=== PATIENT | male | born 1940 | race Caucasian/White ===

== ENCOUNTER → 2017-03-22 | Outpatient (CLI) | payer BC ==
[~2017-03-22] MED LIST: ACET-1138 PO; ACET-1256 PO; ALLO100T PO; AMLO2.5T PO; AMOX875T PO; APIX1TAB3 PO; ASPEC81 PO; ASPI81TA28 PO; AZIT250T PO; CBCI IV; CEPH500C2 PO; CLC6 PO; DILT120C68 PO; ELQ25 PO; ERGO500037 PO; ERTA1INJ IV; FLM4 PO; FRS/40 PO; INSDGI SC; INSDGIPEN SC; ISOS30TA35 PO; ISOS60TA25 PO; LCTX PO; LEVO-366 PO; LEVO125T5 PO; LEVO125T8 PO; LEVO1TAB33 PO; LPR25 PO; LVQ750 PO; METO-551 PO; METO50TA16 PO; MRLP17X PO; NRV5 PO; NVLG SC; NVLGI SC; ONDA4TAB10 SL; OXYSR10 PO; PRAV20TA PO; ROSU40TA PO; RXC5 PO; SENN-61 PO; SNK PO; SYN137 PO; TRAM-10 PO
[2017-03-22 12:34] LABS: HEMATOCRIT 43.7 % (42-52); MEAN CELL VOLUME 93.4 fL (80-100); MEAN CORPUSCULAR HEMOGLOBIN 31.2 pg (25-34); MEAN CORPUSCULAR HGB CONC 33.4 g/dl (32-36); PLATELET COUNT 285 K/uL (130-400); RED BLOOD COUNT 4.68 M/uL (4.7-6.1); WHITE BLOOD COUNT 8.32 K/uL (4.8-10.8)
[2017-03-22 12:39] LABS: MANUAL MICROSCOPIC REQUIRED? NO; REVIEW REQ? NO; URINE APPEARANCE CLEAR (CLEAR); URINE BILIRUBIN NEG (NEG); URINE COLOR YELLOW; URINE NITRITE NEG (NEG); URINE PH 6.5 (4.5-7.5); URINE SPECIFIC GRAVITY 1.013 (1.000-1.030); UROBILINOGEN NEG (NEG)
[2017-03-22 13:17] LABS: BLOOD UREA NITROGEN 84 mg/dl (7-18); CALCIUM 9.1 mg/dl (8.5-10.1); CARBON DIOXIDE 26 mmol/L (21-32); CHLORIDE 102 mmol/L (98-107); GLUCOSE 315 mg/dl (70-99); POTASSIUM 5.2 mmol/L (3.5-5.1); SODIUM 136 mmol/L (136-145)
[2017-03-22 13:18] LABS: PHOSPHORUS 3.8 mg/dl (2.5-4.9)
[2017-03-22 13:30] LABS: BETA-HYDROXYBUTYRATE 0.85 mg/dL (0.2-2.81)
[2017-03-22 13:41] LABS: URINE PROTIEN/CREAT RATIO 0.3 (0-0.2)
== END | disposition home or self-care (01) ==
LOC: C.LAB 11:39
PROVIDERS: ATTEND Internal Medicine Nephrology
DX: E11.9 Type 2 diabetes mellitus without complications (principal); N18.3 Chronic kidney disease, stage 3 (moderate); I10 Essential (primary) hypertension; N25.81 Secondary hyperparathyroidism of renal origin

== ENCOUNTER → 2017-04-13 | Outpatient (CLI) | payer BC ==
[2017-04-13 09:31] LABS: MEAN CELL VOLUME 93.8 fL (80-100); MEAN CORPUSCULAR HEMOGLOBIN 30.4 pg (25-34); MEAN CORPUSCULAR HGB CONC 32.4 g/dl (32-36); MEAN PLATELET VOLUME 9.6 fL (7.4-10.4); PLATELET COUNT 257 K/uL (130-400); RED BLOOD COUNT 4.48 M/uL (4.7-6.1); WHITE BLOOD COUNT 7.15 K/uL (4.8-10.8)
[2017-04-13 09:42] LABS: URINE APPEARANCE CLEAR (CLEAR); URINE BILIRUBIN NEG (NEG); URINE COLOR YELLOW; URINE NITRITE NEG (NEG); URINE SPECIFIC GRAVITY 1.016 (1.000-1.030); UROBILINOGEN NEG (NEG)
[2017-04-13 09:55] LABS: CALCIUM 9.1 mg/dl (8.5-10.1)
[2017-04-13 09:56] LABS: MANUAL MICROSCOPIC REQUIRED? NO; REVIEW REQ? NO
[2017-04-13 09:58] LABS: BLOOD UREA NITROGEN 94 mg/dl (7-18); BUN/CREATININE RATIO 33.7 (10-20); CARBON DIOXIDE 24 mmol/L (21-32); CHLORIDE 104 mmol/L (98-107); GLUCOSE 263 mg/dl (70-99); PHOSPHORUS 3.7 mg/dl (2.5-4.9); POTASSIUM 4.9 mmol/L (3.5-5.1); SODIUM 137 mmol/L (136-145); URINE PROTIEN/CREAT RATIO 0.3 (0-0.2); URINE TOTAL PROTEIN 22.9 mg/dl (0-11.9)
== END | disposition home or self-care (01) ==
LOC: C.LAB 07:06
PROVIDERS: ATTEND Internal Medicine Nephrology
DX: I15.0 Renovascular hypertension (principal); I12.9 Hypertensive chronic kidney disease with stage 1 through stage 4 chronic kidney disease, or unspecified chronic kidney disease; N18.3 Chronic kidney disease, stage 3 (moderate); E55.9 Vitamin D deficiency, unspecified; N17.9 Acute kidney failure, unspecified

== ENCOUNTER → 2017-05-01 | Outpatient (CLI) | payer BC ==
--- NOTE | 2017-05-01 08:42 | DIAGNOSTIC IMAGING REPORT ---
ULTRASOUND KIDNEYS AND BLADDER CLINICAL HISTORY: Prostatomegaly. Diabetes. COMPARISON STUDY: Renal ultrasound dated 08/16/2013. TECHNIQUE: Real-time, grayscale, and color flow sonography of the kidneys and bladder is performed. Images are reviewed in the transverse and longitudinal planes. FINDINGS: Kidneys: The kidneys are atrophic. The right kidney measures 10.1 x 5.2 x 6.0 cm and the left kidney measures 10.8 x 6.4 x 6.9 cm. There is no hydronephrosis. No shadowing renal calculi are identified. A right renal cyst measures 1.7 cm. There is no sonographic evidence of solid mass lesion. No perinephric fluid is identified. Bladder: The prostate gland is enlarged and heterogeneous measuring 5.3 cm in transverse diameter. Median lobe hypertrophy is observed. The bladder wall appears thickened and trabeculated suggesting the sequelae of chronic outlet obstruction. Bilateral ureteral jets were seen. IMPRESSION: 1. The kidneys demonstrate cortical atrophy and are without hydronephrosis. 2. Prostatomegaly with evidence of chronic bladder outlet obstruction. Electronically signed by: Clyde Esparza M.D. 05/01/2017 8:41 AM Dictated Date/Time: 05/01/2017 8:39 AM
--- NOTE | 2017-05-01 08:50 | DIAGNOSTIC IMAGING REPORT ---
Duplex renal arterial Doppler DUPLEX RENAL ARTERY CLINICAL HISTORY: I10 [id number] Acute kidney injury hypertension TECHNIQUE: Doppler evaluation COMPARISON STUDY: 08/19/2013 FINDINGS: Moderate stenosis proximal right renal artery. No significant stenotic change of the left renal arterial vasculature. Resistive indices are unremarkable. IMPRESSION: 50-60% narrowing right renal artery at its origin. No additional significant stenotic process. Electronically signed by: Eliot Short M.D. 05/01/2017 8:49 AM Dictated Date/Time: 05/01/2017 8:30 AM
== END | disposition home or self-care (01) ==
LOC: C.ULTR 07:21
PROVIDERS: ATTEND Internal Medicine Nephrology
DX: I10 Essential (primary) hypertension (principal); N17.9 Acute kidney failure, unspecified; E11.9 Type 2 diabetes mellitus without complications; N18.3 Chronic kidney disease, stage 3 (moderate); N25.81 Secondary hyperparathyroidism of renal origin; N40.0 Benign prostatic hyperplasia without lower urinary tract symptoms

== ENCOUNTER → 2017-05-24 | Outpatient (CLI) | payer BC ==
[~2017-05-24] MED LIST changes: -AMOX875T PO; -AZIT250T PO; -ELQ25 PO; -FLM4 PO; -INSDGIPEN SC; -LCTX PO; -LEVO-366 PO; +LEVO125T4 PO; -LEVO125T5 PO; -LVQ750 PO; -MRLP17X PO; -ONDA4TAB10 SL
[2017-05-24 16:30] LABS: BASO % 0.4 %; BASO ABS # 0.04 K/uL (0-0.2); COMPLETE YES; EOS % 3.9 %; HEMATOCRIT 44.2 % (42-52); IG% 0.6 %; LYMPH % 23.9 %; LYMPH ABS # 2.41 K/uL (1.2-3.4); MEAN CELL VOLUME 92.9 fL (80-100); MEAN CORPUSCULAR HEMOGLOBIN 31.7 pg (25-34); MEAN CORPUSCULAR HGB CONC 34.2 g/dl (32-36); MEAN PLATELET VOLUME 9.4 fL (7.4-10.4); MONO % 12.4 %; NEUT % 58.8 %; PLATELET COUNT 308 K/uL (130-400); RED BLOOD COUNT 4.76 M/uL (4.7-6.1); WHITE BLOOD COUNT 10.09 K/uL (4.8-10.8)
[2017-05-24 17:01] LABS: BLOOD UREA NITROGEN 33 mg/dl (7-18); BUN/CREATININE RATIO 19.2 (10-20); CALCIUM 9.3 mg/dl (8.5-10.1); CARBON DIOXIDE 27 mmol/L (21-32); CHLORIDE 102 mmol/L (98-107); GLUCOSE 140 mg/dl (70-99); POTASSIUM 4.4 mmol/L (3.5-5.1); SODIUM 138 mmol/L (136-145); URIC ACID 6.8 mg/dl (2.6-7.2)
[2017-05-24 17:02] LABS: PHOSPHORUS 3.2 mg/dl (2.5-4.9)
[2017-05-24 18:26] LABS: LYME DISEASE AB IGG NEG (NEG); LYME DISEASE AB IGM NEG (NEG)
== END | disposition home or self-care (01) ==
LOC: C.LAB1850 15:20
PROVIDERS: ATTEND Physician Assistant
DX: E11.9 Type 2 diabetes mellitus without complications (principal); N40.0 Benign prostatic hyperplasia without lower urinary tract symptoms; N25.81 Secondary hyperparathyroidism of renal origin; I10 Essential (primary) hypertension; N17.9 Acute kidney failure, unspecified; N18.3 Chronic kidney disease, stage 3 (moderate); L03.113 Cellulitis of right upper limb; M10.9 Gout, unspecified

== ENCOUNTER 2017-05-25 16:11 | Emergency (ER) | payer BC ==
[~2017-05-25] VITALS: Ht 193 cm; Wt 102.5 kg
[~2017-05-25 16:11] MED LIST changes: -ACET-1256 PO; -ALLO100T PO; -AMLO2.5T PO; -APIX1TAB3 PO; -ASPI81TA28 PO; -CBCI IV; -CEPH500C2 PO; -CLC6 PO; -ERGO500037 PO; -ERTA1INJ IV; -LEVO125T4 PO; -LEVO1TAB33 PO; -LPR25 PO; -METO50TA16 PO; -NRV5 PO; -NVLG SC; -ROSU40TA PO; -SENN-61 PO; -SYN137 PO; -TRAM-10 PO
[2017-05-25 16:21] VITALS: TEMP 36.5; Ht 193 cm; Wt 102.5 kg
[2017-05-25] MEDS ORDERED: CEFTRIAXONE SOD INJ 1 GM ADDVIAL IV STA (16:41)
[2017-05-25] MEDS ORDERED: SODIUM CHLORIDE 0.9% 1000ML 1,000 ML IV STA (16:41)
[2017-05-25] MEDS ORDERED: TRAM-10 PO (16:41)
[2017-05-25] MEDS ORDERED: SODIUM CHLORIDE 0.9% 1000ML 1,000 ML IV ONE (16:41)
--- NOTE | 2017-05-25 16:41 | EMERGENCY ROOM VISIT NOTE ---
History Report prepared by Stevenson: Yony Morris Under the Supervision of: Dr. Dannie Obrien M.D. First contact with patient: 16:28 Chief Complaint: SWELLING TO EXTREMITY Stated Complaint: RED/SWELLING TO LT FOOT AND RT FORE FINGER History of Present Illness The patient is a 76 year old male with a history of diabetes who presents to the Emergency Room with complaints of worsening extremity swelling that started over a week ago. Per the patient's , the patient started having left foot swelling, redness, and pain over a week ago. The patient thought it was gout as he had a history of that, but the symptoms have persisted. He went to see a PA ( family medicine) and was put on Prednisone. The patient had 5 doses of the Prednisone and finished it. However, the patient's says that the Prednisone made the patient's sugars go over 400. Around 5 days ago, the patient started having right hand and finger swelling, redness, and pain. The patient saw the PA again, and had blood tests done (including Lyme), which resulted as normal this morning. He was put on Keflex, and has had 4 doses so far, with no relief of symptoms. The patient adds that he had chills a couple nights ago. He denies any fevers, chest pain, shortness of breath, or abdominal pain. The patient says that he has a history of kidney disease and hypertension. Source of History: patient, spouse/significant other Onset: Over a week ago Position: hand (right), foot (left) Quality: other (swelling, redness, pain) Timing: worsening Associated Symptoms: + chills (a couple nights ago), No fevers, No chest pain, No SOB, No abdominal pain Review of Systems See HPI for pertinent positives & negatives. A total of 10 systems reviewed and were otherwise negative. Past Medical & Surgical Medical Problems: (1) Diabetes mellitus Surgical Problems: (1) Post-operative state Old medical records were reviewed. Nurse's notes were reviewed and I agree with. Family History Family history omitted secondary to patient's advanced age. Social History Smoking Status: Former Smoker Alcohol Use: none Drug Use: none Marital Status: Housing Status: lives with family Occupation Status: retired Current/Historical Medications Scheduled Aspirin (Aspirin Ec), 81 MG PO DAILY Cephalexin Monohydrate (Keflex), 500 MG PO QID Diltiazem Hcl Ext Rel (Tiazac), 120 MG PO QAM Furosemide (Lasix), 40 MG PO QAM Insulin Aspart (Novolog), 1 DOSE SC AC Insulin Glargine (Lantus), 100 SC HS Isosorbide Mononitrate Ext Rel (Imdur Ext Rel), 60 MG PO QAM Isosorbide Mononitrate Ext Rel (Imdur Ext Rel), 1 TAB PO QAM Levothyroxine Sodium (Levothyroxine Sodium), 1 TAB PO QAM Metoprolol Tartrate (Lopressor), 50 MG PO BID Pravastatin (Pravachol ), 40 MG PO QAM Senna (Senna Lax), 17.2 MG PO HS Scheduled PRN Acetaminophen (Tylenol), 1,000 MG PO Q8H PRN for Pain Tramadol (Ultram), 50 MG PO Q4H PRN for Pain Allergies Coded Allergies: No Known Allergies (Verified , 05/25/17) Physical Exam Vital Signs Date Time Temp Pulse Resp B/P (MAP) Pulse Ox O2 Delivery O2 Flow Rate FiO2 05/25/17 18:39 61 18 181/78 99 05/25/17 17:49 60 16 169/60 100 Room Air 05/25/17 16:21 36.5 63 18 91/65 98 Room Air Physical Exam General: Well developed well nourished non ill appearing older male in no acute distress, breathing comfortably on room air. Normal speech HEENT: Normal cephalic atraumatic. Pupils are equal round and reactive to light. Extraocular movements are intact. Oropharynx is pink with moist mucous membranes. No swelling of the mouth lips or tongue. Neck: Supple with a midline trachea. No meningeal signs or stiffness, no JVD or bruits. No Stridor. Chest: Clear to auscultation bilaterally. No wheezes or rhonchi. No increased work of breathing. Heart: regular rate and rhythm. Abdomen: Soft nontender, nondistended without rebound guarding or rigidity. Extremities: Minimal redness of distal left foot, no warmth, 2+ pulses. Redness of right index finger and swelling into hand, full range of motion, normal pulse. Spine/Back. Non tender to palpation. No CVA tenderness Skin: Good turgor without rashes. Neurologic exam: Cranial nerves two through 12 are intact. Motor and sensation are intact and symmetrical throughout. Medical Decision & Procedures ER Provider Diagnostic Interpretation: X-ray results as stated below per interpretation by me and the radiologist: RIGHT HAND 3 VIEWS CLINICAL HISTORY: Right second finger pain and swelling. FINDINGS: 3 views of the right hand are obtained. No prior studies are available for comparison at the time of dictation. The skeletal structures are osteopenic. A ring is noted on the fourth finger. No fracture is identified. Mild osteoarthritic changes present the first carpometacarpal and metacarpophalangeal joints. Mild arthritic change is also seen involving the interphalangeal joints. No erosive change is identified. Soft tissue edema is present in the second and third digits. IMPRESSION: 1. Osteopenia and mild arthritic change as above. No acute bony abnormality is seen in the right hand. 2. Soft tissue swelling is noted in the second and third fingers. Electronically signed by: Clyde Esparza M.D. 05/25/2017 5:30 PM Dictated Date/Time: 05/25/2017 5:25 PM Laboratory Results 05/25/17 16:50 Red Blood Count 4.41, Mean Corpuscular Volume 93.7, Mean Corpuscular Hemoglobin 30.2, Mean Corpuscular Hemoglobin Concent 32.2, Mean Platelet Volume 9.3, Neutrophils (%) (Auto) 55.1, Lymphocytes (%) (Auto) 27.3, Monocytes (%) (Auto) 13.3, Eosinophils (%) (Auto) 3.5, Basophils (%) (Auto) 0.5, Neutrophils # (Auto ) 4.13, Lymphocytes # (Auto) 2.05, Monocytes # (Auto) 1.00, Eosinophils # (Auto ) 0.26, Basophils # (Auto) 0.04 05/25/17 16:50 Test 05/25/17 16:50 White Blood Count 7.50 K/uL (4.8-10.8) Red Blood Count 4.41 M/uL (4.7-6.1) Hemoglobin 13.3 g/dL (14.0-18.0) Hematocrit 41.3 % (42-52) Mean Corpuscular Volume 93.7 fL (80-100) Mean Corpuscular Hemoglobin 30.2 pg (25-34) Mean Corpuscular Hemoglobin Concent 32.2 g/dl (32-36) Platelet Count 273 K/uL (130-400) Mean Platelet Volume 9.3 fL (7.4-10.4) Neutrophils (%) (Auto) 55.1 % Lymphocytes (%) (Auto) 27.3 % Monocytes (%) (Auto) 13.3 % Eosinophils (%) (Auto) 3.5 % Basophils (%) (Auto) 0.5 % Neutrophils # (Auto) 4.13 K/uL (1.4-6.5) Lymphocytes # (Auto) 2.05 K/uL (1.2-3.4) Monocytes # (Auto) 1.00 K/uL (0.11-0.59) Eosinophils # (Auto) 0.26 K/uL (0-0.5) Basophils # (Auto) 0.04 K/uL (0-0.2) RDW Standard Deviation 44.5 fL (36.4-46.3) RDW Coefficient of Variation 13.0 % (11.5-14.5) Immature Granulocyte % (Auto) 0.3 % Immature Granulocyte # (Auto) 0.02 K/uL (0.00-0.02) Erythrocyte Sedimentation Rate 27 mm/hr (0-14) Anion Gap 8.0 mmol/L (3-11) Est Creatinine Clear Calc Drug Dose 42.2 ml/min Estimated GFR () 41.2 Estimated GFR (Non- 35.5 BUN/Creatinine Ratio 18.2 (10-20) Uric Acid 7.1 mg/dl (2.6-7.2) Calcium Level 8.8 mg/dl (8.5-10.1) Total Bilirubin 0.7 mg/dl (0.2-1) Direct Bilirubin 0.2 mg/dl (0-0.2) Aspartate Amino Transf (AST/SGOT) 16 U/L (15-37) Alanine Aminotransferase (ALT/SGPT) 26 U/L (12-78) Alkaline Phosphatase 71 U/L (45-117) C-Reactive Protein 2.63 mg/dl (0-0.29) Total Protein 6.3 gm/dl (6.4-8.2) Albumin 3.2 gm/dl (3.4-5.0) Lipase 142 U/L (73-393) Laboratory studies as stated above per my review. Medications Administered Medications (Trade) Dose Ordered Sig/Erik Route Start Time Stop Time Status Last Admin Dose Admin Sodium Chloride 1,000 ml @ 999 mls/hr Q1H1M STAT IV 05/25/17 16:41 05/25/17 17:41 DC 05/25/17 16:52 999 MLS/HR Ceftriaxone Sodium (Rocephin Inj) 1 gm NOW STAT IV 05/25/17 16:41 05/25/17 16:45 DC 05/25/17 16:55 1 GM ED Course 1631: Past medical records reviewed. The patient was evaluated in room A10, and a complete history and physical examination were performed. 164: Ordered Rocephin Inj 1 gm IV, NSS 1000 ml @ 150 mls/hr IV, NSS 1000 ml @ 999 mls/hr IV. 1824: Upon reevaluation, the patient is feeling better. His redness in the foot is almost completely gone, and the redness in his hand is less. I discussed the results and treatment plan with him. He verbalized agreement of the treatment plan. The patient was discharged home. Medical Decision Differentials include, but are not limited to; cellulitis, endocarditis, Lyme disease, gout, electrolyte or metabolic abnormality. Medication Reconciliation: I attest that I have personally reviewed the patient' s current medication list. Blood pressure Screening: Patient was found to have normal blood pressure on screening and does not require follow-up. This patient comes in as described above. He was placed in room A 10. He is here for treatment and evaluation of redness left foot and also right index finger. He looks well on exam and is been afebrile and his no systemic complaints she's been on Keflex and has had a couple dosages. There are lines drawn around these areas compared to yesterday he does not appear to have extended. The left foot is minimally red at this point compared to the right hand. He has no murmurs on exam and nothing to suggest endocarditis. Multiple blood testing was obtained he has no elevation of his white count the sedimentation rate and PRP are mildly elevated however. Blood cultures have been obtained and are pending. He was given Rocephin 1 g IV and reassessed in the ER. He remained stable and looks well. The redness has gone down significantly while he was here and the left foot minimally red and the right hand is much less red. X-rays are unremarkable the hand. Uric acid is unremarkable. It could be related to gout or another inflammatory process. Lyme testing was negative yesterday. The patient strongly desires to go home. I think this is reasonable with close follow-up. I encouraged him to return here tomorrow or to her regular doctor's office for recheck. Sooner if: increasing redness, fever of chills, worsening of symptoms, any new problems or concerns. The patient and his are happy with plan and he was discharged to home. Impression Primary Impression: Cellulitis of right hand Additional Impression: Cellulitis of left foot Scribe Attestation The scribe's documentation has been prepared under my direction and personally reviewed by me in its entirety. I confirm that the note above accurately reflects all work, treatment, procedures, and medical decision making performed by me. Medication Reconciliation: I attest that I have personally reviewed the patient' s current medication list. Departure Information Dispostion Home / Self-Care Referrals Navi Padilla M.D. (PCP) Forms HOME CARE DOCUMENTATION FORM, IMPORTANT VISIT INFORMATION, WORK / SCHOOL INSTRUCTIONS Patient Instructions My [facility] Additional Instructions Rest. Drink plenty of fluids. Continue her Keflex/cephalexin Return tomorrow here or your doctor's office for recheck Return sooner if: Fever or chills, increasing redness or red streaks, chest pain , worsening symptoms, any new problems or concerns Problem Qualifiers
[2017-05-25] MEDS ORDERED: ACET-1256 PO (16:43)
[2017-05-25] MEDS ORDERED: ASPI81TA28 PO (16:44)
[2017-05-25] MEDS ORDERED: NVLG SC (16:47)
[2017-05-25] MEDS ORDERED: INSDGI SC (16:49)
[2017-05-25] MEDS ORDERED: LEVO125T4 PO (16:52)
[2017-05-25] MEDS ORDERED: CEPH500C2 PO (16:55)
[2017-05-25 17:23] LABS: BASO % 0.5 %; BASO ABS # 0.04 K/uL (0-0.2); COMPLETE YES; EOS % 3.5 %; HEMATOCRIT 41.3 % (42-52); IG% 0.3 %; LYMPH % 27.3 %; LYMPH ABS # 2.05 K/uL (1.2-3.4); MEAN CELL VOLUME 93.7 fL (80-100); MEAN CORPUSCULAR HEMOGLOBIN 30.2 pg (25-34); MEAN CORPUSCULAR HGB CONC 32.2 g/dl (32-36); MEAN PLATELET VOLUME 9.3 fL (7.4-10.4); MONO % 13.3 %; NEUT % 55.1 %; PLATELET COUNT 273 K/uL (130-400); RED BLOOD COUNT 4.41 M/uL (4.7-6.1)
--- NOTE | 2017-05-25 17:31 | DIAGNOSTIC IMAGING REPORT ---
RIGHT HAND 3 VIEWS CLINICAL HISTORY: Right second finger pain and swelling. FINDINGS: 3 views of the right hand are obtained. No prior studies are available for comparison at the time of dictation. The skeletal structures are osteopenic. A ring is noted on the fourth finger. No fracture is identified. Mild osteoarthritic changes present the first carpometacarpal and metacarpophalangeal joints. Mild arthritic change is also seen involving the interphalangeal joints. No erosive change is identified. Soft tissue edema is present in the second and third digits. IMPRESSION: 1. Osteopenia and mild arthritic change as above. No acute bony abnormality is seen in the right hand. 2. Soft tissue swelling is noted in the second and third fingers. Electronically signed by: Clyde Esparza M.D. 05/25/2017 5:30 PM Dictated Date/Time: 05/25/2017 5:25 PM
[2017-05-25 18:04] LABS: C-REACTIVE PROTEIN 2.63 mg/dl (0-0.29); URIC ACID 7.1 mg/dl (2.6-7.2)
[2017-05-25 18:06] LABS: BUN/CREATININE RATIO 18.2 (10-20); CALCIUM 8.8 mg/dl (8.5-10.1); CREATININE 1.8 mg/dl (0.60-1.40); POTASSIUM 5.1 mmol/L (3.5-5.1)
[2017-05-25 18:39] VITALS: BP 181/78; PULSE 61; O2SAT 99
== END 2017-05-25 18:40 | disposition home or self-care (01) ==
LOC: C.EDB 16:13 → C.EDA 18:40
DX: L03.113 Cellulitis of right upper limb (principal); L03.116 Cellulitis of left lower limb; I12.9 Hypertensive chronic kidney disease with stage 1 through stage 4 chronic kidney disease, or unspecified chronic kidney disease; N18.9 Chronic kidney disease, unspecified; E11.9 Type 2 diabetes mellitus without complications; Z87.891 Personal history of nicotine dependence; Z79.82 Long term (current) use of aspirin; Z79.4 Long term (current) use of insulin; Z79.899 Other long term (current) drug therapy

== ENCOUNTER → 2017-06-03 | Outpatient (CLI) | payer BC ==
[~2017-06-03] MED LIST changes: -ACET-1138 PO; +ACET-1256 PO; +ALLO100T PO; +AMLO2.5T PO; +APIX1TAB3 PO; -ASPEC81 PO; +ASPI81TA28 PO; +CBCI IV; +CEPH500C2 PO; +CLC6 PO; +ERGO500037 PO; +ERTA1INJ IV; +LEVO125T4 PO; -LEVO125T8 PO; +LEVO1TAB33 PO; +LPR25 PO; +METO50TA16 PO; +NRV5 PO; +NVLG SC; -NVLGI SC; -OXYSR10 PO; +ROSU40TA PO; -RXC5 PO; +SENN-61 PO; +SYN137 PO; +TRAM-10 PO
[2017-06-03 11:16] LABS: HEMATOCRIT 40.9 % (42-52); MEAN CELL VOLUME 92.1 fL (80-100); MEAN CORPUSCULAR HEMOGLOBIN 30.4 pg (25-34); MEAN PLATELET VOLUME 9.2 fL (7.4-10.4); PLATELET COUNT 349 K/uL (130-400); RED BLOOD COUNT 4.44 M/uL (4.7-6.1)
[2017-06-03 11:27] LABS: BLOOD UREA NITROGEN 37 mg/dl (7-18); GLUCOSE 136 mg/dl (70-99)
[2017-06-03 11:28] LABS: ALT/SGPT 25 U/L (12-78); BUN/CREATININE RATIO 20.6 (10-20); CALCIUM 9.5 mg/dl (8.5-10.1); CARBON DIOXIDE 26 mmol/L (21-32); CHLORIDE 107 mmol/L (98-107); POTASSIUM 4.2 mmol/L (3.5-5.1); SODIUM 138 mmol/L (136-145); URIC ACID 6.4 mg/dl (2.6-7.2)
[2017-06-03 11:30] LABS: ALB/GLOB RATIO 0.8 (0.9-2); ALKALINE PHOSPHATASE 72 U/L (45-117); AST/SGOT 18 U/L (15-37)
== END | disposition home or self-care (01) ==
LOC: C.LABBC 07:40
PROVIDERS: ATTEND Internal Medicine Nephrology
DX: M1A.9XX0 Chronic gout, unspecified, without tophus (tophi) (principal); N18.3 Chronic kidney disease, stage 3 (moderate); N25.81 Secondary hyperparathyroidism of renal origin; I12.9 Hypertensive chronic kidney disease with stage 1 through stage 4 chronic kidney disease, or unspecified chronic kidney disease; N17.9 Acute kidney failure, unspecified

== ENCOUNTER → 2017-06-20 | Outpatient (CLI) | payer BC ==
--- NOTE | 2017-06-20 09:13 | DIAGNOSTIC IMAGING REPORT ---
RIGHT HAND MIN 3 VIEWS ROUTINE CLINICAL HISTORY: Right index finger pain and swelling. COMPARISON: Right hand radiographs May 25, 2017. FINDINGS: A ring is present on the fourth digit. There is marked soft tissue swelling of the right second digit. No fracture or radiopaque foreign body is identified. There is possible erosion within the lateral cortex of the mid shaft of the proximal phalanx of the right second finger which was not evident on prior exam of May 25, 2017. No additional sites of bony erosion are present. There is mild chondrocalcinosis within the TFCC. IMPRESSION: Marked soft tissue swelling of the right second finger with possible bony erosion involving the mid shaft of the proximal phalanx of the right second finger which was not evident on prior exam. This finding is nonspecific but could reflect osteomyelitis. An MRI could be obtained if no contraindications. Electronically signed by: Beny Ruiz M.D. 06/20/2017 9:12 AM Dictated Date/Time: 06/20/2017 9:04 AM
[2017-06-20 09:34] LABS: BASO % 0.5 %; BASO ABS # 0.05 K/uL (0-0.2); COMPLETE YES; EOS % 4.5 %; IG% 0.2 %; MEAN CELL VOLUME 92.3 fL (80-100); MEAN CORPUSCULAR HEMOGLOBIN 30.8 pg (25-34); MEAN CORPUSCULAR HGB CONC 33.3 g/dl (32-36); MEAN PLATELET VOLUME 9.4 fL (7.4-10.4); MONO % 10.1 %; NEUT % 51.7 %; PLATELET COUNT 263 K/uL (130-400); RED BLOOD COUNT 4.55 M/uL (4.7-6.1)
[2017-06-20 10:58] LABS: ESTIMATED AVERAGE GLUCOSE 269 mg/dl; HA1C FLAG Normal (Normal)
[2017-06-20 11:39] LABS: ALKALINE PHOSPHATASE 86 U/L (45-117); ALT/SGPT 29 U/L (12-78); AST/SGOT 18 U/L (15-37); BLOOD UREA NITROGEN 34 mg/dl (7-18); BUN/CREATININE RATIO 18.8 (10-20); CALCIUM 9.2 mg/dl (8.5-10.1); CARBON DIOXIDE 26 mmol/L (21-32); CHLORIDE 107 mmol/L (98-107); GLUCOSE 95 mg/dl (70-99); HDL CHOLESTEROL 43 mg/dl; POTASSIUM 3.7 mmol/L (3.5-5.1); SODIUM 140 mmol/L (136-145); TRIGLYCERIDES 115 mg/dl (0-150); URIC ACID 5.8 mg/dl (2.6-7.2); VERY LOW DENSITY LIPOPROT CALC 23 mg/dl
[2017-06-20 11:50] LABS: CHOLESTEROL 94 mg/dl (0-200); CHOLESTEROL/HDL RATIO 2.2; LDL CHOLESTEROL CALCULATED 28 mg/dl
== END | disposition home or self-care (01) ==
LOC: C.LAB1850 07:33
PROVIDERS: ATTEND Internal Medicine
DX: M79.89 Other specified soft tissue disorders (principal); E11.22 Type 2 diabetes mellitus with diabetic chronic kidney disease; N18.3 Chronic kidney disease, stage 3 (moderate); N17.9 Acute kidney failure, unspecified; E55.9 Vitamin D deficiency, unspecified; M10.9 Gout, unspecified; E03.9 Hypothyroidism, unspecified; E11.42 Type 2 diabetes mellitus with diabetic polyneuropathy

== ENCOUNTER → 2017-06-22 | Outpatient (CLI) | payer BC ==
--- NOTE | 2017-06-22 08:56 | DIAGNOSTIC IMAGING REPORT ---
RIGHT UPPER EXT NONJOINT WITHOUT HISTORY: 76 years-old Male M86.9 suspected osteomyelitis of the right second finger. COMPARISON: Right hand radiographs 06/20/2017 TECHNIQUE: Multiplanar multisequence MRI of the right hand was obtained without IV contrast. FINDINGS: There is moderate to extensive soft tissue swelling of the second digit centered about the PIP joint and proximal phalanx. Decreased T1 and increased T2 marrow signal with indistinctness of the cortex involves the distal aspect of the second proximal phalanx, nicely demonstrated on image 23 of the axial series and image 16 of the coronal series suggesting acute osteomyelitis. Additionally there is a prominent amount of periosteal edema within this distribution. The adjacent PIP joint is intact. Mild bone marrow edema involves the base of the second middle phalanx, notably involving the volar aspect without significantly decreased T1 signal suggesting reactive changes without definite osteomyelitis at this time. No focal drainable abscess seen. Additionally, mild amount of fluid surrounds the second flexor digitorum longus adjacent to the bony findings as above suggesting reactive or infectious tenosynovitis. No tendon tear identified. No additional focal bone marrow edema seen throughout the imaged hand or wrist. No fracture. Marginal spurring is mild joint space narrowing is seen throughout the metacarpal phalangeal and interphalangeal joints. Moderate degenerative changes involve the first carpal metacarpal joint. Additional joint space narrowing and marginal spurring is seen throughout the imaged intercarpal joints. The remaining imaged flexor and extensor tendons appear unremarkable. IMPRESSION: 1. Findings compatible with acute osteomyelitis involving the distal aspect of the second proximal phalanx with associated extensive soft tissue edema and swelling about the second digit centered at the PIP joint. 2. Mild bone marrow edema involves the adjacent second middle phalangeal base, notably along the volar aspect suggesting associated reactive changes. Early developing osteomyelitis may have a similar appearance. 3. Mild amount of fluid surrounding the second flexor digitorum longus adjacent to the PIP joint suggests reactive or infectious tenosynovitis. 4. Degenerative changes about the hand and wrist as above. The above report was generated using voice recognition software. It may contain grammatical, syntax or spelling errors. Electronically signed by: Reginald Pillai M.D. 06/22/2017 8:54 AM Dictated Date/Time: 06/22/2017 8:44 AM
== END | disposition home or self-care (01) ==
LOC: C.MRI 07:23
PROVIDERS: ATTEND Internal Medicine
DX: M86.9 Osteomyelitis, unspecified (principal)

== ENCOUNTER → 2017-07-06 | Outpatient (CLI) | payer BC ==
--- NOTE | 2017-07-06 16:43 | DIAGNOSTIC IMAGING REPORT ---
LEFT LOWER EXT JOINT WITHOUT CLINICAL HISTORY: 76 years-old Male presenting with left forefoot pain, concern for osteomyelitis, 2 months of symptoms, no trauma or injury, site of clinical concern marked. TECHNIQUE: Multisequence, multiplanar MR imaging of the left forefoot was performed without the use of intravenous contrast. IV contrast: None. COMPARISON: None. FINDINGS: Localizer images: Unremarkable. A skin marker is noted over the dorsum of the forefoot at the level of the second and third metatarsophalangeal joints. Along the entire dorsum of the foot is diffuse subcutaneous edema. There is also diffuse interfascial and intramuscular edema in both the flexor and extensor compartments of the forefoot. T2 hyperintensity with accompanying T1 hypointensity noted in the medial, middle, and lateral cuneiforms to varying degrees. Visualized portion of the cuboid appears normal. T2 hyperintensity with accompanying mild T1 hypointensity noted in the bases of the second through fifth metatarsals. Osseous erosion suggested at the medial base of the third and fourth metatarsals. Fluid noted within the articulation between the bases of the third and fourth metatarsals. Extensive T2 hyperintensity with accompanying T1 hypointensity along the fourth metatarsal diaphysis, which does not extend into the head of the fourth metatarsal. More subtle heterogeneous and mild T2 hyperintensity noted along the second metatarsal diaphysis extending into the metatarsal head without accompanying T1 hypointensity. No focal fluid collection to suggest abscess. Phalanges appear spared as do the metatarsophalangeal joints. IMPRESSION: Findings highly suspicious for osteomyelitis of the fourth metatarsal subjacent to diffuse subcutaneous infiltration along the dorsum of the foot which could suggest cellulitis. Subtle changes at the bases of the third and fourth metatarsals could suggest osteomyelitis/septic arthritis at this articulation. More subtle signal abnormalities within the tarsal bones, bases of the second through fifth metatarsals, and second metatarsal could be reactive or represent early osteomyelitis. Electronically signed by: Clifford Rodríguez M.D. 07/06/2017 4:42 PM Dictated Date/Time: 07/06/2017 4:31 PM
== END | disposition home or self-care (01) ==
LOC: C.MRIBC 15:18
PROVIDERS: ATTEND Internal Medicine Infectious Disease
DX: M86.9 Osteomyelitis, unspecified (principal)

== ENCOUNTER 2017-07-11 15:29 | Inpatient (IN) | payer BC, OTHER ==
[~2017-07-11] VITALS: Ht 193 cm; Wt 106.0 kg
[~2017-07-11 15:29] MED LIST changes: -ALLO100T PO; -AMLO2.5T PO; -APIX1TAB3 PO; -CBCI IV; -CEPH500C2 PO; -CLC6 PO; -ERGO500037 PO; -ERTA1INJ IV; -LEVO1TAB33 PO; -LPR25 PO; -METO50TA16 PO; -NRV5 PO; -ROSU40TA PO; -SENN-61 PO; -SYN137 PO
--- NOTE | 2017-07-11 17:10 | EMERGENCY ROOM VISIT NOTE ---
History Report prepared by Stevenson: Juliana Rodriguez Under the Supervision of: Dr. Clyde Yoon M.D. First contact with patient: 16:44 Chief Complaint: FOOT PAIN Stated Complaint: SORE LEFT FOOT History of Present Illness The patient is a 76 year old male who presents to the Emergency Room with complaints of constant left foot pain. The patient states that he has had increased swelling in his left foot. He rates his pain as a 8/10 when walking. The patient has osteomyelitis and was started IV Daptomycin and oral Levaquin on Monday--4 days ago. He denies fevers or chills. Dr. Mendoza referred the patient in to the ED. He has been dealing with osteomyelitis now for 1.5 months and has been on different antibiotics over that time frame. He has osteomyelitis in his right second finger but this site is improving and far less painful than before. He is here today because the left foot symptoms seem to be worsening. Source of History: patient Position: foot (left) Timing: constant, worsening Associated Symptoms: No fevers, No chills Note: Pt notes increased swelling. Review of Systems See HPI for pertinent positives & negatives. A total of 10 systems reviewed and were otherwise negative. Past Medical & Surgical Medical Problems: (1) Diabetes mellitus Surgical Problems: (1) Post-operative state Family History No pertinent family history stated. Social History Smoking Status: Former Smoker Alcohol Use: none Drug Use: none Marital Status: Housing Status: lives with family Occupation Status: retired Current/Historical Medications Scheduled Allopurinol (Zyloprim), 100 MG PO DAILY Amlodipine (Norvasc), 2.5 MG PO DAILY Aspirin (Aspirin Ec), 81 MG PO DAILY Daptomycin (Cubicin), 600 MG IV DAILY Ergocalciferol (Vitamin D 37030 Unit), 50,000 UNIT PO MONTHLY Insulin Aspart (Novolog), 1 DOSE SC AC Insulin Glargine (Lantus), 100 SC HS Insulin Glargine (Lantus), 10 UNITS SC QAM Levofloxacin (Levaquin), 500 MG PO DAILY Levothyroxine Sodium (Levothyroxine Sodium), 137 MCG PO DAILY Metoprolol Tartrate (Lopressor) (Lopressor), 50 MG PO QAM Rosuvastatin Calcium (Crestor), 40 MG PO DAILY Senna (Senokot), 1 TAB PO DAILY Scheduled PRN Acetaminophen (Tylenol), 1,000 MG PO Q8H PRN for Pain Tramadol (Ultram), 50 MG PO Q4H PRN for Pain Allergies Coded Allergies: No Known Allergies (Verified , 07/11/17) Physical Exam Vital Signs Date Time Temp Pulse Resp B/P (MAP) Pulse Ox O2 Delivery O2 Flow Rate FiO2 07/11/17 18:58 76 20 164/72 97 Room Air 07/11/17 17:20 75 20 158/71 97 Room Air 07/11/17 15:49 37.1 72 18 162/66 96 Room Air Physical Exam GENERAL: Patient is in no acute distress. HEENT: No acute trauma, normocephalic atraumatic, mucous membranes moist, no nasal congestion, no scleral icterus. NECK: No stridor, no adenopathy, no meningismus, trachea is midline. LUNGS: Clear to auscultation bilaterally, no wheeze, no rhonchi, breath sounds equal. HEART: Without murmurs gallops or rubs, regular rate and rhythm. ABDOMEN: Soft, nontender, bowel sounds positive, no hernias, no peritonitis. EXTREMITIES: Left foot warm, erythematous and swollen. Tenderness with palpation about the entire left foot. Right second finger swollen at PIP, no erythema or pain with movement of joint. Right lower extremity shows no edema or erythema. NEUROLOGIC: Oriented x 3, no acute motor or sensory deficits, no focal weakness. SKIN: No rash, no jaundice, no diaphoresis. Medical Decision & Procedures ER Provider Diagnostic Interpretation: Radiology results as stated below per my review and radiologist interpretation: LEFT LOWER EXTREMITY VENOUS DOPPLER FINDINGS: There is no deep venous thrombus within the left common femoral, superficial femoral or popliteal veins. There is minimal age indeterminate thrombus within the left posterior tibial vein. No additional sites of deep venous thrombus are present. IMPRESSION: Minimal thrombus within the left posterior tibial vein. No additional sites of deep venous thrombus. This thrombus is age indeterminate although the appearance favors chronic deep venous thrombus. Electronically signed by: Beny Ruiz M.D. Laboratory Results 07/11/17 17:20 Red Blood Count 4.00, Mean Corpuscular Volume 91.0, Mean Corpuscular Hemoglobin 30.3, Mean Corpuscular Hemoglobin Concent 33.2, Mean Platelet Volume 9.2, Neutrophils (%) (Auto) 54.0, Lymphocytes (%) (Auto) 28.7, Monocytes (%) (Auto) 13.2, Eosinophils (%) (Auto) 3.7, Basophils (%) (Auto) 0.2, Neutrophils # (Auto ) 4.32, Lymphocytes # (Auto) 2.30, Monocytes # (Auto) 1.06, Eosinophils # (Auto ) 0.30, Basophils # (Auto) 0.02 07/11/17 17:20 Test 07/11/17 17:20 White Blood Count 8.02 K/uL (4.8-10.8) Red Blood Count 4.00 M/uL (4.7-6.1) Hemoglobin 12.1 g/dL (14.0-18.0) Hematocrit 36.4 % (42-52) Mean Corpuscular Volume 91.0 fL (80-100) Mean Corpuscular Hemoglobin 30.3 pg (25-34) Mean Corpuscular Hemoglobin Concent 33.2 g/dl (32-36) Platelet Count 196 K/uL (130-400) Mean Platelet Volume 9.2 fL (7.4-10.4) Neutrophils (%) (Auto) 54.0 % Lymphocytes (%) (Auto) 28.7 % Monocytes (%) (Auto) 13.2 % Eosinophils (%) (Auto) 3.7 % Basophils (%) (Auto) 0.2 % Neutrophils # (Auto) 4.32 K/uL (1.4-6.5) Lymphocytes # (Auto) 2.30 K/uL (1.2-3.4) Monocytes # (Auto) 1.06 K/uL (0.11-0.59) Eosinophils # (Auto) 0.30 K/uL (0-0.5) Basophils # (Auto) 0.02 K/uL (0-0.2) RDW Standard Deviation 45.0 fL (36.4-46.3) RDW Coefficient of Variation 13.5 % (11.5-14.5) Immature Granulocyte % (Auto) 0.2 % Immature Granulocyte # (Auto) 0.02 K/uL (0.00-0.02) Erythrocyte Sedimentation Rate 53 mm/hr (0-14) Anion Gap 7.0 mmol/L (3-11) Est Creatinine Clear Calc Drug Dose 48.6 ml/min Estimated GFR () 44.1 Estimated GFR (Non- 38.1 BUN/Creatinine Ratio 23.3 (10-20) Calcium Level 9.1 mg/dl (8.5-10.1) C-Reactive Protein 3.93 mg/dl (0-0.29) Beta-Hydroxybutyric Acid 1.71 mg/dL (0.2-2.81) Laboratory results reviewed by me. Medications Administered Medications (Trade) Dose Ordered Sig/Erik Route Start Time Stop Time Status Last Admin Dose Admin Sodium Chloride 500 ml @ 999 mls/hr Q31M STAT IV 07/11/17 18:05 07/11/17 18:35 DC 07/11/17 18:53 999 MLS/HR Insulin Human Regular (novoLIN-R U-100 PER UNIT) 10 units NOW STAT IV 07/11/17 18:05 07/11/17 18:07 DC 07/11/17 18:53 10 UNITS ED Course 1700: The patient was evaluated in room B7. A complete history and physical exam was performed. 1714: [facility] [place] The patient will be evaluated for further management. 1805: Insulin Human Regular 10 units IV, Sodium Chloride 500 ml @ 999 mls/hr IV. 1810: Upon reexamination the patient is resting. I discussed results and treatment plan with the patient. He verbalizes agreement and understanding. The patient will be evaluated for further management. Medical Decision Differential diagnosis includes but is not limited to: failed outpatient treatment, DVT, bacteremia, cellulitis, worsening osteomyelitis. There is no leukocytosis or concerning anemia. Sedimentation rate and CRP are both somewhat elevated consistent with this infection. Some renal insufficiency was noted. Glucose was elevated at over 300. Left leg ultrasound shows what appears to be a possible chronic thrombus, no acute DVT seen. Blood cultures are pending. The patient is on IV daptomycin and oral Levaquin. Despite these meds, his left foot feels worse and is more swollen and reddened. There is more pain. The patient is failing outpatient treatment for osteomyelitis. The patient received IV insulin and IV saline. He was seen by the on-call hospitalist. Admission/observation is warranted. He likely will require some orthopedic intervention. I did speak with case management, the patient is aware of all his findings. Medication Reconcilliation Current Medication List: was personally reviewed by me Blood Pressure Screening Patient's blood pressure: Elevated blood pressure Blood pressure disposition: Elevated BP felt to be situational Consults Time Called: 1712 Consulting Physician: Dr. Beckett Returned Call: [phone] Discussed the patient's case. The patient will be evaluated for further management. Impression Primary Impression: Osteomyelitis Additional Impressions: Failure of outpatient treatment Hyperglycemia Scribe Attestation The scribe's documentation has been prepared under my direction and personally reviewed by me in its entirety. I confirm that the note above accurately reflects all work, treatment, procedures, and medical decision making performed by me. Departure Information Dispostion Being Evaluated By Hospitalist Referrals ,Navi Do M.D. (PCP) Patient Instructions My [facility] Problem Qualifiers
[2017-07-11 17:38] LABS: BASO % 0.2 %; BASO ABS # 0.02 K/uL (0-0.2); COMPLETE YES; EOS % 3.7 %; HEMATOCRIT 36.4 % (42-52); IG% 0.2 %; LYMPH % 28.7 %; MEAN CORPUSCULAR HEMOGLOBIN 30.3 pg (25-34); MEAN CORPUSCULAR HGB CONC 33.2 g/dl (32-36); MEAN PLATELET VOLUME 9.2 fL (7.4-10.4); MONO % 13.2 %; PLATELET COUNT 196 K/uL (130-400); WHITE BLOOD COUNT 8.02 K/uL (4.8-10.8)
[2017-07-11 18:00] LABS: BUN/CREATININE RATIO 23.3 (10-20); C-REACTIVE PROTEIN 3.93 mg/dl (0-0.29); CALCIUM 9.1 mg/dl (8.5-10.1); CREATININE 1.7 mg/dl (0.60-1.40); POTASSIUM 4.5 mmol/L (3.5-5.1)
[2017-07-11] MEDS ORDERED: NovoLIN-R INSULIN PER UNIT CHARGE IV STA (18:05)
[2017-07-11] MEDS ORDERED: SODIUM CHLORIDE 0.9% 500ML 500 ML IV STA (18:05)
[2017-07-11] MEDS ORDERED: SYN137 PO (18:09)
[2017-07-11] MEDS ORDERED: LEVO1TAB33 PO (18:09)
[2017-07-11 18:11] LABS: BETA-HYDROXYBUTYRATE 1.71 mg/dL (0.2-2.81)
[2017-07-11] MEDS ORDERED: SENN-61 PO (18:15)
[2017-07-11] MEDS ORDERED: MAGNESIUM HYDROXIDE SUSP 30 ML UDC PO PRN (18:15)
[2017-07-11] MEDS ORDERED: AMLO2.5T PO (18:15)
[2017-07-11] MEDS ORDERED: GLUCAGON FOR INJ 1 MG VIAL SQ PRN (18:15)
[2017-07-11] MEDS ORDERED: ERGO500037 PO (18:15)
[2017-07-11] MEDS ORDERED: DEXTROSE 50% 50 ML SYR IV PRN (18:15)
[2017-07-11] MEDS ORDERED: ROSU40TA PO (18:15)
[2017-07-11] MEDS ORDERED: GLUCOSE 10 TABS/TUBE PO PRN (18:15)
[2017-07-11] MEDS ORDERED: GLUCOSE 40% GEL 15 GM TUBE PO PRN (18:15)
[2017-07-11] MEDS ORDERED: HEPARIN SOD 5000 UNIT/0.5 ML CARP SQ SCH (18:15)
[2017-07-11] MEDS ORDERED: ALLO100T PO (18:15)
[2017-07-11] MEDS ORDERED: ONDANSETRON INJ 2 MG/ML 2 ML VIAL IV PRN (18:15)
[2017-07-11] MEDS ORDERED: ALUMINUM/MAGNESIUM/SIMETH (MAALOX MAX) 30 ML UDC PO PRN (18:15)
[2017-07-11] MEDS ORDERED: ACETAMINOPHEN 325 MG TAB PO PRN (18:15)
[2017-07-11] MEDS ORDERED: METO50TA16 PO (18:15)
[2017-07-11] MEDS ORDERED: CBCI IV (18:16)
[2017-07-11] MEDS ORDERED: INSDGI SC (18:27)
--- NOTE | 2017-07-11 18:46 | History and Physical ---
History & Physical Date & Time of Service: Jul 11, 2017 at 18:16 Chief Complaint: Sore Left Foot Primary Care Physician: Navi Padilla M.D. History of Present Illness Source: patient, spouse ( at bedside), clinic records, hospital records This is a 76 y/o male with a history of DM II, HTN, HLD, CAD, CKD stage III, hypothyroidism, BPH, and gout who presented to the ED on 07/11 with increasing pain and swelling in the left foot. The patient has known osteomyelitis in the left foot that he has been following with Dr. Mendoza as an outpatient for the last 2 months. The patient has failed multiple oral antibiotic therapies. The patient was recently started on daptomycin and PO Levaquin on 07/07. Despite this, he has developed worsening redness, swelling and pain in the left foot. The patient complains of an intermittent 8 or 9 out of 10 sharp pain in the left foot that is worse with walking/weight bearing. He denies any numbness or tingling. The patient also has osteomyelitis in his right second finger, but he states that this has been doing much better and he denies any pain there. The patient denies fevers, chills, sweats, chest pain, palpitations, claudication, cough, wheezing, shortness of breath, nausea, vomiting, abdominal pain, dysuria, hematuria, urinary retention, paralysis, weakness, numbness and tingling. Past Medical/Surgical History Medical Problems: (1) Diabetes mellitus type 2 Status: Chronic HTN HLD CAD CKD stage III Hypothyroidism BPH Gout Family History Diabetes mellitus Heart disease Hypertension Social History Smoking Status: Former Smoker (quit about 45 years ago) Smokeless Tobacco Use: No Alcohol Use: occasionally (rarely) Drug Use: none Marital Status: Housing status: lives with significant other Occupational Status: retired Immunizations History of Influenza Vaccine: No History of Tetanus Vaccine?: Yes Tetanus Immunization Date: Aug 05, 2013 History of Pneumococcal: Yes History of Hepatitis B Vaccine: No Multi-Drug Resistant Organisms History of MDRO: No Allergies Coded Allergies: No Known Allergies (Verified , 07/11/17) Home Medications Scheduled Allopurinol (Zyloprim), 100 MG PO DAILY Amlodipine (Norvasc), 2.5 MG PO DAILY Aspirin (Aspirin Ec), 81 MG PO DAILY Daptomycin (Cubicin), 600 MG IV DAILY Ergocalciferol (Vitamin D 71674 Unit), 50,000 UNIT PO MONTHLY Insulin Aspart (Novolog), 1 DOSE SC AC Insulin Glargine (Lantus), 100 SC HS Insulin Glargine (Lantus), 10 UNITS SC QAM Levofloxacin (Levaquin), 500 MG PO DAILY Levothyroxine Sodium (Levothyroxine Sodium), 137 MCG PO DAILY Metoprolol Tartrate (Lopressor) (Lopressor), 50 MG PO QAM Rosuvastatin Calcium (Crestor), 40 MG PO DAILY Senna (Senokot), 1 TAB PO DAILY Scheduled PRN Acetaminophen (Tylenol), 1,000 MG PO Q8H PRN for Pain Tramadol (Ultram), 50 MG PO Q4H PRN for Pain Review of Systems Constitutional: No fever, No chills, No sweats, No weakness, No fatigue Eyes: No worsening of vision, No eye pain, No diplopia ENT: No hearing loss, No sore throat, No trouble swallowing Respiratory: No cough, No wheezing, No shortness of breath Cardiovascular: No chest pain, No claudication, No palpitations Abdomen: No pain, No nausea, No vomiting Musculoskeletal: + joint pain (left foot), + swelling (left foot), No muscle pain, No calf pain Genitourinary - Male: No hematuria, No dysuria, No urinary retention Neurologic: No paralysis, No weakness, No numbness/tingling Integumentary: + color change (erythema left foot), No rash, No itch Physical Exam Vital Signs Date Time Temp Pulse Resp B/P (MAP) Pulse Ox O2 Delivery O2 Flow Rate FiO2 07/11/17 17:20 75 20 158/71 97 Room Air 07/11/17 15:49 37.1 72 18 162/66 96 Room Air General appearance: Well-developed, well-nourished, no apparent distress Head: Normocephalic, atraumatic Eyes: Normal inspection, PERRL, EOMI ENT: Normal ENT inspection, hearing grossly normal, pharynx normal Neck: Supple, no JVD, trachea midline Respiratory/Chest: Lungs clear to auscultation, normal breath sounds, no respiratory distress Cardiovascular: Regular rate & rhythm, no gallop, no murmur Abdomen/GI: Normal bowel sounds, non-tender, soft Extremities/Musculoskeletal: +Mild erythema and edema right second digit. Non- tender. Erythema left foot from toes to mid-dorsum. 2+ pitting edema left foot. Dorsum of foot TTP near bases of toes. Cap refill about 3 seconds. Sensation intact. No calf tenderness Neurological/Psych: Alert, normal mood/affect, oriented x 3 Skin: Normal color, warm/dry, no rash Diagnostics Laboratory Results Results Past 24 Hours Test 07/11/17 17:20 Range/Units White Blood Count 8.02 4.8-10.8 K/uL Red Blood Count 4.00 4.7-6.1 M/uL Hemoglobin 12.1 14.0-18.0 g/dL Hematocrit 36.4 42-52 % Mean Corpuscular Volume 91.0 80-100 fL Mean Corpuscular Hemoglobin 30.3 25-34 pg Mean Corpuscular Hemoglobin Concent 33.2 32-36 g/dl Platelet Count 196 130-400 K/uL Mean Platelet Volume 9.2 7.4-10.4 fL Neutrophils (%) (Auto) 54.0 % Lymphocytes (%) (Auto) 28.7 % Monocytes (%) (Auto) 13.2 % Eosinophils (%) (Auto) 3.7 % Basophils (%) (Auto) 0.2 % Neutrophils # (Auto) 4.32 1.4-6.5 K/uL Lymphocytes # (Auto) 2.30 1.2-3.4 K/uL Monocytes # (Auto) 1.06 0.11-0.59 K/uL Eosinophils # (Auto) 0.30 0-0.5 K/uL Basophils # (Auto) 0.02 0-0.2 K/uL RDW Standard Deviation 45.0 36.4-46.3 fL RDW Coefficient of Variation 13.5 11.5-14.5 % Immature Granulocyte % (Auto) 0.2 % Immature Granulocyte # (Auto) 0.02 0.00-0.02 K/uL Erythrocyte Sedimentation Rate 53 0-14 mm/hr Sodium Level 134 136-145 mmol/L Potassium Level 4.5 3.5-5.1 mmol/L Chloride Level 102 98-107 mmol/L Carbon Dioxide Level 25 21-32 mmol/L Anion Gap 7.0 3-11 mmol/L Blood Urea Nitrogen 40 7-18 mg/dl Creatinine 1.70 0.60-1.40 mg/dl Est Creatinine Clear Calc Drug Dose 48.6 ml/min Estimated GFR () 44.1 Estimated GFR (Non- 38.1 BUN/Creatinine Ratio 23.3 10-20 Random Glucose 354 70-99 mg/dl Calcium Level 9.1 8.5-10.1 mg/dl C-Reactive Protein 3.93 0-0.29 mg/dl Beta-Hydroxybutyric Acid 1.71 0.2-2.81 mg/dL Microbiology Results 07/11/17 Blood Culture, Received Pending 07/11/17 Blood Culture, Received Pending Impression Assessment and Plan 76 y/o male with a history of DM II, HTN, HLD, CAD, CKD stage III, hypothyroidism, BPH, and gout who presented to the ED on 07/11 with increasing pain and swelling in the left foot. Pt sent by Dr. Mendoza for further evaluation. Pt afebrile, VSS. ESR and CRP elevated at 53 and 3.93, respectively. No leukocytosis. Renal function about baseline. Random glucose elevated at 354, beta hydroxybutyric acid WNL. Pt received 10 units Novolin in ED. Osteomyelitis left foot, failed outpatient therapy -Admit to med/surg -Consult infectious disease, appreciate recs. Pt follows with Dr. Mendoza -Consult orthopedics, appreciate recs -NPO after midnight in case surgical intervention is needed -Daptomycin 600 mg IV q24h and Levaquin 500 mg IV q24h for now -Blood cultures pending -Doppler ultrasound LLE to r/o DVT -Continue home tramadol 40 mg PO q4h prn pain -Morphine 4 mg IV q4h prn pain -Reviewed previous MRIs. Osteomyelitis in left 4th metatarsal and likely 3rd metatarsal. Possible early osteomyelitis in 2nd metatarsal. Osteomyelitis in right second finger. DM II--last HgbA1c checked 06/20/17 was 11.0 -Continue Lantus 10 units SC qam and 100 units SC qpm. Pt will likely require increased insulin due to poor control, will leave up to day team -Insulin sliding scale -Check BSGs q ac and qhs HTN--stable -Continue Norvasc 2.5 mg PO qd and Lopressor 50 mg PO qd HLD, CAD--stable -Continue Crestor 40 mg PO qd and ASA 81 mg PO qd CKD stage III--baseline creatinine around 1.8 -Creatinine stable, at baseline Hypothyroidism -Continue Synthroid 137 mcg PO qd Gout -Continue allopurinol 100 mg PO qd DVT prophylaxis -Hold chemical prophylaxis for now in case surgical intervention is needed -TEDs and SCDs Code Status -Level I, FULL RESUSCITATION STATUS Attending Addendum: I have physically seen and examined this patient, have directed the physician assistants medical activities, and agree with the H&P as noted above with the following exceptions as noted. The patient is awake, alert and oriented 3, normocephalic and atraumatic, lying in bed and in no acute distress. HEENT--PERRL, EOMI, mucous membranes and oropharynx dry. Neck--supple, no JVD or bruits, thyroid normal, trachea midline, no adenopathy. Heart--normal S1 and S2, no extra beats, no murmurs, rubs or gallops. Lungs--clear bilaterally with good air movement, no respiratory distress, no accessory muscle use. Abdomen--normal bowel sounds and soft, nontender and nondistended, no hernias or masses, no organomegaly. Extremities/dermatologic--right lower extremity right second digit with mild erythema and edema that is nontender. Left foot with erythema and edema from base of toes to mid dorsum of foot that is tender to touch. Neurologic--cranial nerves II through XII grossly intact, motor and sensory examination normal. Rheumatologic--normal range of motion, nontender, muscles and joints. Psychiatric--normal affect. Assessment and Plan: 1. Left foot osteomyelitis--involving left third and fourth metatarsals. Right second finger osteomyelitis-- failure of outpatient therapy. Daptomycin 600 mg IV every 24 hours and levofloxacin 500 mg IV every 24 hours. Tramadol is due milligrams by mouth every 4 hours when necessary moderate pain Morphine sulfate 4 mg IV every 4 hours when necessary severe pain . Nothing by mouth after midnight for potential procedure in the a.m. Consult infectious disease, follows regularly with Dr. Mendoza. Consult orthopedics for possible bone biopsy. Order venous Doppler left lower extremity to rule out DVT. Level of Care Med/Surg Advanced Directives Existing Advance Directive: No Existing Living Will: No Existing Power of Credit Union Manager: No ( ) Resuscitation Status FULL RESUSCITATION VTE Prophylaxis VTE Risk Assessment Done? Y/N: Yes Risk Level: Moderate Given or contraindicated: Merari Owusu, SCD's
--- NOTE | 2017-07-11 18:49 | DIAGNOSTIC IMAGING REPORT ---
LEFT LOWER EXTREMITY VENOUS DOPPLER CLINICAL HISTORY: Left lower extremity swelling. COMPARISON STUDY: No previous studies for comparison. TECHNIQUE: Sonography of the deep venous system of the left lower extremity was performed. Compression and augmentation were evaluated. FINDINGS: There is no deep venous thrombus within the left common femoral, superficial femoral or popliteal veins. There is minimal age indeterminate thrombus within the left posterior tibial vein. No additional sites of deep venous thrombus are present. IMPRESSION: Minimal thrombus within the left posterior tibial vein. No additional sites of deep venous thrombus. This thrombus is age indeterminate although the appearance favors chronic deep venous thrombus. Electronically signed by: Beny Ruiz M.D. 07/11/2017 6:47 PM Dictated Date/Time: 07/11/2017 6:46 PM
[2017-07-11] MEDS ORDERED: POLYETHYLENE (MIRALAX) 17 GM PACK PO PRN (19:30)
[2017-07-11 20:02] VITALS: O2SAT 96
[2017-07-11 20:40] VITALS: BP 174/76; PULSE 77; TEMP 36.5; BMI 28.4
[2017-07-11] MEDS ORDERED: LEVOFLOXACIN / D5W 500 MG in PREMIXED IN D5W 100 ML IV SCH (21:00)
[2017-07-11] MEDS ORDERED: INSULIN ASPART 100 UNITS/ML 3 ML PEN SC SCH (21:00)
[2017-07-11] MEDS: INSULIN GLARGINE SC SCH (21:21)
[2017-07-11] MEDS ORDERED: DAPTOmycin IV 600 MG in SODIUM CHLORIDE 0.9% 50ML 50 ML IV SCH (22:00)
[2017-07-11 23:37] VITALS: BP 168/58; PULSE 82; TEMP 36.9; O2SAT 97
[2017-07-12] MEDS ORDERED: NURSING VERBAL MED ORDER ONE ×3 (01:00→17:45)
[2017-07-12] MEDS: LEVOTHYROXINE 137 MCG TAB PO SCH (05:52)
[2017-07-12] MEDS: INSULIN ASPART 100 UNITS/ML 3 ML PEN SC SCH ×3 (05:53→22:28)
[2017-07-12 07:57] VITALS: BP 172/74; PULSE 82; TEMP 37.1; O2SAT 96
--- NOTE | 2017-07-12 08:19 | Medical Consult ---
Consultation Date of Consultation: Jul 12, 2017. Attending Physician: Manuelito Armijo M.D. Reason for Consultation: Osteomyelitis History of Present Illness 76-year-old male well known to me from outpatient Infectious Disease follow-up, with history of gout and diabetes mellitus, who developed infection of his right 2nd finger as well as redness and swelling of his left foot, thought to be from gouty flare. Symptoms fail to improve, and patient ultimately had MRI scan which confirmed the presence of probable osteomyelitis of the finger. He was treated with a course of oral Zyvox, with improvement in his finger infection, however, patient developed worsening pain, redness, and swelling of his left foot, and MRI was obtained which revealed the presence of probable osteomyelitis. He was started on IV daptomycin and oral levofloxacin, but symptoms of worsening with increasing pain in the foot with increasing redness and swelling. As discussed, patient has been started empirically on daptomycin and Zosyn. Denies any significant fever or chills. Past Medical/Surgical History Medical Problems: (1) Cellulitis of left foot Status: Acute (2) Cellulitis of right hand Status: Acute (3) Failure of outpatient treatment Status: Acute (4) Hyperglycemia Status: Acute (5) Osteomyelitis Status: Acute Medical Problems: Diabetes mellitus, HTN HLD, gout, CKD, BPH Surgical Problems: (1) Post-operative state Family History Diabetes mellitus Heart disease Hypertension Social History Smoking Status: Former Smoker Smokeless Tobacco Use: No Alcohol Use: occasionally (rarely) Drug Use: none Marital Status: Housing Status: lives with family Occupation Status: retired Allergies Coded Allergies: No Known Allergies (Verified , 07/11/17) Current Inpatient Medications Current Inpatient Medications Medications (Trade) Dose Ordered Sig/Erik Route Start Time Stop Time Status Last Admin Dose Admin Acetaminophen (Tylenol Tab) 650 mg Q4H PRN PO 07/11/17 18:15 08/10/17 18:14 Al Hydrox/Mg Hydrox/Simethicone (Maalox Max Susp) 15 ml Q4H PRN PO 07/11/17 18:15 08/10/17 18:14 Magnesium Hydroxide (Milk Of Magnesia Susp) 30 ml Q6H PRN PO 07/11/17 18:15 08/10/17 18:14 Polyethylene (Miralax Powder Packet) 17 gm DAILY PRN PO 8/29/17 19:30 08/10/17 19:29 Ondansetron HCl (Zofran Inj) 4 mg Q6H PRN IV 07/11/17 18:15 08/10/17 18:14 Glucose (Glucose 40% Gel) 15-30 GRAMS 15 GRAMS... UD PRN PO 07/11/17 18:15 08/10/17 18:14 Glucose (Glucose Chew Tab) 4-8 Tablets 4 Tabl... UD PRN PO 07/11/17 18:15 08/10/17 18:14 Dextrose (Dextrose 50% 50ML Syringe) 25-50ML OF 50% DW IV FOR... UD PRN IV 07/11/17 18:15 08/10/17 18:14 Glucagon (Glucagon Inj) 1 mg UD PRN SQ 07/11/17 18:15 08/10/17 18:14 Allopurinol (Zyloprim Tab) 100 mg DAILY PO 07/12/17 09:00 08/11/17 08:59 Amlodipine Besylate (Norvasc Tab) 2.5 mg DAILY PO 07/12/17 09:00 08/11/17 08:59 Aspirin (Ecotrin Tab) 81 mg DAILY PO 07/12/17 09:00 08/11/17 08:59 Insulin Glargine (Lantus Vial) 10 units QAM SC 07/12/17 09:00 08/11/17 08:59 Insulin Glargine (Lantus Vial) 100 units HS SC 07/11/17 21:00 08/10/17 20:59 07/11/17 21:21 100 UNITS Levothyroxine Sodium (Synthroid Tab) 137 mcg DAILYBB PO 07/12/17 06:00 08/11/17 06:59 07/12/17 05:52 137 MCG Metoprolol Tartrate (Lopressor Tab) 50 mg QAM PO 07/12/17 09:00 08/11/17 08:59 Rosuvastatin Calcium (Crestor Tab) 40 mg DAILY PO 07/12/17 09:00 08/11/17 08:59 Senna (Senokot Tab) 8.6 mg DAILY PO 07/12/17 09:00 08/11/17 08:59 Tramadol HCl (Ultram Tab) 50 mg Q4H PRN PO 07/11/17 18:30 08/10/17 18:29 Morphine Sulfate (MoRPHine SULFATE INJ) 4 mg Q4H PRN IV 07/11/17 18:45 07/25/17 18:44 Daptomycin 600 mg/ Sodium Chloride 62 ml @ 100 mls/hr Q24H IV 07/12/17 09:00 08/23/17 08:59 Levofloxacin 500 mg/Prmx 100 ml @ 100 mls/hr Q24H IV 07/12/17 11:00 08/23/17 10:59 Insulin Aspart (novoLOG ASPART) SLIDING SCALE If C... Q6 SC 07/12/17 06:00 08/11/17 05:59 Heparin Sodium (Porcine) (Heparin 10 Unit/ ml 5 ml Flush) 5 ml PRN PRN FLUSH 07/12/17 08:15 08/11/17 08:14 Review of Systems All systems were reviewed and are negative except as per HPI Physical Exam Date Time Temp Pulse Resp B/P (MAP) Pulse Ox O2 Delivery O2 Flow Rate FiO2 07/12/17 07:57 37.1 82 20 172/74 (106) 96 Room Air 07/12/17 00:57 Room Air 07/11/17 23:37 36.9 82 16 168/58 (94) 97 Room Air 07/11/17 20:40 36.5 77 18 174/76 Room Air 07/11/17 20:02 76 153/67 96 07/11/17 18:58 76 20 164/72 97 Room Air 07/11/17 17:20 75 20 158/71 97 Room Air 07/11/17 15:49 37.1 72 18 162/66 96 Room Air General Appearance: WD/WN, no apparent distress Head: normocephalic, atraumatic Eyes: normal inspection, EOMI, sclerae normal ENT: normal ENT inspection, pharynx normal Neck: supple, no adenopathy, thyroid normal, trachea midline Respiratory/Chest: chest non-tender, lungs clear, normal breath sounds, no respiratory distress Cardiovascular: regular rate, rhythm, no gallop, no murmur Abdomen/GI: normal bowel sounds, non tender, soft, no organomegaly Back: normal inspection, no CVA tenderness Extremities/Musculoskelatal: no calf tenderness, + inflammation (left foot), + swelling (left foot), + pertinent finding (mild right 2nd finger swelling) Neurologic/Psych: alert, normal mood/affect, oriented x 3 Skin: normal color, warm/dry, no rash, + pertinent finding (left foot erythema) Lymphatic: no adenopathy Laboratory Results Date/Time Source Procedure Growth Status 07/11/17 17:25 Blood Blood Culture Pending Received 07/11/17 17:20 Blood Blood Culture Pending Received Last 24 Hours Test 07/11/17 17:20 07/11/17 19:40 07/11/17 20:40 07/12/17 04:44 White Blood Count 8.02 K/uL Red Blood Count 4.00 M/uL Hemoglobin 12.1 g/dL Hematocrit 36.4 % Mean Corpuscular Volume 91.0 fL Mean Corpuscular Hemoglobin 30.3 pg Mean Corpuscular Hemoglobin Concent 33.2 g/dl Platelet Count 196 K/uL Mean Platelet Volume 9.2 fL Neutrophils (%) (Auto) 54.0 % Lymphocytes (%) (Auto) 28.7 % Monocytes (%) (Auto) 13.2 % Eosinophils (%) (Auto) 3.7 % Basophils (%) (Auto) 0.2 % Neutrophils # (Auto) 4.32 K/uL Lymphocytes # (Auto) 2.30 K/uL Monocytes # (Auto) 1.06 K/uL Eosinophils # (Auto) 0.30 K/uL Basophils # (Auto) 0.02 K/uL RDW Standard Deviation 45.0 fL RDW Coefficient of Variation 13.5 % Immature Granulocyte % (Auto) 0.2 % Immature Granulocyte # (Auto) 0.02 K/uL Erythrocyte Sedimentation Rate 53 mm/hr Sodium Level 134 mmol/L Potassium Level 4.5 mmol/L Chloride Level 102 mmol/L Carbon Dioxide Level 25 mmol/L Anion Gap 7.0 mmol/L Blood Urea Nitrogen 40 mg/dl Creatinine 1.70 mg/dl Est Creatinine Clear Calc Drug Dose 48.6 ml/min Estimated GFR () 44.1 Estimated GFR (Non- 38.1 BUN/Creatinine Ratio 23.3 Random Glucose 354 mg/dl Calcium Level 9.1 mg/dl C-Reactive Protein 3.93 mg/dl Beta-Hydroxybutyric Acid 1.71 mg/dL Bedside Glucose 235 mg/dl 219 mg/dl Test 07/12/17 05:49 Bedside Glucose 94 mg/dl Patient Name: ROSE MARIEEVITA Cannon Unit Number: [id number] Dictated: 07/11/171845 Transcribed: 07/11/171845 JA Printed Date/Time: [~ rep prt dt]/[~ rep prt tm] [~ rep ct labl] - [~ rep ct ivnm] [facility] [place] [address] Dictated: 07/11/171845 Transcribed: 07/11/171845 JA Printed Date/Time: [~ rep prt dt]/[~ rep prt tm] [~ rep ct labl] - [~ rep ct ivnm] [~ rep ct add3]] LEFT LOWER EXTREMITY VENOUS DOPPLER CLINICAL HISTORY: Left lower extremity swelling. COMPARISON STUDY: No previous studies for comparison. TECHNIQUE: Sonography of the deep venous system of the left lower extremity was performed. Compression and augmentation were evaluated. FINDINGS: There is no deep venous thrombus within the left common femoral, superficial femoral or popliteal veins. There is minimal age indeterminate thrombus within the left posterior tibial vein. No additional sites of deep venous thrombus are present. IMPRESSION: Minimal thrombus within the left posterior tibial vein. No additional sites of deep venous thrombus. This thrombus is age indeterminate although the appearance favors chronic deep venous thrombus. Electronically signed by: Beny Ruiz M.D. 07/11/2017 6:47 PM Dictated Date/Time: 07/11/2017 6:46 PM The status of this report is Signed. Draft = Not yet reviewed or approved by Radiologist. Signed = Reviewed and approved by Radiologist. <AttendingPhy></AttendingPhy> <FamilyPhy>Navi Padilla M.D.</FamilyPhy> < PrimaryPhy>Navi Padilla M.D.</PrimaryPhy> <UnitNumber>[id number]</UnitNumber > <VisitNumber>[id number]</VisitNumber> <PatientName>ROSE MARIEEVITA Kassandra</ PatientName> <DateOfBirth>1940</DateOfBirth> <Location>C[facility]EDB</Location> < ServiceDate>07/11/17</ServiceDate> <MNE>ESINDI</MNE> <OrderingPhy>Clyde Yoon M.D.</OrderingPhy> <OrderingPhyMNE>f rep ord dr lopez</OrderingPhyMNE> < DictatingPhyMNE>f rep dict dr lopez</DictatingPhyMNE> <CCListMNE>f rep ct john</ CCListMNE> <AdmittingPhyMNE>f pt admit dr lopez</AdmittingPhyMNE> <AttendingPhyMNE >f pt attend dr lopez</AttendingPhyMNE> <ConsultingPhyMNE>f pt consult dr lopez</ConsultingPhyMNE> <FamilyPhyMNE>f pt fam dr lopez</FamilyPhyMNE> <OtherPhyMNE>f pt other dr lopez</OtherPhyMNE> < PrimaryPhyMNE>f pt prim care dr lopez</PrimaryPhyMNE> <ReferringPhyMNE>f pt referring dr lopez</ReferringPhyMNE> Assessment & Plan 76 yo diabetic male with osteomyelitis of left foot as well as right 2nd finger. Has failed outpatient therapy, and so have admitted for more aggressive IV antibiotics. Will continue daptomycin, change levofloxacin to Zosyn pending cultures. Agree with orthopedic consultation. Will follow.
[2017-07-12] MEDS: INSULIN GLARGINE SC SCH ×2 (09:00→22:28)
[2017-07-12 09:01] LABS: HEMATOCRIT 37.7 % (42-52); MEAN CELL VOLUME 91.1 fL (80-100); MEAN CORPUSCULAR HGB CONC 32.9 g/dl (32-36); MEAN PLATELET VOLUME 9.2 fL (7.4-10.4); PLATELET COUNT 211 K/uL (130-400); RED BLOOD COUNT 4.14 M/uL (4.7-6.1); WHITE BLOOD COUNT 10.37 K/uL (4.8-10.8)
[2017-07-12 09:19] LABS: CALCIUM 9.4 mg/dl (8.5-10.1); CREATININE 1.5 mg/dl (0.60-1.40); POTASSIUM 3.9 mmol/L (3.5-5.1)
[2017-07-12] MEDS: ASPIRIN 81 MG ECTAB PO SCH (09:30)
[2017-07-12] MEDS: DAPTOmycin IV 600 MG in SODIUM CHLORIDE 0.9% 50ML 50 ML IV SCH (09:30)
[2017-07-12] MEDS: AMLODIPINE BESYLATE 5 MG TAB PO SCH (09:31)
[2017-07-12] MEDS: ALLOPURINOL 100 MG TAB PO SCH (09:31)
[2017-07-12] MEDS: METOPROLOL TARTRATE 50 MG TAB PO SCH (09:32)
[2017-07-12] MEDS: ROSUVASTATIN CALCIUM 20 MG TAB PO SCH (09:32)
[2017-07-12] MEDS: SENNA 8.6 MG TAB PO SCH (09:33)
[2017-07-12] MEDS ORDERED: PIPERACILL/TAZOBAC CONSULT ACTIVE PRN (10:15)
[2017-07-12] MEDS ORDERED: PIPERACILL/TAZOBAC IV 3.375 GM in DEXTROSE 5% 100ML 100 ML IV ONE (10:30)
[2017-07-12] MEDS ORDERED: LEVOFLOXACIN / D5W 500 MG in PREMIXED IN D5W 100 ML IV SCH (11:00)
[2017-07-12] MEDS ORDERED: DEXTROSE 50% 50 ML SYR IV STA (12:08)
--- NOTE | 2017-07-12 13:41 | Progress Note ---
Subjective Date of Service: Jul 12, 2017. Subjective Pt evaluation today including: conversation w/ patient, physical exam, chart review, lab review, review of studies, review of inpatient medication list Resting comfortably in bed Denies any fevers or worsening pain NPO at this time No acute events overnight Problem List Medical Problems: (1) Cellulitis of left foot Status: Acute (2) Cellulitis of right hand Status: Acute (3) Failure of outpatient treatment Status: Acute (4) Hyperglycemia Status: Acute (5) Osteomyelitis Status: Acute Review of Systems Constitutional: No fever, No chills, No sweats, No weakness Eyes: No worsening of vision, No eye pain, No redness, No discharge ENT: No hearing loss, No unusual epistaxis, No nasal symptoms, No sore throat Respiratory: No cough, No sputum, No wheezing, No shortness of breath Cardiac: No chest pain, No orthopnea, No PND, No edema, No claudication Abdomen: No pain, No nausea, No vomiting, No diarrhea, No constipation Musculoskeletal: No joint pain, No muscle pain, No swelling, No calf pain Male : No dysuria, No urinary frequency, No incontinence, No slowing stream Neurologic: No memory loss, No paralysis, No weakness, No numbness/tingling Psychiatric: No depression symptoms, No anhedonism, No anxiety, No insomnia Endo: No fatigue, No excessive thirst Skin: No rash, No itch Objective Vital Signs Date Time Temp Pulse Resp B/P (MAP) Pulse Ox O2 Delivery O2 Flow Rate FiO2 07/12/17 07:57 37.1 82 20 172/74 (106) 96 Room Air 07/12/17 00:57 Room Air 07/11/17 23:37 36.9 82 16 168/58 (94) 97 Room Air 07/11/17 20:40 36.5 77 18 174/76 Room Air 07/11/17 20:02 76 153/67 96 07/11/17 18:58 76 20 164/72 97 Room Air 07/11/17 17:20 75 20 158/71 97 Room Air 07/11/17 15:49 37.1 72 18 162/66 96 Room Air Physical Exam General Appearance: WD/WN, no apparent distress Neck: supple, no adenopathy, thyroid normal, no JVD Respiratory/Chest: chest non-tender, lungs clear, normal breath sounds, no respiratory distress Cardiovascular: regular rate, rhythm, no edema, no gallop, no JVD Abdomen: normal bowel sounds, non tender, soft, no organomegaly Extremities: non-tender, normal inspection, no pedal edema, no calf tenderness Neurologic/Psychiatric: no motor/sensory deficits, alert, normal mood/affect, oriented x 3 Laboratory Results Last 24 Hours Test 07/11/17 17:20 07/11/17 19:40 07/11/17 20:40 07/12/17 05:49 White Blood Count 8.02 K/uL Red Blood Count 4.00 M/uL Hemoglobin 12.1 g/dL Hematocrit 36.4 % Mean Corpuscular Volume 91.0 fL Mean Corpuscular Hemoglobin 30.3 pg Mean Corpuscular Hemoglobin Concent 33.2 g/dl Platelet Count 196 K/uL Mean Platelet Volume 9.2 fL Neutrophils (%) (Auto) 54.0 % Lymphocytes (%) (Auto) 28.7 % Monocytes (%) (Auto) 13.2 % Eosinophils (%) (Auto) 3.7 % Basophils (%) (Auto) 0.2 % Neutrophils # (Auto) 4.32 K/uL Lymphocytes # (Auto) 2.30 K/uL Monocytes # (Auto) 1.06 K/uL Eosinophils # (Auto) 0.30 K/uL Basophils # (Auto) 0.02 K/uL RDW Standard Deviation 45.0 fL RDW Coefficient of Variation 13.5 % Immature Granulocyte % (Auto) 0.2 % Immature Granulocyte # (Auto) 0.02 K/uL Erythrocyte Sedimentation Rate 53 mm/hr Sodium Level 134 mmol/L Potassium Level 4.5 mmol/L Chloride Level 102 mmol/L Carbon Dioxide Level 25 mmol/L Anion Gap 7.0 mmol/L Blood Urea Nitrogen 40 mg/dl Creatinine 1.70 mg/dl Est Creatinine Clear Calc Drug Dose 48.6 ml/min Estimated GFR () 44.1 Estimated GFR (Non- 38.1 BUN/Creatinine Ratio 23.3 Random Glucose 354 mg/dl Calcium Level 9.1 mg/dl C-Reactive Protein 3.93 mg/dl Beta-Hydroxybutyric Acid 1.71 mg/dL Bedside Glucose 235 mg/dl 219 mg/dl 94 mg/dl Test 07/12/17 08:34 White Blood Count 10.37 K/uL Red Blood Count 4.14 M/uL Hemoglobin 12.4 g/dL Hematocrit 37.7 % Mean Corpuscular Volume 91.1 fL Mean Corpuscular Hemoglobin 30.0 pg Mean Corpuscular Hemoglobin Concent 32.9 g/dl RDW Standard Deviation 44.6 fL RDW Coefficient of Variation 13.4 % Platelet Count 211 K/uL Mean Platelet Volume 9.2 fL Nucleated RBC Absolute Count (auto) 0.02 K/uL Nucleated Red Blood Cells % 0.2 % Sodium Level 140 mmol/L Potassium Level 3.9 mmol/L Chloride Level 108 mmol/L Carbon Dioxide Level 25 mmol/L Anion Gap 7.0 mmol/L Blood Urea Nitrogen 30 mg/dl Creatinine 1.50 mg/dl Est Creatinine Clear Calc Drug Dose 55.1 ml/min Estimated GFR () 51.3 Estimated GFR (Non- 44.3 BUN/Creatinine Ratio 20.0 Random Glucose 79 mg/dl Calcium Level 9.4 mg/dl Assessment and Plan 76 y/o male with a history of DM II, HTN, HLD, CAD, CKD stage III, hypothyroidism, BPH, and gout who presented to the ED on 07/11 with increasing pain and swelling in the left foot. Pt sent by Dr. Mendoza for further evaluation. Pt afebrile, VSS. ESR and CRP elevated at 53 and 3.93, respectively. No leukocytosis. Renal function about baseline. Random glucose elevated at 354, beta hydroxybutyric acid WNL. Pt received 10 units Novolin in ED. Osteomyelitis left foot, failed outpatient therapy -Admit to med/surg -Consult infectious disease, appreciate recs. Pt follows with Dr. Mendoza -Consult orthopedics, appreciate recs, NPO at this time -Cont daptomycin 600 mg IV q24h and switch Levaquin 500 mg IV q24h to zosyn IV -Blood cultures pending -Doppler ultrasound LLE age indeterminate post tibial thrombus noted -Continue home tramadol 40 mg PO q4h prn pain -Morphine 4 mg IV q4h prn pain -Reviewed previous MRIs. Osteomyelitis in left 4th metatarsal and likely 3rd metatarsal. Possible early osteomyelitis in 2nd metatarsal. Osteomyelitis in right second finger. DM II--last HgbA1c checked 06/20/17 was 11.0 -Hold lantus due to hypoglycemia, ISS -Check BSGs q ac and qhs HTN--stable -Continue Norvasc 2.5 mg PO qd and Lopressor 50 mg PO qd HLD, CAD--stable -Continue Crestor 40 mg PO qd and ASA 81 mg PO qd CKD stage III--baseline creatinine around 1.8 -Creatinine stable, at baseline Hypothyroidism -Continue Synthroid 137 mcg PO qd Gout -Continue allopurinol 100 mg PO qd DVT prophylaxis -Hold chemical prophylaxis for now in case surgical intervention is needed -TEDs and SCDs Code Status -Level I, FULL RESUSCITATION STATUS
[2017-07-12 15:57] VITALS: BP 170/64; PULSE 64; TEMP 36.4; O2SAT 91
[2017-07-12] MEDS: PIPERACILL/TAZOBAC IV 3.375 GM in DEXTROSE 5% 100ML 100 ML IV SCH ×2 (16:17→23:29)
--- NOTE | 2017-07-12 16:19 | CONSULTATION REPORT ---
DATE OF CONSULTATION: 07/12/2017 HISTORY OF PRESENT ILLNESS: The patient is a very pleasant 76-year-old white male who presents with a painful left foot. He has been on intravenous antibiotics and being treated by Dr. Mendoza for osteomyelitis of his left foot metatarsal, had an MRI scan about a week prior, presents with inability to weightbear without pain due to such. On inspection, it was clear that he has some very mild redness in the dorsal aspect of the second and third metatarsal area, no discoloration or any type wound on the plantar surface. Plantar surface is pain free to touch, some mild pain dorsally over the second metatarsal head. I discussed the situation regarding possible bone biopsy, will discuss the case with Dr. De La Fuente for definitive management potential for bone biopsy on Monday. ASSESSMENT AND PLAN: Metatarsal pain with osteomyelitis. As noted, plan for potential biopsy pending further discussion with Dr. De La Fuente.
[2017-07-12] MEDS ORDERED: INSULIN ASPART 100 UNITS/ML 3 ML PEN SC SCH (18:45)
[2017-07-12] MEDS: MoRPHine SULFATE 4 MG/ML 1 ML CARP\\VIAL IV PRN (22:34)
[2017-07-12 22:55] VITALS: BP 182/70; PULSE 77; TEMP 37.1; O2SAT 96
[2017-07-12 23:57] VITALS: BP 168/70
[2017-07-13] MEDS: MoRPHine SULFATE 4 MG/ML 1 ML CARP\\VIAL IV PRN ×2 (04:06→13:58)
[2017-07-13] MEDS: LEVOTHYROXINE 137 MCG TAB PO SCH (05:19)
[2017-07-13 05:31] LABS: HEMATOCRIT 34.4 % (42-52); MEAN CELL VOLUME 88.9 fL (80-100); MEAN CORPUSCULAR HEMOGLOBIN 29.7 pg (25-34); MEAN CORPUSCULAR HGB CONC 33.4 g/dl (32-36); PLATELET COUNT 199 K/uL (130-400); RED BLOOD COUNT 3.87 M/uL (4.7-6.1); WHITE BLOOD COUNT 10.35 K/uL (4.8-10.8)
[2017-07-13 06:12] LABS: BUN/CREATININE RATIO 16.6 (10-20); CREATININE 1.5 mg/dl (0.60-1.40); POTASSIUM 3.5 mmol/L (3.5-5.1)
[2017-07-13 06:20] LABS: CALCIUM 8.4 mg/dl (8.5-10.1)
[2017-07-13 07:10] VITALS: BP 159/56; PULSE 91; TEMP 37; O2SAT 95
[2017-07-13] MEDS: DAPTOmycin IV 600 MG in SODIUM CHLORIDE 0.9% 50ML 50 ML IV SCH (09:20)
[2017-07-13] MEDS: PIPERACILL/TAZOBAC IV 3.375 GM in DEXTROSE 5% 100ML 100 ML IV SCH ×3 (09:20→23:44)
[2017-07-13] MEDS: SENNA 8.6 MG TAB PO SCH (09:21)
[2017-07-13] MEDS: ASPIRIN 81 MG ECTAB PO SCH (09:21)
[2017-07-13] MEDS: AMLODIPINE BESYLATE 5 MG TAB PO SCH (09:21)
[2017-07-13] MEDS: ROSUVASTATIN CALCIUM 20 MG TAB PO SCH (09:22)
[2017-07-13] MEDS: METOPROLOL TARTRATE 50 MG TAB PO SCH (09:22)
[2017-07-13] MEDS: ALLOPURINOL 100 MG TAB PO SCH (09:22)
[2017-07-13] MEDS: INSULIN ASPART 100 UNITS/ML 3 ML PEN SC SCH ×5 (09:30→23:44)
[2017-07-13] MEDS: INSULIN GLARGINE SC SCH (09:31)
[2017-07-13] MEDS ORDERED: PHARMACY GLYCEMIC MGMT CONSULT PRN (10:53)
[2017-07-13] MEDS: TRAMADOL HCL 50 MG TAB PO PRN (11:02)
--- NOTE | 2017-07-13 12:02 | Progress Note ---
Subjective Date of Service: Jul 13, 2017. Subjective Pt evaluation today including: conversation w/ patient, physical exam, chart review, lab review, review of studies, review of inpatient medication list Problem List Medical Problems: (1) Cellulitis of left foot Status: Acute (2) Cellulitis of right hand Status: Acute (3) Failure of outpatient treatment Status: Acute (4) Hyperglycemia Status: Acute (5) Osteomyelitis Status: Acute Review of Systems Constitutional: No fever, No sweats, No weakness Eyes: No worsening of vision, No eye pain, No redness, No discharge Respiratory: No cough, No sputum, No wheezing, No shortness of breath, No dyspnea on exertion Cardiac: No chest pain, No orthopnea, No PND, No edema, No claudication Abdomen: No pain, No nausea, No vomiting, No diarrhea, No constipation Musculoskeletal: No joint pain, No muscle pain, No swelling Male : No dysuria, No incontinence Neurologic: No memory loss, No paralysis, No weakness, No numbness/tingling Psychiatric: No depression symptoms, No anhedonism, No anxiety, No insomnia Endo: No fatigue, No excessive thirst Skin: No rash, No itch Objective Vital Signs Date Time Temp Pulse Resp B/P (MAP) Pulse Ox O2 Delivery O2 Flow Rate FiO2 07/13/17 07:10 37.0 91 18 159/56 (90) 95 Room Air 07/12/17 23:57 168/70 (102) 07/12/17 23:26 Room Air 07/12/17 22:55 37.1 77 18 182/70 (107) 96 Room Air 07/12/17 15:57 36.4 64 18 170/64 (99) 91 Room Air 07/12/17 15:45 Room Air Physical Exam General Appearance: WD/WN, no apparent distress Neck: supple, no adenopathy, thyroid normal Respiratory/Chest: chest non-tender, lungs clear, normal breath sounds, no respiratory distress Cardiovascular: regular rate, rhythm, no edema, no gallop, no JVD Abdomen: normal bowel sounds, non tender, soft, no organomegaly Extremities: non-tender, normal inspection, no pedal edema Neurologic/Psychiatric: no motor/sensory deficits, alert, normal mood/affect, oriented x 3 Laboratory Results Last 24 Hours Test 07/12/17 12:39 07/12/17 16:55 07/12/17 20:41 07/13/17 05:15 Bedside Glucose 143 mg/dl 213 mg/dl 330 mg/dl White Blood Count 10.35 K/uL Red Blood Count 3.87 M/uL Hemoglobin 11.5 g/dL Hematocrit 34.4 % Mean Corpuscular Volume 88.9 fL Mean Corpuscular Hemoglobin 29.7 pg Mean Corpuscular Hemoglobin Concent 33.4 g/dl RDW Standard Deviation 43.2 fL RDW Coefficient of Variation 13.3 % Platelet Count 199 K/uL Mean Platelet Volume 9.0 fL Sodium Level 141 mmol/L Potassium Level 3.5 mmol/L Chloride Level 108 mmol/L Carbon Dioxide Level 27 mmol/L Anion Gap 6.0 mmol/L Blood Urea Nitrogen 25 mg/dl Creatinine 1.50 mg/dl Est Creatinine Clear Calc Drug Dose 55.1 ml/min Estimated GFR () 51.3 Estimated GFR (Non- 44.3 BUN/Creatinine Ratio 16.6 Random Glucose 58 mg/dl Calcium Level 8.4 mg/dl Test 07/13/17 05:16 07/13/17 05:50 07/13/17 06:10 07/13/17 08:23 Bedside Glucose 56 mg/dl 67 mg/dl 85 mg/dl 196 mg/dl Test 07/13/17 10:49 Bedside Glucose 311 mg/dl Assessment and Plan 76 y/o male with a history of DM II, HTN, HLD, CAD, CKD stage III, hypothyroidism, BPH, and gout who presented to the ED on 07/11 with increasing pain and swelling in the left foot. Pt sent by Dr. Mendoza for further evaluation. Pt afebrile, VSS. ESR and CRP elevated at 53 and 3.93, respectively. No leukocytosis. Renal function about baseline. Random glucose elevated at 354, beta hydroxybutyric acid WNL. Pt received 10 units Novolin in ED. Osteomyelitis left foot, failed outpatient therapy -Admit to med/surg -Consult infectious disease, appreciate recs. Pt follows with Dr. Mendoza -Consult orthopedics, appreciate recs, likely bone bx for this saturday 07/14 -Cont daptomycin 600 mg IV q24h and switch Levaquin 500 mg IV q24h to zosyn IV -Blood cultures NGTD -Doppler ultrasound LLE age indeterminate post tibial thrombus noted -Continue home tramadol 40 mg PO q4h prn pain -Morphine 4 mg IV q4h prn pain -Reviewed previous MRIs. Osteomyelitis in left 4th metatarsal and likely 3rd metatarsal. Possible early osteomyelitis in 2nd metatarsal. Osteomyelitis in right second finger. DM II--last HgbA1c checked 06/20/17 was 11.0 -Hacing episodes of hyperglycemia and hypoglycemia, glycemic control consult in place HTN--stable -Continue Norvasc 2.5 mg PO qd and Lopressor 50 mg PO qd HLD, CAD--stable -Continue Crestor 40 mg PO qd and ASA 81 mg PO qd CKD stage III--baseline creatinine around 1.8 -Creatinine stable, at baseline Hypothyroidism -Continue Synthroid 137 mcg PO qd Gout -Continue allopurinol 100 mg PO qd DVT prophylaxis -Hold chemical prophylaxis for now in case surgical intervention is needed -TEDs and SCDs Code Status -Level I, FULL RESUSCITATION STATUS
--- NOTE | 2017-07-13 13:22 | Orthopedic Progress Note ---
Orthopedic Progress Note Date of Service Jul 13, 2017. Subjective Additional Notes: Pt sitting up in bed. States he's having more painful toes today than yesterday. Objective calves soft nontender, A&O x3 Foot examined. Toes with increased erythema. Tender on palpation. No overt dorsal/plantar pain of the midfoot or ankle. Date Time Temp Pulse Resp B/P (MAP) Pulse Ox O2 Delivery O2 Flow Rate FiO2 07/13/17 09:00 Room Air 07/13/17 07:10 37.0 91 18 159/56 (90) 95 Room Air 07/12/17 23:57 168/70 (102) 07/12/17 23:26 Room Air 07/12/17 22:55 37.1 77 18 182/70 (107) 96 Room Air 07/12/17 15:57 36.4 64 18 170/64 (99) 91 Room Air 07/12/17 15:45 Room Air Laboratory Results 24 Hours: Test 07/13/17 05:15 Hematocrit 34.4 % Hemoglobin 11.5 g/dL Assessment & Plan Assessment: Increasing pain in the toes today. Patient seen with Dr Delacruz. . Plan: Pt with h/o gout. Question need for addition of NSAID to regimen per Dr Delacruz MRI reviewed by Dr De La Fuente who felt the results may not indicate surgery, but rather 6 weeks of IV antibx He will see the patient later today to discuss with patient.
[2017-07-13 13:24] VITALS: Ht 193 cm; Wt 106.0 kg
[2017-07-13] MEDS ORDERED: INSULIN REGULAR 5 UNITS in SYRINGE 4.95 ML IV ONE (14:00)
--- NOTE | 2017-07-13 14:03 | Pharmacy Progress Note ---
Glycemic Control Intl Consult Date of Service Jul 13, 2017. Scope Glycemic Pharmacist consulted by Dr Juarez on 07/13/17 for glycemic control and to write orders per [facility] inpatient glycemic control protocol Objective Weight (Kilograms): 106.000 Accuchecks BSG (last 24hrs): Test 07/12/17 16:55 07/12/17 20:41 07/13/17 05:15 07/13/17 05:16 Bedside Glucose 213 mg/dl (70-99) 330 mg/dl (70-99) 56 mg/dl (70-99) Random Glucose 58 mg/dl (70-99) Test 07/13/17 05:50 07/13/17 06:10 07/13/17 08:23 07/13/17 10:49 Bedside Glucose 67 mg/dl (70-99) 85 mg/dl (70-99) 196 mg/dl (70-99) 311 mg/dl (70-99) Laboratory Data (last 24hrs) Test 07/13/17 05:15 Anion Gap 6.0 mmol/L BUN/Creatinine Ratio 16.6 Blood Urea Nitrogen 25 mg/dl Creatinine 1.50 mg/dl Potassium Level 3.5 mmol/L Sodium Level 141 mmol/L White Blood Count 10.35 K/uL Recent Pertinent Medications Outpatient Anti-diabetic Regimen: * Lantus 10 units qam and 100 units qpm + Novolog 10-20 units with meals * A1c = 11 % 06/20/17 The patient is currently receiving: * Basal insulin: Lantus 10 units qAM and 100 units qPM * Correctional Insulin: Novolog Correction per scale ACHS Goal Range: Low 140 mg/dL - High 180 mg/dL Correction Factor: 30 mg/dL/unit * Prandial insulin: Per carb ratio of 1 unit per 9 grams CHO consumed Risk Factors for Insulin Resistance: * Infection: daptomycin and zosyn for left foot osteo * Diet: T2DM, AHA Assessment & Plan ASSESSMENT: * 76 yr old T2DM male admitted with left foot osteomyelitis receiving broad spectrum antibiotics. * Patient is on large doses of insulin at home, 140-170 units per day, which is highly basal weighted (110 units basal). Per conversation with CDE, the pt reports rarely missing doses and frequent morning hypoglycemia. This is consistent with hospital stay as well; BSG of 56 and 67 mg/dL this am. BSGs become severely elevated during the day due to lack of prandial insulin. * Will continue basal/bolus regimen and re-distribute to 50% basal/50% bolus. Will start with weight/stress of 2 and titrate as needed. * ADA & AACE recommend a goal blood sugar range 140-180 mg/dl for the majority of critically ill & non-critically ill patients. However, more stringent targets may be selected in individual cases. Will continue this goal range for now due to recent hypoglycemia, A1c of 11%, and unknown insulin needs. PLAN FOR INPATIENT GLYCEMIC CONTROL: * Regular insulin 5 units IV x 1 dose for BSG > 300 mg/dL * LANTUS 20 units SQ BID - decreased to re-distribute regimen * Correctional Insulin with NOVOLOG per scale ACHS - tighten * Goal Range: Low 140 mg/dL - High 180 mg/dL * Correction Factor: 20 mg/dL/unit * Nutritional / Prandial insulin per carb ratio of 1 unit per 7 grams CHO consumed * Add overnight checks with coverage @ 00 and 04 since basal dose was significantly decreased and exact needs are unknown * Please note that the plan above was derived based on current level of insulin resistance and hospital stress. These recommendations are appropriate for inpatient admission only. Plan of care upon discharge will need to be reassessed to avoid potential outpatient hypo/hyperglycemia. Thank you.
[2017-07-13 15:40] VITALS: BP 143/61; PULSE 75; TEMP 37; O2SAT 94
[2017-07-13] MEDS ORDERED: INSULIN ASPART 100 UNITS/ML 3 ML PEN SC SCH (18:45)
[2017-07-13] MEDS ORDERED: INSULIN GLARGINE SOLOSTAR 100 UNITS/ML 3 ML PEN SC SCH (21:00)
[2017-07-13] MEDS: NAPROXEN 250 MG TAB PO SCH (21:44)
[2017-07-13] MEDS: INSULIN GLARGINE SOLOSTAR 100 UNITS/ML 3 ML PEN SC SCH (22:01)
[2017-07-13 23:10] VITALS: BP 115/61; PULSE 81; TEMP 38; O2SAT 97
[2017-07-13 23:20] VITALS: TEMP 37
[2017-07-14] MEDS: INSULIN ASPART 100 UNITS/ML 3 ML PEN SC SCH ×5 (03:47→21:26)
[2017-07-14] MEDS: NAPROXEN 250 MG TAB PO SCH ×2 (05:14→14:09)
[2017-07-14] MEDS: LEVOTHYROXINE 137 MCG TAB PO SCH (05:14)
[2017-07-14 05:57] LABS: HEMATOCRIT 35.8 % (42-52); MEAN CELL VOLUME 90.6 fL (80-100); MEAN CORPUSCULAR HEMOGLOBIN 28.9 pg (25-34); MEAN CORPUSCULAR HGB CONC 31.8 g/dl (32-36); MEAN PLATELET VOLUME 9.3 fL (7.4-10.4); PLATELET COUNT 239 K/uL (130-400); RED BLOOD COUNT 3.95 M/uL (4.7-6.1); WHITE BLOOD COUNT 8.32 K/uL (4.8-10.8)
[2017-07-14 06:40] LABS: BUN/CREATININE RATIO 15.9 (10-20); CALCIUM 9.1 mg/dl (8.5-10.1); CREATININE 1.7 mg/dl (0.60-1.40); POTASSIUM 3.8 mmol/L (3.5-5.1)
[2017-07-14 06:54] VITALS: BP 171/71; PULSE 77; TEMP 37.3; O2SAT 94
[2017-07-14] MEDS: PIPERACILL/TAZOBAC IV 3.375 GM in DEXTROSE 5% 100ML 100 ML IV SCH ×3 (10:33→23:47)
[2017-07-14] MEDS: DAPTOmycin IV 600 MG in SODIUM CHLORIDE 0.9% 50ML 50 ML IV SCH (10:34)
[2017-07-14] MEDS: ALLOPURINOL 100 MG TAB PO SCH (10:34)
[2017-07-14] MEDS: METOPROLOL TARTRATE 50 MG TAB PO SCH ×2 (10:34→18:06)
[2017-07-14] MEDS: AMLODIPINE BESYLATE 5 MG TAB PO SCH ×2 (10:34→21:20)
[2017-07-14] MEDS: SENNA 8.6 MG TAB PO SCH (10:35)
[2017-07-14] MEDS: ROSUVASTATIN CALCIUM 20 MG TAB PO SCH (10:35)
[2017-07-14] MEDS: ASPIRIN 81 MG ECTAB PO SCH (10:35)
[2017-07-14] MEDS: INSULIN GLARGINE SOLOSTAR 100 UNITS/ML 3 ML PEN SC SCH ×2 (10:39→21:26)
--- NOTE | 2017-07-14 13:09 | Orthopedic Progress Note ---
Orthopedic Progress Note Date of Service Jul 14, 2017. Subjective Denies: chest pain, SOB, nausea / vomiting, light headedness, calf pain Additional Notes: Diminished pain left foot. Decreased swelling left foot. Continued pain left 2/ 3 toes. No fevers or chills. Objective calves soft nontender, N/V intact, capillary refill less than 2 sec., A&O x3, toes mobile Decreasing left foot pain with palpation. Decreased swelling left foot. Increasing skin wrinkles noted. DP/PT 2/4 B LE. No fluctuance. No ulcers, open wounds or rashes.No proximal streaking or erythema left foot/ankle. 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 . Plan: Continue NSAID Continue IV anbx and consider change to PO anbx for 2 weeks Limited WB L LE Alternating heat and cold L foot Called to D/W Dr Kelly graybx plan Nonoperative mgmt at this time
[2017-07-14 15:16] VITALS: BP 179/88; PULSE 74; TEMP 36.6; O2SAT 95
[2017-07-14] MEDS ORDERED: COLCHICINE 0.6 MG TAB PO ONE (17:15)
[2017-07-14 19:58] VITALS: BP 166/70
--- NOTE | 2017-07-14 20:18 | Progress Note ---
Subjective Date of Service: Jul 14, 2017. Subjective Pt evaluation today including: conversation w/ patient, physical exam, chart review, lab review, review of studies (MRI left foot; left LE doppler (venous)) , review of inpatient medication list Pain: left foot - ongoing, but mildly improved today PO Intake: normal Voiding: no voiding problems no issues overnight Tm 38 degrees denies feeling poorly, however has not done much in the way of activity today - essentially in the bed Problem List Medical Problems: (1) Cellulitis of left foot Status: Acute (2) Cellulitis of right hand Status: Acute (3) Failure of outpatient treatment Status: Acute (4) Hyperglycemia Status: Acute (5) Osteomyelitis Status: Acute Review of Systems Constitutional: + fever, No chills Respiratory: No shortness of breath, No dyspnea on exertion Cardiac: No chest pain Abdomen: No pain, No diarrhea Objective Vital Signs Date Time Temp Pulse Resp B/P (MAP) Pulse Ox O2 Delivery O2 Flow Rate FiO2 07/14/17 19:58 166/70 (102) 07/14/17 15:16 36.6 74 14 179/88 (118) 95 Room Air 07/14/17 15:10 Room Air 07/14/17 08:30 Room Air 07/14/17 06:54 37.3 77 17 171/71 (104) 94 Room Air 07/13/17 23:38 Room Air 07/13/17 23:20 37.0 07/13/17 23:10 38.0 81 18 115/61 (79) 97 Room Air Physical Exam General Appearance: no apparent distress ENT: pharynx normal Neck: no JVD Respiratory/Chest: lungs clear, no respiratory distress, no accessory muscle use Cardiovascular: regular rate, rhythm, no gallop, no JVD, no murmur Abdomen: normal bowel sounds, non tender, soft, no organomegaly Extremities: no pedal edema, + pertinent finding (he has mild amount of tenderness over the dorsum of the left foot over multiple metatarsals) Neurologic/Psychiatric: alert, oriented x 3 Skin: + pertinent finding (minimal amount of erythema over the 2nd finger, right hand, PIP joint along with synovitis ) Laboratory Results Last 24 Hours Test 07/13/17 20:36 07/13/17 23:41 07/14/17 03:45 07/14/17 05:15 Bedside Glucose 137 mg/dl 90 mg/dl 141 mg/dl White Blood Count 8.32 K/uL Red Blood Count 3.95 M/uL Hemoglobin 11.4 g/dL Hematocrit 35.8 % Mean Corpuscular Volume 90.6 fL Mean Corpuscular Hemoglobin 28.9 pg Mean Corpuscular Hemoglobin Concent 31.8 g/dl RDW Standard Deviation 44.7 fL RDW Coefficient of Variation 13.5 % Platelet Count 239 K/uL Mean Platelet Volume 9.3 fL Sodium Level 138 mmol/L Potassium Level 3.8 mmol/L Chloride Level 104 mmol/L Carbon Dioxide Level 25 mmol/L Anion Gap 9.0 mmol/L Blood Urea Nitrogen 27 mg/dl Creatinine 1.70 mg/dl Est Creatinine Clear Calc Drug Dose 48.6 ml/min Estimated GFR () 44.1 Estimated GFR (Non- 38.1 BUN/Creatinine Ratio 15.9 Random Glucose 133 mg/dl Calcium Level 9.1 mg/dl Test 07/14/17 08:00 07/14/17 12:01 Bedside Glucose 97 mg/dl 168 mg/dl Assessment and Plan 76yo male: 1. left foot pain - infectious vs gouty midfoot arthritis vs noninfectious ( Charcot foot?). Despite numerous courses of outpatient abx he has had no response to treatment. He continues with pain. Started empirically on NSAIDs last 1-2 days for possible gout with improved swelling. Seen by ortho - no plans for surgical exploration, bx, etc at this time. He will continue on abx, however. Will change naprosyn to indocin for 2 more days. Colchicine 0.6mg daily. Cont allopurinol. Could this be charcot foot?? Does he need nonweightbearing status? Recheck sed rate and uric acid in am. 2. right 2nd finger osteomyelitis - per ID recommendations. 3. HTN - uncontrolled - increase metoprolol to 50mg BID; if no improvement then increase norvasc to 2.5mg BID. 4. T2DM - uncontrolled chronically, but control while inpatient has been acceptable; pharmacy managing and assistance appreciated. 5. CAD - no ischemic symptoms at this time. Cont BB, statin, etc. 6. CKD stage 3 - creatinine stable, repeat in am. 7. hypothyroidism - TSH 06/2017 was 5; no change in synthroid at this time. Would repeat TSH as outpatient. 8. BPH - no voiding symptoms at this time. 9. chronic appearing DVT, left leg - despite apparent chronicity this deserves Rx. Eliquis 10mg BID x 7 days, then 5mg BID thereafter. 10. PT eval to ensure he is safe for home Continued [facility] stay due to: multiple IV medications needed Discharge planning: uncertain
[2017-07-14] MEDS: INDOMETHACIN 25 MG CAP PO SCH (21:20)
[2017-07-14] MEDS: APIXABAN 2.5 MG TAB PO SCH (21:20)
[2017-07-14] MEDS: MoRPHine SULFATE 4 MG/ML 1 ML CARP\\VIAL IV PRN (23:46)
[2017-07-15 00:10] VITALS: BP 159/71; PULSE 80; TEMP 37.2; O2SAT 95
[2017-07-15] MEDS ORDERED: INSULIN ASPART 100 UNITS/ML 3 ML PEN SC SCH (02:00)
[2017-07-15] MEDS: LEVOTHYROXINE 137 MCG TAB PO SCH (05:40)
[2017-07-15 06:36] LABS: BUN/CREATININE RATIO 16.7 (10-20); CALCIUM 8.4 mg/dl (8.5-10.1); CREATININE 1.6 mg/dl (0.60-1.40); POTASSIUM 3.7 mmol/L (3.5-5.1); URIC ACID 3.8 mg/dl (2.6-7.2)
[2017-07-15 07:07] VITALS: BP 191/81; PULSE 77; TEMP 36.7; O2SAT 96
--- NOTE | 2017-07-15 07:58 | Orthopedic Progress Note ---
Orthopedic Progress Note Date of Service Jul 15, 2017. Subjective Reports: feeling well Additional Notes: PATIENT SEEMS TO BE IMPROVING CLINICALLY. HE STATES HE FEELS BETTER WITH LESS PAIN. Objective calves soft nontender, N/V intact, capillary refill less than 2 sec., A&O x3 VERY MILD ERYTHEMA. IMPROVEMENT IN SWELLING. NO OPEN AREAS, FLUCTUANCE, OR STREAKING. 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 . Plan: Continue NSAID Continue IV anbx and consider change to PO anbx for 2 weeks Limited WB L LE - 50% WB Alternating heat and cold L foot Called to D/W Dr Mendoza anbx plan Nonoperative mgmt at this time ESR UP TO 73 FROM 53. URIC ACID NORMAL. WILL DISCUSS WITH YUSUF/KYLIE AND SEE IF THERE'S A CHANGE IN THE PLAN CLARIFIED WB STATUS WITH DR. GOLDBERG- HE CAN WB WITH A HIGH TIDE WALKING BOOT WITH CRUTCHES VS WALKER.
[2017-07-15] MEDS: PIPERACILL/TAZOBAC IV 3.375 GM in DEXTROSE 5% 100ML 100 ML IV SCH ×3 (09:10→23:43)
[2017-07-15] MEDS: DAPTOmycin IV 600 MG in SODIUM CHLORIDE 0.9% 50ML 50 ML IV SCH (09:14)
[2017-07-15] MEDS: AMLODIPINE BESYLATE 5 MG TAB PO SCH ×2 (09:16→20:50)
[2017-07-15] MEDS: SENNA 8.6 MG TAB PO SCH (09:17)
[2017-07-15] MEDS: ALLOPURINOL 100 MG TAB PO SCH (09:19)
[2017-07-15] MEDS: APIXABAN 2.5 MG TAB PO SCH ×2 (09:19→20:48)
[2017-07-15] MEDS: ASPIRIN 81 MG ECTAB PO SCH (09:20)
[2017-07-15] MEDS: ROSUVASTATIN CALCIUM 20 MG TAB PO SCH (09:21)
[2017-07-15] MEDS: INDOMETHACIN 25 MG CAP PO SCH ×3 (09:22→20:48)
[2017-07-15] MEDS: COLCHICINE 0.6 MG TAB PO SCH (09:22)
[2017-07-15] MEDS: METOPROLOL TARTRATE 50 MG TAB PO SCH (09:24)
[2017-07-15] MEDS: INSULIN ASPART 100 UNITS/ML 3 ML PEN SC SCH ×4 (09:39→20:53)
[2017-07-15] MEDS: INSULIN GLARGINE SOLOSTAR 100 UNITS/ML 3 ML PEN SC SCH ×2 (09:39→20:57)
[2017-07-15] MEDS ORDERED: METOPROLOL TARTRATE 25 MG TAB PO STA (12:07)
[2017-07-15 14:00] VITALS: BP 168/71; PULSE 65
--- NOTE | 2017-07-15 14:58 | Pharmacy Progress Note ---
Glycemic Control Progress Note Date of Service Jul 15, 2017. Scope Glycemic Pharmacist consulted for glycemic control to write orders per [facility] inpatient glycemic control protocol. Objective Accuchecks BSG (last 24hrs): Test 07/14/17 17:20 07/14/17 19:47 07/15/17 02:16 07/15/17 05:32 Bedside Glucose 173 mg/dl (70-99) 221 mg/dl (70-99) 77 mg/dl (70-99) Random Glucose 141 mg/dl (70-99) Test 07/15/17 08:12 07/15/17 12:11 Bedside Glucose 142 mg/dl (70-99) 186 mg/dl (70-99) Recent Pertinent Medications Outpatient Anti-diabetic Regimen: * Lantus 10 units qam and 100 units qpm + Novolog 10-20 units with meals * A1c = 11 % 06/20/17 The patient is currently receiving: * Basal insulin: Lantus 20 units SQ bid * Correctional Insulin: Novolog Correction per scale ACHS Goal Range: Low 140 mg/dL - High 180 mg/dL Correction Factor: 20 mg/dL/unit * Prandial insulin: Per carb ratio of 1 unit per 7 grams CHO consumed Risk Factors for Insulin Resistance: * Infection: daptomycin and zosyn for left foot osteo * Diet: T2DM, AHA Outpatient Anti-Diabetic Meds Basal Insulin * Lantus 10 units qAM and 100 units qHS Bolus Insulin * Novolog with meals, 10-20 units per meal Assessment & Plan ASSESSMENT: * 76 yr old T2DM male admitted with left foot osteomyelitis receiving broad spectrum antibiotics. * Patient is on large doses of insulin at home, 140-170 units per day, which is highly basal weighted (110 units basal). Per conversation with CDE, the pt reports rarely missing doses and frequent morning hypoglycemia. This is consistent with hospital stay as well; BSG of 56 and 67 mg/dL this am. BSGs become severely elevated during the day due to lack of prandial insulin. * Will continue basal/bolus regimen and re-distribute to 50% basal/50% bolus. Will start with weight/stress of 2 and titrate as needed. * ADA & AACE recommend a goal blood sugar range 140-180 mg/dl for the majority of critically ill & non-critically ill patients. However, more stringent targets may be selected in individual cases. Will continue this goal range for now due to recent hypoglycemia, A1c of 11%, and unknown insulin needs. 07/15/17 * BSGs ranged from 63 - 221 mg/dL over the past 24 hours * Pt received 58 units of insulin yesterday - significantly less than reported home use of 140-170 units per day * Fasting BSG elevated today (142), however, pt was given juice and crackers with peanut butter early in the morning for BSG of 63 mg/dL. Fasting elevation may be due to do this. Pt tends to have hypoglycemia overnight when given dose of Novolog at bedtime. Discussed with nursing. They plan to give pt a snack at bedtime. * Continue to re-distribute regimen as explained above * Will slightly decrease basal insulin * Tighten CF/CR PLAN FOR INPATIENT GLYCEMIC CONTROL: * Basal insulin - decrease * Lantus 16 units SQ BID * Correctional Insulin with NOVOLOG per scale ACHS - tighten * Goal Range: Low 140 mg/dL - High 180 mg/dL * Correction Factor: 18 mg/dL/unit * Nutritional / Prandial insulin per carb ratio of 1 unit per 6 grams CHO consumed * Will keep CF/CR of 20/7 at 2100 since BSG tends to drop below 100 mg/dL overnight * Please note that the plan above was derived based on current level of insulin resistance and hospital stress. These recommendations are appropriate for inpatient admission only. Plan of care upon discharge will need to be reassessed to avoid potential outpatient hypo/hyperglycemia. Thank you.
[2017-07-15 15:38] VITALS: BP 153/73; PULSE 60; TEMP 36.4; O2SAT 97
--- NOTE | 2017-07-15 17:19 | DIAGNOSTIC IMAGING REPORT ---
LEFT ANKLE MIN 3 VIEWS ROUTINE, LEFT FOOT MIN 3 VIEWS ROUTINE HISTORY: 76 years-old Male left ankle swelling; eval for pseudogout, etc acute left ankle pain and swelling without reported injury. 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 COMPARISON: Left lower extremity MRI 02/03/2017. TECHNIQUE: 3 views of the left foot and 3 views of the left ankle. FINDINGS: ANKLE: Bones are mildly demineralized. No acute fracture or dislocation identified. There is mild spurring at the plantar calcaneus. Peripheral vascular calcifications are noted. Moderate soft tissue swelling is noted about the ankle with small joint effusion. No erosive arthropathy. There is spurring of the medial and lateral malleoli. FOOT: Erosive changes involving the tarsometatarsal joints are again seen, notably within the third and fourth digits as described on comparison MRI. Moderate diffuse soft tissue swelling of the foot is seen. There also suggested erosive changes along the caudal aspect of the cuboid. Periarticular osteopenia is noted. No chondrocalcinosis is identified. No acute fracture or dislocation. IMPRESSION: 1. No acute fracture or dislocation. 2. Articular erosions of the tarsal metatarsal joints are redemonstrated, better evaluated on comparison MRI 07/06/2017. Moderate soft tissue swelling is seen about the foot and ankle with peripheral vascular disease. 3. No chondrocalcinosis. The above report was generated using voice recognition software. It may contain grammatical, syntax or spelling errors. Electronically signed by: Reginald Pillai M.D. 07/15/2017 5:17 PM Dictated Date/Time: 07/15/2017 5:09 PM
--- NOTE | 2017-07-15 19:27 | Progress Note ---
Subjective Date of Service: Jul 15, 2017. Subjective Pt evaluation today including: conversation w/ patient, conversation w/ family ( at bedside), physical exam, chart review, lab review, review of studies (x -rays - left ankle, left foot), conversation w/ otm consultant (orthopedics PA), review of inpatient medication list Pain: left foot better, left ankle slightly more painful today PO Intake: normal Voiding: no voiding problems no issues overnight little to no pain of left ankle/foot at rest but with walking he has pain denies any new complaints DOES have peripheral neuropathy and has had such for some time Problem List Medical Problems: (1) Cellulitis of left foot Status: Acute (2) Cellulitis of right hand Status: Acute (3) Failure of outpatient treatment Status: Acute (4) Hyperglycemia Status: Acute (5) Osteomyelitis Status: Acute Review of Systems Constitutional: No fever, No chills Respiratory: No shortness of breath Cardiac: No chest pain Abdomen: No pain, No nausea Objective Vital Signs Date Time Temp Pulse Resp B/P (MAP) Pulse Ox O2 Delivery O2 Flow Rate FiO2 07/15/17 15:38 36.4 60 16 153/73 (99) 97 Room Air 07/15/17 14:00 65 168/71 (103) 07/15/17 08:30 Room Air 07/15/17 07:07 36.7 77 19 191/81 (117) 96 Room Air 07/15/17 00:10 37.2 80 14 159/71 (100) 95 Room Air 07/14/17 23:45 Room Air 07/14/17 19:58 166/70 (102) Physical Exam General Appearance: no apparent distress ENT: pharynx normal Neck: no JVD Respiratory/Chest: lungs clear, no respiratory distress, no accessory muscle use Cardiovascular: regular rate, rhythm, no gallop, + systolic murmur (1-2/6 NUNO LSB) Abdomen: normal bowel sounds, non tender, soft, no organomegaly Extremities: + pertinent finding (left ankle with mild synovitis and slightly tender to palpation; left foot, dorsum, without significant swelling or tenderness; toes wnl; right 2nd finger with mild swelling but active ROM does not cause any pain) Neurologic/Psychiatric: alert, oriented x 3 Skin: + pertinent finding (no ulcers of left foot ) Laboratory Results Last 24 Hours Test 07/14/17 19:47 07/15/17 02:16 07/15/17 05:32 07/15/17 08:12 Bedside Glucose 221 mg/dl 77 mg/dl 142 mg/dl Erythrocyte Sedimentation Rate 73 mm/hr Sodium Level 139 mmol/L Potassium Level 3.7 mmol/L Chloride Level 107 mmol/L Carbon Dioxide Level 24 mmol/L Anion Gap 8.0 mmol/L Blood Urea Nitrogen 27 mg/dl Creatinine 1.60 mg/dl Est Creatinine Clear Calc Drug Dose 51.7 ml/min Estimated GFR () 47.5 Estimated GFR (Non- 40.9 BUN/Creatinine Ratio 16.7 Random Glucose 141 mg/dl Uric Acid 3.8 mg/dl Calcium Level 8.4 mg/dl Total Creatine Kinase 46 U/L C-Reactive Protein 11.60 mg/dl Test 07/15/17 12:11 07/15/17 17:13 Bedside Glucose 186 mg/dl 176 mg/dl Assessment and Plan 76yo male: 1. left foot and ankle pain - infectious(?osteomyelitis) vs gouty midfoot arthritis vs noninfectious (Charcot foot?). Despite numerous courses of outpatient abx he has had no response to treatment. He continues with pain although the midfoot pain IS improved today with NSAIDs over the last few days. His main complaint today is the left ankle. Plain films obtained today - no pseudogout findings. No fractures. Erosive changes (seen on prior MRI as well) also seen. Cont indocin 1 more day. Cont colchicine 0.6mg daily if this is gouty arthritis. Cont allopurinol. Discussed his case with orthopedic PA today. Exact dx/etiology uncertain. Could this be charcot foot? Weightbearing status to be determined by orthopedics. Uric acid level is <6. However, sed rate has increased over the last few days despite abx and NSAIDs - significance? cause? Cont NSAIDs and abx for now. 2. right 2nd finger osteomyelitis - per ID recommendations. 3. HTN - uncontrolled again- increase metoprolol to 75mg BID; cont norvasc 2.5mg BID. 4. T2DM - uncontrolled chronically, but control while inpatient has been acceptable; pharmacy managing and assistance appreciated. 5. CAD - no ischemic symptoms at this time. Cont BB, statin, etc. 6. CKD stage 3 - creatinine stable again today (1.6). 7. hypothyroidism - TSH 06/2017 was 5; no change in synthroid at this time. Would repeat TSH as outpatient. 8. BPH - no voiding symptoms at this time. 9. chronic appearing DVT, left leg - despite apparent chronicity this deserves Rx. Eliquis 10mg BID x 7 days, then 5mg BID thereafter. 10. PT eval appreciated; cleared for home 11. murmur - doubt endocarditis/valve lesions, but given his murmur and #1 - will obtain echo. updated at bedside Continued [facility] stay due to: multiple IV medications needed Discharge planning: home with home health
[2017-07-15] MEDS: METOPROLOL TARTRATE 25 MG TAB PO SCH (20:48)
[2017-07-15] MEDS: TRAMADOL HCL 50 MG TAB PO PRN (20:49)
[2017-07-15 23:08] VITALS: BP 166/69; PULSE 58; TEMP 36.2; O2SAT 95
[2017-07-16] VITALS (7 sets, daily range): BP systolic 147–191; BP diastolic 66–87; PULSE 60–73; TEMP 36.4–36.7; O2SAT 96–98
[2017-07-16] MEDS: LEVOTHYROXINE 137 MCG TAB PO SCH (05:30)
[2017-07-16 07:06] LABS: C-REACTIVE PROTEIN 10.2 mg/dl (0-0.29); CREATININE 1.5 mg/dl (0.60-1.40)
--- NOTE | 2017-07-16 08:50 | Orthopedic Progress Note ---
Orthopedic Progress Note Date of Service Jul 16, 2017. Subjective Reports: feeling well, Denies: chest pain, SOB, nausea / vomiting, light headedness, calf pain Additional Notes: CLINICALLY IMPROVING. STATES PAIN IS LESS. HE WALKED TO THE BATHROOM THIS AM AND WAS MUCH MORE COMFORTABLE. STILL DOES NOT HAVE BOOT.HAD AN ECHO THIS AM. Objective calves soft nontender, N/V intact, capillary refill less than 2 sec., A&O x3 LESS EDEMA TODAY. NO ERYTHEMA. 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 . Plan: Continue NSAID Continue IV anbx and consider change to PO anbx for 2 weeks Limited WB L LE - 50% WB UNTIL HE GETS THE BOOT Alternating heat and cold L foot Called to D/W Dr Mendoza anbx plan Nonoperative mgmt at this time ESR UP TO 73 FROM 53. URIC ACID NORMAL. WILL DISCUSS WITH YUSUF/KYLIE AND SEE IF THERE'S A CHANGE IN THE PLAN CLARIFIED WB STATUS WITH DR. GOLDBERG- HE CAN WB WITH A HIGH TIDE WALKING BOOT WITH CRUTCHES VS WALKER. 07/16- CRP 10.2 DOWN FROM 11. CLINICALLY IMPROVING. AWAITING BOOT. DISCUSSED CASE WITH DR. DAVIS YESTERDAY EVENING. STILL UNKNOWN ETIOLOGY. MRI CONSISTENT WITH OSTEOMYELITIS, IMPROVING ON IV ABX. NON SURGICAL PER DR. GOLDBERG.
[2017-07-16] MEDS: PIPERACILL/TAZOBAC IV 3.375 GM in DEXTROSE 5% 100ML 100 ML IV SCH (09:58)
[2017-07-16] MEDS: DAPTOmycin IV 600 MG in SODIUM CHLORIDE 0.9% 50ML 50 ML IV SCH (09:59)
[2017-07-16] MEDS: APIXABAN 2.5 MG TAB PO SCH ×2 (10:00→20:58)
[2017-07-16] MEDS: ASPIRIN 81 MG ECTAB PO SCH (10:01)
[2017-07-16] MEDS: ROSUVASTATIN CALCIUM 20 MG TAB PO SCH (10:01)
[2017-07-16] MEDS: INDOMETHACIN 25 MG CAP PO SCH ×2 (10:01→14:12)
[2017-07-16] MEDS: SENNA 8.6 MG TAB PO SCH (10:01)
[2017-07-16] MEDS: AMLODIPINE BESYLATE 5 MG TAB PO SCH ×2 (10:01→20:59)
[2017-07-16] MEDS: METOPROLOL TARTRATE 25 MG TAB PO SCH ×2 (10:02→20:59)
[2017-07-16] MEDS: ALLOPURINOL 100 MG TAB PO SCH (10:03)
[2017-07-16] MEDS: COLCHICINE 0.6 MG TAB PO SCH (10:03)
[2017-07-16] MEDS: INSULIN ASPART 100 UNITS/ML 3 ML PEN SC SCH ×4 (10:07→21:04)
[2017-07-16] MEDS: INSULIN GLARGINE SOLOSTAR 100 UNITS/ML 3 ML PEN SC SCH ×2 (10:08→21:03)
--- NOTE | 2017-07-16 11:32 | PROGRESS NOTE ---
DATE: 07/16/2017 SUBJECTIVE: Jamaal is seen at bedside today. He notes overall improvements in his foot and feels better. OBJECTIVE: Temperature 36.2. Left foot exam shows resolution of erythema. He has supple motion of the ankle without pain. He has no evidence of septic joint. I do not detect any evidence of gouty flare. Cellulitis is resolving. ASSESSMENT: Left foot pain and swelling, likely osteomyelitis. PLAN: I reviewed his MRI and radiographs as well as laboratory studies. I feel this may represent osteomyelitic lesion with significant clinical improvement with intravenous antibiotics. RECOMMENDATIONS: Continue intravenous antibiotics. He may be 50% weightbearing for now until he gets High Tide boot. At this point in time, no surgical indications. If he is discharged, he may follow up with Dr. De La Fuente in approximately 10 days after discharge for further evaluation.
--- NOTE | 2017-07-16 12:45 | Progress Note ---
Subjective Date of Service: Jul 16, 2017. (Marisa Balderrama, MKC) Subjective Pt evaluation today including: conversation w/ patient, physical exam, chart review, lab review, review of studies, conversation w/ student union consultant, review of inpatient medication list Patient states that his left foot is feeling slightly better today. He is complaining of some loose stools that are slightly foul smelling. He otherwise is tolerating his abx well. He continues on IV Daptomycin and Zosyn. He did have fever of 38 C on 07/13, but has been afebrile since. Pain is well controlled on current medication. He feels that the pain has decreased in the left foot. It does not radiate. He has not been up on his foot very much, but he has been OOB to his chair. Labs this morning: CRP 10.20, which is slightly down from 11.6 yesterday Creatinine 1.50 today, down from 1.6 Blood Cx: NGTD Studies reviewed. X-Ray images viewed by me as well Ankle/Foot X-ray 07/15: No acute fracture. Articular erosions of the tarsal metatarsal joints, moderate soft tissue swelling with peripheral vascular disease, and no chondrocalcinosis. Also discussed patient with Dr. Bloom and Dr. Gonzalez. (Marisa Balderrama ., PA-C) Problem List Medical Problems: (1) Cellulitis of left foot Status: Acute (2) Cellulitis of right hand Status: Acute (3) Failure of outpatient treatment Status: Acute (4) Hyperglycemia Status: Acute (5) Osteomyelitis Status: Acute (Marisa Balderrama ., MKC) Review of Systems All Other Systems: Reviewed and Negative (Marisa Balderrama, MKC) Medications Current Inpatient Medications Medications (Trade) Dose Ordered Sig/Erik Route Start Time Stop Time Status Last Admin Dose Admin Acetaminophen (Tylenol Tab) 650 mg Q4H PRN PO 07/11/17 18:15 08/10/17 18:14 Al Hydrox/Mg Hydrox/Simethicone (Maalox Max Susp) 15 ml Q4H PRN PO 07/11/17 18:15 08/10/17 18:14 Magnesium Hydroxide (Milk Of Magnesia Susp) 30 ml Q6H PRN PO 07/11/17 18:15 08/10/17 18:14 Polyethylene (Miralax Powder Packet) 17 gm DAILY PRN PO 07/11/17 19:30 08/10/17 19:29 Ondansetron HCl (Zofran Inj) 4 mg Q6H PRN IV 07/11/17 18:15 08/10/17 18:14 Glucose (Glucose 40% Gel) 15-30 GRAMS 15 GRAMS... UD PRN PO 07/11/17 18:15 08/10/17 18:14 Glucose (Glucose Chew Tab) 4-8 Tablets 4 Tabl... UD PRN PO 07/11/17 18:15 08/10/17 18:14 Dextrose (Dextrose 50% 50ML Syringe) 25-50ML OF 50% DW IV FOR... UD PRN IV 07/11/17 18:15 08/10/17 18:14 Glucagon (Glucagon Inj) 1 mg UD PRN SQ 07/11/17 18:15 08/10/17 18:14 Allopurinol (Zyloprim Tab) 100 mg DAILY PO 07/12/17 09:00 08/11/17 08:59 07/16/17 10:03 100 MG Aspirin (Ecotrin Tab) 81 mg DAILY PO 07/12/17 09:00 08/11/17 08:59 07/16/17 10:01 81 MG Levothyroxine Sodium (Synthroid Tab) 137 mcg DAILYBB PO 07/12/17 06:00 08/11/17 06:59 07/16/17 05:30 137 MCG Rosuvastatin Calcium (Crestor Tab) 40 mg DAILY PO 07/12/17 09:00 08/11/17 08:59 07/16/17 10:01 40 MG Senna (Senokot Tab) 8.6 mg DAILY PO 07/12/17 09:00 08/11/17 08:59 07/16/17 10:01 8.6 MG Tramadol HCl (Ultram Tab) 50 mg Q4H PRN PO 07/11/17 18:30 08/10/17 18:29 07/15/17 20:49 50 MG Morphine Sulfate (MoRPHine SULFATE INJ) 4 mg Q4H PRN IV 07/11/17 18:45 07/25/17 18:44 07/14/17 23:46 4 MG Daptomycin 600 mg/ Sodium Chloride 62 ml @ 100 mls/hr Q24H IV 07/12/17 09:00 08/23/17 08:59 07/16/17 09:59 100 MLS/HR Heparin Sodium (Porcine) (Heparin 10 Unit/ ml 5 ml Flush) 5 ml PRN PRN FLUSH 07/12/17 08:15 08/11/17 08:14 07/16/17 05:28 5 ML Piperacillin Sod/ Tazobactam Sod 3.375 gm/Dextrose 115 ml @ 28.75 mls/ hr Q8H IV 07/12/17 16:00 08/23/17 15:59 07/16/17 09:58 28.75 MLS/HR Piperacillin Sod/ Tazobactam Sod (Consult) 1 ea UD PRN N/A 07/12/17 10:15 08/11/17 10:14 Miscellaneous Information (Consult Glycemic Management Pharmacy) 1 ea UD PRN N/A 07/13/17 10:53 08/12/17 10:52 Indomethacin (Indocin Cap) 25 mg TID PO 07/14/17 21:00 07/16/17 20:59 07/16/17 10:01 25 MG Colchicine (Colchicine Tab) 0.6 mg QAM PO 07/15/17 09:00 08/14/17 08:59 07/16/17 10:03 0.6 MG Amlodipine Besylate (Norvasc Tab) 2.5 mg BID PO 07/14/17 21:00 08/11/17 08:59 07/16/17 10:01 2.5 MG Apixaban (Eliquis Tab) 10 mg BID PO 07/14/17 21:00 07/21/17 09:01 07/16/17 10:00 10 MG Insulin Aspart (novoLOG ASPART) SLIDING SCALE If C... AC SC 07/15/17 08:45 08/14/17 08:44 07/16/17 10:07 4 UNITS Insulin Aspart (novoLOG ASPART) PLEASE GIVE PATIEN... HS SC 07/15/17 21:00 08/14/17 20:59 Metoprolol Tartrate (Lopressor Tab) 75 mg BID PO 07/15/17 21:00 08/11/17 08:59 07/16/17 10:02 75 MG Insulin Glargine (Lantus Solostar Pen) 18 units BID SC 07/16/17 09:00 08/15/17 08:59 07/16/17 10:08 18 UNITS (Marisa Balderrama ., EZEQUIEL-C) Objective Vital Signs Date Time Temp Pulse Resp B/P (MAP) Pulse Ox O2 Delivery O2 Flow Rate FiO2 07/16/17 00:00 Room Air 07/16/17 00:00 155/69 (97) 07/15/17 23:08 36.2 58 16 166/69 (101) 95 Room Air 07/15/17 16:55 Room Air 07/15/17 15:38 36.4 60 16 153/73 (99) 97 Room Air 07/15/17 14:00 65 168/71 (103) (Marisa Balderrama ., PA-C) Physical Exam General Appearance: WD/WN, no apparent distress Eyes: normal inspection, sclerae normal ENT: hearing grossly normal Neck: supple, trachea midline Respiratory/Chest: chest non-tender, lungs clear, normal breath sounds, no respiratory distress, no accessory muscle use Cardiovascular: regular rate, rhythm Abdomen: normal bowel sounds, non tender, soft Extremities: + pertinent finding (left foot with mild edema, left ankle with mild to moderate edema. Nontender to palpation. No warmth noted. Very mild erythema of the left lateral ankle, but otherwise no erythema noted. ) Neurologic/Psychiatric: alert, normal mood/affect Skin: normal color, warm/dry, no rash (Marisa Balderrama ., PA-C) Laboratory Results LEFT ANKLE MIN 3 VIEWS ROUTINE, LEFT FOOT MIN 3 VIEWS ROUTINE HISTORY: 76 years-old Male left ankle swelling; eval for pseudogout, etc acute left ankle pain and swelling without reported injury. 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 COMPARISON: Left lower extremity MRI 02/03/2017. TECHNIQUE: 3 views of the left foot and 3 views of the left ankle. FINDINGS: ANKLE: Bones are mildly demineralized. No acute fracture or dislocation identified. There is mild spurring at the plantar calcaneus. Peripheral vascular calcifications are noted. Moderate soft tissue swelling is noted about the ankle with small joint effusion. No erosive arthropathy. There is spurring of the medial and lateral malleoli. FOOT: Erosive changes involving the tarsometatarsal joints are again seen, notably within the third and fourth digits as described on comparison MRI. Moderate diffuse soft tissue swelling of the foot is seen. There also suggested erosive changes along the caudal aspect of the cuboid. Periarticular osteopenia is noted. No chondrocalcinosis is identified. No acute fracture or dislocation. IMPRESSION: 1. No acute fracture or dislocation. 2. Articular erosions of the tarsal metatarsal joints are redemonstrated, better evaluated on comparison MRI 07/06/2017. Moderate soft tissue swelling is seen about the foot and ankle with peripheral vascular disease. 3. No chondrocalcinosis. The above report was generated using voice recognition software. It may contain grammatical, syntax or spelling errors. Item Value Date Time Blood Culture - Preliminary Resulted 07/11/17 1725 Blood NO GROWTH TO DATE. Blood Culture - Preliminary Resulted 07/11/17 1720 Blood NO GROWTH TO DATE. Last 24 Hours Test 07/15/17 12:11 07/15/17 17:13 07/15/17 20:25 07/16/17 05:27 Bedside Glucose 186 mg/dl 176 mg/dl 155 mg/dl Creatinine 1.50 mg/dl Est Creatinine Clear Calc Drug Dose 55.1 ml/min Estimated GFR () 51.3 Estimated GFR (Non- 44.3 C-Reactive Protein 10.20 mg/dl Test 07/16/17 07:59 Bedside Glucose 152 mg/dl (Marisa Balderrama ., MKC) Assessment and Plan Left Foot and Ankle pain: Probable infectious etiology versus crystal arthropathy versus noninfection/chronic changes s/a Charcot foot -Orthopedics feels probable infectious etiology. Discussed with Dr. Bloom and Wandy Andrade PA-C. Appreciate recommendations. Feel that patient can likely F/U with Dr. De La Fuente as outpatient and also could get boot for left foot as outpatient as well. -If boot is not obtained prior to discharge, ortho recommends likely home with crutches and 50% weight bearing until seen in F/U -Pain has improved over the past few days according to patient. -Currently on IV Zosyn and Daptomycin- seems patient has improved but unsure if abx related, NSAIDs, gout tx? Discussed with Dr. Mendoza today- will transition to IV Ertapenem and continue Daptomycin. If patient tolerates these, likely could D/C Home until follow up with Dr. De La Fuente- will likely need bone biopsy. He has PICC line in place. -Continue Colchicine and allopurinol. D/C Indocin today -Echo pending. Will check Arterial Doppler of left lower extremity Right 2nd Finger osteomyelitis -ID Following. Improved on abx. HTN -Metoprolol increased to 75 mg BID, Norvasc 2.5 mg BID- continues to have elevated BP today up to 166/69 DM2 -Uncontrolled chronically, but control while inpatient has been acceptable; pharmacy managing and assistance appreciated. CAD -No ischemic symptoms at this time. Cont BB, statin, etc. CKD Stage III -Creatinine slightly improved today to 1.5. Hypothyroidism -No change in medication, recheck TSH as outpatient Chronic DVT, Left leg -Eliquis 10mg BID x 7 days, then 5mg BID thereafter. New onset loose stools -Will check C. Diff toxin today Continued [facility] stay due to: multiple IV medications needed Discharge planning: home with home health (Marisa Balderrama ., PA-C) Attending Attestation: Pt seen/examined, chart reviewed, care plan d/w PA Patricia Morillo. I agree w/ the zavala components of her documentation. I also discussed this patient's case with the orthopedic PA today. Pt feels better - that is, the pain in left foot is improved; ankle also slightly better. Having diarrhea. VSS no fever gen - nad heart - RRR abd - soft, NT, ND ext - mild swelling left ankle, minimal tenderness to touch; scant swelling over dorsum of mid-foot but nontender to palpation A/P: 1. left foot pain, chronic, with abnormal MRI suggestive of multiple areas of osteomyelitis - pain improved. agree that it is difficult to say if NSAIDs or antibiotics allowed him to improve. At this point we are treating for possible osteomyelitis with concomitant gout. Charcot foot was entertained but not felt to be responsible for current symptomatology. Agree with abx selection (ertapenem, dapto). Has RUE PICC in place. Ask SW to arrange home abx. Needs walker boot/shoe. 2. HTN - uncontrolled - increase norvasc to 5mg BID. 3. T2DM - controlled. progressing David GONZALEZ MD (Marquise Gonzalez MD)
--- NOTE | 2017-07-16 13:56 | ECHOCARDIOGRAM REPORT ---
*NOTICE TO RECEIVING [employer] This information is strictly Confidential and protected under [place] law. [place] law prohibits you from making any further disclosure of this information unless further disclosure is expressly permitted by the written consent of the person to whom it pertains or is authorized by law. A general authorization for the release of medical or other information is not sufficient for this purpose. Hospital accepts no responsibility if the information is made available to any other person, INCLUDING THE PATIENT. Interpretation Summary * Name: EVITA TROTTER Study Date: 07/16/2017 07:28 AM BP: 155/69 mmHg * Patient Location: .[facility] [place]\S\N387\S\2 HR: 65 * : 1940 (M/d/yyyy) Gender: Male Height: 76 in * Age: 76 yrs Ethnicity: [place] Weight: 233 lb * Ordering Physician: Marquise Gonzalez * Referring Physician: Warren Mendoza * Performed By: Yu Li * * Reason For Study: ENDOCARDITIS * BSA: 2.4 m2 * -- Conclusions -- * The left ventricle is hyperdynamic. * No regional wall motion abnormalities noted. * Ejection Fraction = >70 %. * There is moderate concentric left ventricular hypertrophy. * Grade I diastolic dysfunction, (abnormal relaxation pattern). * No obvious valvular vegetation. Procedure Details * A complete two-dimensional transthoracic echocardiogram was performed (2D, M-mode, Doppler and color flow Doppler). Left Ventricle * The left ventricle is normal in size. * There is moderate concentric left ventricular hypertrophy. * Ejection Fraction = >70 %. * The left ventricle is hyperdynamic. * No regional wall motion abnormalities noted. Right Ventricle * The right ventricle is grossly normal size. * The right ventricular systolic function is normal as assessed by tricuspid annular plane systolic excursion (TAPSE) (normal >1.5 cm). Atria * The left atrium is mildly dilated. * Right atrial size is normal. * There is no evidence of atrial septal defect, but resolution does not allow assessment for a patent foramen ovale. Mitral Valve * The anterior mitral leaflet is thickened. * A vegetation on the mitral valve cannot be excluded. * There is no mitral valve stenosis. * Significant mitral regurgitation is absent. Tricuspid Valve * The tricuspid valve anatomy is normal. * There is no tricuspid valve vegetation. * There is no tricuspid stenosis. * Significant tricuspid regurgitation is absent. Aortic Valve * The aortic valve is tricuspid. The leaflet thickness if normal. There is no aortic stenosis, and no significant insufficiency. * The aortic valve opens well. * Aortic valve sclerosis mild, without significant aortic valvular stenosis. * There is no aortic valvular vegetation. * No aortic regurgitation is present. Pulmonic Valve * The pulmonary valve is not well seen, but the Doppler examination is normal without significant regurgitation or stenosis. Great Vessels * The aortic root is normal size. * The pulmonary artery is not well visualized, but is probably normal size. Pericardium/Pleural * There is no pericardial effusion. Great Vessels * Normal inferior vena cava size and collapsability with sniff indicates a normal right atrial pressure of 3 mmHg Left Ventricular Diastolic Function * Grade I diastolic dysfunction, (abnormal relaxation pattern). MMode 2D Measurements and Calculations IVSd 2.3 cm IVSs 2.2 cm LVIDd 4.6 cm LVIDs 2.8 cm LVPWd 1.1 cm LVPWs 2.2 cm IVS/LVPW 2.2 FS 39.1 % EDV(Teich) 97.5 ml ESV(Teich) 29.7 ml EF(Teich) 69.6 % EDV(cubed) 97.6 ml ESV(cubed) 22.1 ml EF(cubed) 77.4 % % IVS thick -3.55 % % LVPW thick 112.5 % LV mass(C)d 335.2 grams LV mass(C)dI 141.8 grams/m\S\2 LV mass(C)s 297.7 grams LV mass(C)sI 125.9 grams/m\S\2 CO(Teich) 4.1 l/min CI(Teich) 1.7 l/min/m\S\2 SV(Teich) 67.8 ml SI(Teich) 28.7 ml/m\S\2 CO(cubed) 4.5 l/min CI(cubed) 1.9 l/min/m\S\2 SV(cubed) 75.5 ml SI(cubed) 31.9 ml/m\S\2 EPSS 1.3 cm ACS 1.7 cm LA dimension 4.3 cm asc Aorta Diam 3.5 cm LVOT diam 2.3 cm LVOT area 4.3 cm\S\2 LVAd ap4 31.9 cm\S\2 LVLd ap4 8.4 cm EDV(MOD-sp4) 99.9 ml LVAs ap4 14.3 cm\S\2 LVLs ap4 7.0 cm ESV(MOD-sp4) 26.4 ml EF(MOD-sp4) 73.6 % LVAd ap2 27.4 cm\S\2 LVLd ap2 7.7 cm EDV(MOD-sp2) 81.7 ml LVAs ap2 13.5 cm\S\2 LVLs ap2 6.8 cm ESV(MOD-sp2) 23.5 ml EF(MOD-sp2) 71.2 % CO(MOD-sp4) 4.4 l/min CI(MOD-sp4) 1.9 l/min/m\S\2 SV(MOD-sp4) 73.5 ml SI(MOD-sp4) 31.1 ml/m\S\2 CO(MOD-sp2) 3.5 l/min CI(MOD-sp2) 1.5 l/min/m\S\2 SV(MOD-sp2) 58.2 ml SI(MOD-sp2) 24.6 ml/m\S\2 Doppler Measurements and Calculations MV E max liz 107.7 cm/sec MV A max liz 123.7 cm/sec MV E/A 0.87 MV dec time 0.22 sec Ao V2 max 105.3 cm/sec Ao max PG 4.4 mmHg Ao max PG (full) 1.0 mmHg BARB(V,A) 3.7 cm\S\2 BARB(V,D) 3.7 cm\S\2 LV V1 max PG 3.4 mmHg LV V1 max 92.2 cm/sec PA V2 max 79.5 cm/sec PA max PG 2.5 mmHg
[2017-07-16] MEDS: ERTAPENEM IV 1,000 MG in SODIUM CHLORIDE 0.9% 50ML 50 ML IV SCH (14:12)
--- NOTE | 2017-07-16 14:23 | DIAGNOSTIC IMAGING REPORT ---
LEFT LOWER EXTREMITY ARTERIAL DOPPLER ULTRASOUND CLINICAL HISTORY: Left foot osteomyelitis. COMPARISON STUDY: No previous studies for comparison. FINDINGS: The left ankle to brachial index measured 0.95 when using posterior tibial artery and 1.02 when using the dorsalis pedis. Right upper extremity blood pressure could not be obtained. There is mild atherosclerotic plaque within the left lower extremity. There is biphasic flow throughout the left lower extremity. No vessel occlusion is identified. The left common femoral, superficial femoral, popliteal, anterior tibial, posterior tibial, peroneal and dorsalis pedis vessels were patent. IMPRESSION: 1. Normal left ankle to brachial index. 2. Mild atherosclerotic plaque within the left lower kidney. Patent vessels. No convincing evidence for a hemodynamically significant stenosis. Electronically signed by: Beny Ruiz M.D. 07/16/2017 2:22 PM Dictated Date/Time: 07/16/2017 2:17 PM
--- NOTE | 2017-07-16 14:45 | Pharmacy Progress Note ---
Glycemic Control Progress Note Date of Service Jul 16, 2017. Scope Glycemic Pharmacist consulted for glycemic control to write orders per [facility] inpatient glycemic control protocol. Objective Accuchecks BSG (last 24hrs): Test 07/15/17 17:13 07/15/17 20:25 07/16/17 07:59 07/16/17 11:57 Bedside Glucose 176 mg/dl (70-99) 155 mg/dl (70-99) 152 mg/dl (70-99) 198 mg/dl (70-99) Recent Pertinent Medications The patient is currently receiving: * Basal insulin: Lantus 16 units SQ bid * Correctional Insulin: Novolog Correction per scale Goal Range: Low 140 mg/dL - High 180 mg/dL CF/CR 18/6 AC CF/CR 20/7 HS (to limit overnight hypoglycemia) Risk Factors for Insulin Resistance: * Infection: daptomycin and zosyn for left foot osteo * Diet: T2DM, AHA Outpatient Anti-Diabetic Meds Basal Insulin * Lantus 10 units qAM and 100 units qHS Bolus Insulin * Novolog with meals, 10-20 units per meal Assessment & Plan ASSESSMENT: * 76 yr old T2DM male admitted with left foot osteomyelitis receiving broad spectrum antibiotics. * Patient is on large doses of insulin at home, 140-170 units per day, which is highly basal weighted (110 units basal). Per conversation with CDE, the pt reports rarely missing doses and frequent morning hypoglycemia. This is consistent with hospital stay as well; BSG of 56 and 67 mg/dL this am. BSGs become severely elevated during the day due to lack of prandial insulin. * Will continue basal/bolus regimen and re-distribute to 50% basal/50% bolus. Will start with weight/stress of 2 and titrate as needed. 07/15/17 * BSGs ranged from 63 - 221 mg/dL over the past 24 hours * Pt received 58 units of insulin yesterday - significantly less than reported home use of 140-170 units per day * Fasting BSG elevated today (142), however, pt was given juice and crackers with peanut butter early in the morning for BSG of 63 mg/dL. Fasting elevation may be due to do this. Pt tends to have hypoglycemia overnight when given dose of Novolog at bedtime. Discussed with nursing. They plan to give pt a snack at bedtime. * Continue to re-distribute regimen as explained above * Will slightly decrease basal insulin * Tighten CF/CR 07/16/17 * Increase Lantus for elevated fasting BSG of 152 mg/dL * Lower Novolog goal range to 110-140 mg/dL to allow for more correctional insulin to be given at mealtimes * Anticipate patient needing ~ 70 units of insulin per day PLAN FOR INPATIENT GLYCEMIC CONTROL: * Basal insulin - increase * Lantus 18 units SQ BID * Correctional Insulin with NOVOLOG per scale ACHS * Goal Range: Low 110 mg/dL - High 140 mg/dL * Correction Factor: 18 mg/dL/unit * Nutritional / Prandial insulin per carb ratio of 1 unit per 6 grams CHO consumed * CF/CR of / at 2100 since BSG tends to drop below 100 mg/dL overnight * Please note that the plan above was derived based on current level of insulin resistance and hospital stress. These recommendations are appropriate for inpatient admission only. Plan of care upon discharge will need to be reassessed to avoid potential outpatient hypo/hyperglycemia. Thank you.
[2017-07-16] MEDS ORDERED: HydrALAZINE HCL 20 MG/ML VIAL IV. STA (15:43)
[2017-07-17] MEDS: LEVOTHYROXINE 137 MCG TAB PO SCH (05:39)
[2017-07-17 06:33] LABS: BUN/CREATININE RATIO 17.3 (10-20); CALCIUM 8.6 mg/dl (8.5-10.1); CREATININE 1.5 mg/dl (0.60-1.40)
[2017-07-17 07:33] VITALS: BP 167/82; PULSE 73; TEMP 37; O2SAT 98
--- NOTE | 2017-07-17 07:42 | Orthopedic Progress Note ---
Orthopedic Progress Note Date of Service Jul 17, 2017. Subjective Reports: feeling well, Denies: chest pain, SOB, nausea / vomiting, light headedness, calf pain Additional Notes: IMPROVING MORE EACH DAY. Objective calves soft nontender, N/V intact, capillary refill less than 2 sec., A&O x3 MILD ANKLE SWELLING. NO ERYTHEMA. NO PAIN WITH ROM Date Time Temp Pulse Resp B/P (MAP) Pulse Ox O2 Delivery O2 Flow Rate FiO2 07/17/17 07:33 37.0 73 19 167/82 (110) 98 Room Air 07/17/17 00:00 Room Air 07/16/17 23:40 36.7 60 17 147/72 (97) 96 Room Air 07/16/17 22:53 36.6 61 16 168/66 (100) 97 Room Air 07/16/17 20:55 71 155/66 (95) 07/16/17 19:15 Room Air 07/16/17 16:25 60 167/71 (103) 07/16/17 15:30 Room Air 07/16/17 15:15 36.4 62 18 191/79 (116) 96 Room Air 07/16/17 08:30 Room Air 07/16/17 08:00 36.5 73 18 173/87 (115) 98 Room Air Assessment & Plan Assessment: 1.Left foot acute on chronic gouty flare 2.Left foot cellulitis 3.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 . Plan: Continue NSAID Continue IV anbx and consider change to PO anbx for 2 weeks Limited WB L LE - 50% WB UNTIL HE GETS THE BOOT Alternating heat and cold L foot Called to D/W Dr Kelly cannon plan Nonoperative mgmt at this time ESR UP TO 73 FROM 53. URIC ACID NORMAL. WILL DISCUSS WITH YUSUF/KYLIE AND SEE IF THERE'S A CHANGE IN THE PLAN CLARIFIED WB STATUS WITH DR. GOLDBERG- HE CAN WB WITH A HIGH TIDE WALKING BOOT WITH CRUTCHES VS WALKER. 07/16- CRP 10.2 DOWN FROM 11. CLINICALLY IMPROVING. AWAITING BOOT. DISCUSSED CASE WITH DR. DAVIS YESTERDAY EVENING. STILL UNKNOWN ETIOLOGY. MRI CONSISTENT WITH OSTEOMYELITIS, IMPROVING ON IV ABX. NON SURGICAL PER DR. GOLDBERG. 07/17- PATIENT CONTINUES TO IMPROVE. CAN LIKELY BE MANAGED OUTPATIENT AT THIS POINT. OSTEOMYELITIS SEEMS TO BE MOST LIKELY CAUSE BUT CANNOT RULE OUT GOUTY FLARE. WILL CONTINUE IV ABX UNTIL FOLLOW UP WITH DR. GOLDBERG. MAY CONSIDER BIOPSY ? ORTHOPEDICS WILL SIGN OFF. PLEASE RECONSULT IF FURTHER ISSUES.
--- NOTE | 2017-07-17 07:44 | Consultant Recommendations ---
Development Disability Specialist Recommendations Date of Service Jul 17, 2017. Development Disability Specialist Recommendations CONTINUE OUTPATIENT IV ANTIBIOTICS PER MEDICINE/ID RECOMMENDATIONS MAY BE 50% WB WITH WALKER. HIDE TIDE WALKING BOOT ORDERED- ONCE PLACED CAN WBAT WITH WALKER FOLLOW UP WITH DR. GOLDBERG IN 7-14 DAYS FOR FURTHER EVAL/WORK UP. [phone] IF WORSENING SYMPTOMS HE SHOULD CALL THE OFFICE.
[2017-07-17] MEDS ORDERED: INSULIN GLARGINE SOLOSTAR 100 UNITS/ML 3 ML PEN SC SCH (09:00)
[2017-07-17] MEDS: ROSUVASTATIN CALCIUM 20 MG TAB PO SCH (09:39)
[2017-07-17] MEDS: METOPROLOL TARTRATE 25 MG TAB PO SCH (09:39)
[2017-07-17] MEDS: APIXABAN 2.5 MG TAB PO SCH (09:39)
[2017-07-17] MEDS: ALLOPURINOL 100 MG TAB PO SCH (09:39)
[2017-07-17] MEDS: SENNA 8.6 MG TAB PO SCH (09:39)
[2017-07-17] MEDS: ASPIRIN 81 MG ECTAB PO SCH (09:40)
[2017-07-17] MEDS: COLCHICINE 0.6 MG TAB PO SCH (09:40)
[2017-07-17] MEDS: AMLODIPINE BESYLATE 5 MG TAB PO SCH (09:40)
--- NOTE | 2017-07-17 09:41 | Discharge Instructions ---
Discharge Instructions Date of Service Jul 17, 2017. Admission Reason for Admission: Osteomyelitis Discharge Discharge Diagnosis / Problem: Osteomyelitis Discharge Goals Goal(s): Decrease discomfort, Improve function, Increase independence, Improve disease control Activity Recommendations Activity Limitations: resume your previous activity Lifting Limitations: no more than 10 pounds, gradually increase as tolerated Exercise/Sports Limitations: until after follow-up appointment May Resume Sexual Activity: when tolerated Shower/Bathe: no limitations (with assistance) Weightbearing Status: Left partial (50 % weight bearing with walking boot. ) . Instructions / Follow-Up Instructions / Follow-Up You were admitted to [facility] with Left foot pain and diagnosed with left foot osteomyelitis. During your stay here you were treated with intravenous antibiotics and other supportive care. Imaging studies which were completed include X ray of the foot/ankle, MRI of the foot, and were abnormal showing osteomyelitis. - It is very important that you wear the walking boot with any weightbearing activity. You may only bear 50% of your weight on the left foot, while also using your walker. - As a temporary fix, you may use crutches if you do not have the boot accessible to you. For Osteomyelitis: You had a PICC line placed during your admission stay for you to continue intavenous antibiotics as an outpatient. You will continue ertapenum and daptomycin daily infusions for 6 weeks. Home health services will help set this up for you and provide teaching For Blood Pressure: Your blood pressure medications have been adjusted for high BP while in the hospital. Please continue to take these as directed. Follow up with your family physician within 1 -2 weeks for follow up . For Diabetes: Lantus has been increased from 10 U every morning to 20 U in the morning and evening. Check your blood sugars routinely For Blood clot in leg: - Continue taking blood thinner as directed; Take Eliquis 10 mg tonight, and then twice daily for the next 3 days. Starting on 07/21 take 5 mg twice daily for at least the next 6 months. Follow up with your family physician. Appointments: Follow up with your Primary Care Provider within 1 week. Follow up with Dr. Goldberg within 1-2 weeks for your foot; [phone] Call [facility] to schedule a fitting for the walking boot tomorrow during office hours. Current Hospital Diet Patient's current hospital diet: Diabetes Type 2 Diet, AHA Diet (Heart Healthy) Discharge Diet Recommended Diet: AHA Diet (Heart Healthy), Diabetes Type 2 Diet Procedures Procedures Performed: None Pending Studies Studies pending at discharge: no Laboratory Results Hemoglobin A1c Test 06/20/17 07:40 Range/Units Estimated Average Glucose 269 mg/dl Hemoglobin A1c 11.0 H 4.5-5.6 % Lipid Panel Test 06/20/17 07:40 Range/Units Triglycerides Level 115 0-150 mg/dl Cholesterol Level 94 0-200 mg/dl HDL Cholesterol 43 mg/dl Cholesterol/HDL Ratio 2.2 LDL Cholesterol, Calculated 28 mg/dl Medical Emergencies . Who to Call and When: Medical Emergencies: If at any time you feel your situation is an emergency, please call 911 immediately. . Non-Emergent Contact Non-Emergency issues call your: Primary Care Provider Call Non-Emergent contact if: you have a fever, temperature is above 100.5, your pain is not controlled, your pain is worsening, your pain is unusual for you, your pain is concerning you, you have any medication questions . Past History Medical & Surgical History: (1) Osteomyelitis (2) Diabetes mellitus (3) Hyperglycemia . "Provider Documentation" section prepared by Radha Arias. Attending Attestation: Discharge care plan d/w EZEQUIEL Arias; I agree w/ her instructions as outlined. Marquise Gonzalez MD . Horticultural Worker Recommendations Horticultural Worker Recommendations: CONTINUE OUTPATIENT IV ANTIBIOTICS PER MEDICINE/ID RECOMMENDATIONS MAY BE 50% WB WITH WALKER. HIDE TIDE WALKING BOOT ORDERED- ONCE PLACED CAN WBAT WITH WALKER FOLLOW UP WITH DR. GOLDBERG IN 7-14 DAYS FOR FURTHER EVAL/WORK UP. [phone] IF WORSENING SYMPTOMS HE SHOULD CALL THE OFFICE. VTE Core Measure Inpt VTE Proph given/why not?: Other Anticoagulation, T.E.D. Stockings, SCD's
[2017-07-17] MEDS ORDERED: NRV5 PO (09:42)
[2017-07-17] MEDS ORDERED: LPR25 PO (09:42)
[2017-07-17] MEDS: INSULIN ASPART 100 UNITS/ML 3 ML PEN SC SCH ×2 (09:45→12:42)
[2017-07-17] MEDS: ERTAPENEM IV 1,000 MG in SODIUM CHLORIDE 0.9% 50ML 50 ML IV SCH (09:50)
[2017-07-17] MEDS: DAPTOmycin IV 600 MG in SODIUM CHLORIDE 0.9% 50ML 50 ML IV SCH (09:50)
[2017-07-17] MEDS ORDERED: INSDGI SC ×2 (11:09→13:11)
[2017-07-17] MEDS ORDERED: CBCI IV (11:09)
[2017-07-17] MEDS ORDERED: ERTA1INJ IV (11:09)
[2017-07-17] MEDS ORDERED: APIX1TAB3 PO (11:09)
--- NOTE | 2017-07-17 11:23 | Discharge Summary ---
Discharge Summary Date of Service Jul 17, 2017. (Lauren Arias PA-C) Discharge Summary Admission Date: Jul 11, 2017 at 18:14 Discharge Date: Jul 17, 2017 Discharge Disposition: Home with services Principal Diagnosis: Osteomyelitis L foot Immunizations: Have You Had Influenza Vaccine: No History of Tetanus Vaccine?: Yes Tetanus Immunization Date: Aug 05, 2013 History of Pneumococcal: Yes History of Hepatitis B Vaccine: No Procedures: LEFT LOWER EXTREMITY VENOUS DOPPLER CLINICAL HISTORY: Left lower extremity swelling. COMPARISON STUDY: No previous studies for comparison. TECHNIQUE: Sonography of the deep venous system of the left lower extremity was performed. Compression and augmentation were evaluated. FINDINGS: There is no deep venous thrombus within the left common femoral, superficial femoral or popliteal veins. There is minimal age indeterminate thrombus within the left posterior tibial vein. No additional sites of deep venous thrombus are present. IMPRESSION: Minimal thrombus within the left posterior tibial vein. No additional sites of deep venous thrombus. This thrombus is age indeterminate although the appearance favors chronic deep venous thrombus. Electronically signed by: Beny Ruiz M.D. 07/11/2017 6:47 PM Dictated Date/Time: 07/11/2017 6:46 PM The status of this report is Signed. LEFT ANKLE MIN 3 VIEWS ROUTINE, LEFT FOOT MIN 3 VIEWS ROUTINE HISTORY: 76 years-old Male left ankle swelling; eval for pseudogout, etc acute left ankle pain and swelling without reported injury. 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 COMPARISON: Left lower extremity MRI 02/03/2017. TECHNIQUE: 3 views of the left foot and 3 views of the left ankle. FINDINGS: ANKLE: Bones are mildly demineralized. No acute fracture or dislocation identified. There is mild spurring at the plantar calcaneus. Peripheral vascular calcifications are noted. Moderate soft tissue swelling is noted about the ankle with small joint effusion. No erosive arthropathy. There is spurring of the medial and lateral malleoli. FOOT: Erosive changes involving the tarsometatarsal joints are again seen, notably within the third and fourth digits as described on comparison MRI. Moderate diffuse soft tissue swelling of the foot is seen. There also suggested erosive changes along the caudal aspect of the cuboid. Periarticular osteopenia is noted. No chondrocalcinosis is identified. No acute fracture or dislocation. IMPRESSION: 1. No acute fracture or dislocation. 2. Articular erosions of the tarsal metatarsal joints are redemonstrated, better evaluated on comparison MRI 07/06/2017. Moderate soft tissue swelling is seen about the foot and ankle with peripheral vascular disease. 3. No chondrocalcinosis. The above report was generated using voice recognition software. It may contain grammatical, syntax or spelling errors. Electronically signed by: Reginald Pillai M.D. 07/15/2017 5:17 PM Dictated Date/Time: 07/15/2017 5:09 PM The status of this report is Signed. LEFT ANKLE MIN 3 VIEWS ROUTINE, LEFT FOOT MIN 3 VIEWS ROUTINE HISTORY: 76 years-old Male left ankle swelling; eval for pseudogout, etc acute left ankle pain and swelling without reported injury. 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 COMPARISON: Left lower extremity MRI 02/03/2017. TECHNIQUE: 3 views of the left foot and 3 views of the left ankle. FINDINGS: ANKLE: Bones are mildly demineralized. No acute fracture or dislocation identified. There is mild spurring at the plantar calcaneus. Peripheral vascular calcifications are noted. Moderate soft tissue swelling is noted about the ankle with small joint effusion. No erosive arthropathy. There is spurring of the medial and lateral malleoli. FOOT: Erosive changes involving the tarsometatarsal joints are again seen, notably within the third and fourth digits as described on comparison MRI. Moderate diffuse soft tissue swelling of the foot is seen. There also suggested erosive changes along the caudal aspect of the cuboid. Periarticular osteopenia is noted. No chondrocalcinosis is identified. No acute fracture or dislocation. IMPRESSION: 1. No acute fracture or dislocation. 2. Articular erosions of the tarsal metatarsal joints are redemonstrated, better evaluated on comparison MRI 07/06/2017. Moderate soft tissue swelling is seen about the foot and ankle with peripheral vascular disease. 3. No chondrocalcinosis. The above report was generated using voice recognition software. It may contain grammatical, syntax or spelling errors. Electronically signed by: Reginald Pillai M.D. 07/15/2017 5:17 PM Dictated Date/Time: 07/15/2017 5:09 PM The status of this report is Signed. LEFT LOWER EXTREMITY ARTERIAL DOPPLER ULTRASOUND CLINICAL HISTORY: Left foot osteomyelitis. COMPARISON STUDY: No previous studies for comparison. FINDINGS: The left ankle to brachial index measured 0.95 when using posterior tibial artery and 1.02 when using the dorsalis pedis. Right upper extremity blood pressure could not be obtained. There is mild atherosclerotic plaque within the left lower extremity. There is biphasic flow throughout the left lower extremity. No vessel occlusion is identified. The left common femoral, superficial femoral, popliteal, anterior tibial, posterior tibial, peroneal and dorsalis pedis vessels were patent. IMPRESSION: 1. Normal left ankle to brachial index. 2. Mild atherosclerotic plaque within the left lower kidney. Patent vessels. No convincing evidence for a hemodynamically significant stenosis. Electronically signed by: Beny Ruiz M.D. 07/16/2017 2:22 PM Dictated Date/Time: 07/16/2017 2:17 PM The status of this report is Signed. Consultations: Orthotics (Lauren Arias, GARY) Problems/Secondary Diagnoses: 1. chronic-appearing LLE DVT 2. HTN - chronically poorly controlled 3. hyperlipidemia 4. CAD 5. CKD stage 3 6. hypothyroidism 7. suspected element of gout, left foot/ankle 8. uncontrolled T2DM - improving 9. right 2nd finger osteomyelitis 10. diabetic peripheral neuropathy Procedures: echocardiogram: -- Conclusions -- The left ventricle is hyperdynamic. No regional wall motion abnormalities noted. Ejection Fraction = >70 %. There is moderate concentric left ventricular hypertrophy. Grade I diastolic dysfunction, (abnormal relaxation pattern). No obvious valvular vegetation. Consultations: infectious disease - Warren Mendoza MD (Marquise Gonzalez MD) Medication Reconciliation New Medications: Ertapenem Sodium (Invanz) 1 Gm Inj 1 GM IV DAILY for 42 Days, #42 VIAL Amlodipine Besylate (Amlodipine Besylate) 5 Mg Tab 5 MG PO BID for 30 Days, #60 TAB Apixaban (Eliquis) 5 Mg Tab 10 MG PO BID for 3 Days, #120 TAB 1 Refill Take 10 mg twice daily for 3 more days, start taking 5 mg twice daily on 07/21 and continue. Colchicine (Colcrys) 0.6 Mg Tab 0.6 MG PO QAM for 30 Days, #30 TAB 0 Refills for possible gout in the foot Metoprolol Tartrate (Lopressor) 25 Mg Tab 75 MG PO BID for 30 Days, #180 TAB Changed Medications: Insulin Glargine (Lantus) 100 Unit/Ml Inj 20 UNITS SC BID for 30 Days, #60 VIAL (Changed from: QAM) Continued Medications: Acetaminophen (Tylenol) 500 Mg Tab 1000 MG PO Q8H PRN for Pain, TAB Allopurinol (Zyloprim) 100 Mg Tab 100 MG PO DAILY, TAB Aspirin (Aspirin Ec) 81 Mg Tab 81 MG PO DAILY Daptomycin (Cubicin) 500 Mg Vanessa 600 MG IV DAILY for 42 Days, #42 DOSE (This prescription has been renewed) Ergocalciferol (Vitamin D 05348 Unit) 50,000 Unit Cap 74647 UNIT PO MONTHLY, CAP Insulin Aspart (Novolog) 100 Units/Ml Inj 1 DOSE SC AC TAKE 1 DOSE OF INSULIN PER SLIDING SCALE BEFORE MEALS Levothyroxine Sodium (Levothyroxine Sodium) 137 Mcg Tab 137 MCG PO DAILY Rosuvastatin Calcium (Crestor) 40 Mg Tab 40 MG PO DAILY, TAB Senna (Senokot) 8.6 Mg Tab 1 TAB PO DAILY, TAB Tramadol (Ultram) 50 Mg Tab 50 MG PO Q4H PRN for Pain, TAB Discontinued Medications: Insulin Glargine (Lantus) 100 Unit/Ml Inj 100 SC HS, VIAL Levofloxacin (Levaquin) 500 Mg Tab 500 MG PO DAILY Metoprolol Tartrate (Lopressor) (Lopressor) 50 Mg Tab 50 MG PO QAM, TAB Referrals At Discharge Follow up Referrals: Infectious Disease - Within 1 Week with Warren Mendoza MD Orthopedics Referral - Within 1-2 Weeks with Saurabh De La Fuente D.O. Discharge Exam The patient was seen and examined this morning. Pt reports doing well today. His is present at bedside. All their questions and concerns regarding discharge medications changes were addressed. Pt was seen by PT/OT and given crutches to have until he's fitted for a walking boot at [facility]. He had one episode of loose bowel today. C. diff is negative. He denies any other acute complaints. Review of Systems: Constitutional: No fever, No chills, No sweats, No fatigue Eyes: No eye pain, No diplopia Respiratory: No cough, No shortness of breath Cardiovascular: No chest pain, No edema Abdomen: No pain, No vomiting, No diarrhea, No constipation Musculoskeletal: + joint pain, No muscle pain, No swelling Genitourinary - Male: No hematuria, No dysuria Neurologic: No paralysis, No weakness, No numbness/tingling Endocrine: No fatigue Integumentary: No rash, No itch Physical Exam: General Appearance: WD/WN, no apparent distress Eyes: PERRL, EOMI ENT: hearing grossly normal, pharynx normal Neck: supple, no JVD Respiratory/Chest: lungs clear, no respiratory distress, no accessory muscle use Cardiovascular: regular rate, rhythm, no murmur Abdomen / GI: non tender, soft Extremities: no calf tenderness, + pertinent finding (+ mild left pedal edema extending up into the ankle. No edema on the right. ) Neurologic/Psychiatric: alert, normal mood/affect, oriented x 3 Skin: normal color, warm/dry (Lauren Arias, GARY) Hospital Course History of Present Illness Source: patient, spouse ( at bedside), clinic records, hospital records This is a 76 y/o male with a history of DM II, HTN, HLD, CAD, CKD stage III, hypothyroidism, BPH, and gout who presented to the ED on 07/11 with increasing pain and swelling in the left foot. The patient has known osteomyelitis in the left foot that he has been following with Dr. Mendoza as an outpatient for the last 2 months. The patient has failed multiple oral antibiotic therapies. The patient was recently started on daptomycin and PO Levaquin on 07/07. Despite this, he has developed worsening redness, swelling and pain in the left foot. The patient complains of an intermittent 8 or 9 out of 10 sharp pain in the left foot that is worse with walking/weight bearing. He denies any numbness or tingling. The patient also has osteomyelitis in his right second finger, but he states that this has been doing much better and he denies any pain there. The patient denies fevers, chills, sweats, chest pain, palpitations, claudication, cough, wheezing, shortness of breath, nausea, vomiting, abdominal pain, dysuria, hematuria, urinary retention, paralysis, weakness, numbness and tingling. Physical Exam Vital Signs Date Time Temp Pulse Resp B/P (MAP) Pulse Ox O2 Delivery O2 Flow Rate FiO2 07/11/17 17:20 75 20 158/71 97 Room Air 07/11/17 15:49 37.1 72 18 162/66 96 Room Air General appearance: Well-developed, well-nourished, no apparent distress Head: Normocephalic, atraumatic Eyes: Normal inspection, PERRL, EOMI ENT: Normal ENT inspection, hearing grossly normal, pharynx normal Neck: Supple, no JVD, trachea midline Respiratory/Chest: Lungs clear to auscultation, normal breath sounds, no respiratory distress Cardiovascular: Regular rate & rhythm, no gallop, no murmur Abdomen/GI: Normal bowel sounds, non-tender, soft Extremities/Musculoskeletal: +Mild erythema and edema right second digit. Non- tender. Erythema left foot from toes to mid-dorsum. 2+ pitting edema left foot. Dorsum of foot TTP near bases of toes. Cap refill about 3 seconds. Sensation intact. No calf tenderness Neurological/Psych: Alert, normal mood/affect, oriented x 3 Skin: Normal color, warm/dry, no rash Hospital Course: Left Foot Osteomyelitis Most likely infectious etiology versus gout - Ortho on board- Dr. Bloom - pt will follow up with Dr. De La Fuente as outpatient and be fitted for high tide walking boot for left foot as outpatient tomorrow - PT/OT saw pt and fitted him for crutches prior to dc: 50% weight bearing until seen in F/U - Pain has improved - Will continue on Ertapenum and Daptomycin x 6 weeks, PICC line was placed during admission. - Follow up with Dr. De La Fuente- will likely need bone biopsy. - Continue Colchicine and allopurinol. D/C Indocin today - 2d Echo complete * -- Conclusions -- * The left ventricle is hyperdynamic. * No regional wall motion abnormalities noted. * Ejection Fraction = >70 %. * There is moderate concentric left ventricular hypertrophy. * Grade I diastolic dysfunction, (abnormal relaxation pattern). * No obvious valvular vegetation. Right 2nd Finger osteomyelitis -ID Following. Improved on abx. HTN -Metoprolol increased to 75 mg BID, Norvasc increased to 5 mg BID- BP improved today in the 140s-150s DM2 - Uncontrolled chronically, but control while inpatient has been acceptable; pharmacy managing and assistance appreciated. - PT was becoming hypoglycemic on 100 U Lantus HS so regimen has been changed. - -- Continue Lantus 20 U QAM and QPM CAD -No ischemic symptoms at this time. Cont BB, statin, etc. CKD Stage III -Creatinine slightly improved today to 1.5. Hypothyroidism -No change in medication, recheck TSH as outpatient Chronic DVT, Left leg -Eliquis 10mg BID x 7 days, then starting on 9/8 5mg BID thereafter for at least 6 month. It was thought that due to pts increase immobility it would be better to treat. New onset loose stools -C diff negative. Encouraged the patient to eat a yogurt with active cultures in it once daily. Disposition: From home, discharge home with home health services today. Total Time Spent: Greater than 30 minutes This includes examination of the patient, discharge planning, medication reconciliation, and communication with other providers. (Lauren Arias, GARY) Attending Discharge Note & Attestation: Pt seen/examined, chart reviewed, and discharge care plan d/w EZEQUIEL Arias. I agree w/ the zavala components of her discharge documentation. 76yo male with uncontrolled T2DM, HTN, CAD, CKD stage 2-3, and gout who presented with ongoing left foot pain and swelling. He had been treated for presumed osteomyelitis of the left foot with IV/PO antibiotics by Dr. Mendoza as an outpatient for quite some time and despite such his left foot continued to worsen. During this admission he was seen by orthopedics as well as infectious disease. He was continued on broad-spectrum IV antibiotics for the presumed left foot osteomyelitis. He also received NSAIDs for suspected gout of the foot/ankle. With these measures his pain/swelling did improve. Oddly, however, his sed rate/crp worsened during the stay. Despite such he remained afebrile and w/o any leukocytosis. At discharge the plan is to continue treating for suspected osteomyelitis of the left foot with at least 6 weeks of IV antibiotics (ertapenem and daptomycin via RUE PICC line). He will continue on allopurinol and once daily colchicine in the event there is some element of gout in the left foot/ankle. Other issues addressed while here included uncontrolled T2DM and HTN; both issues have been uncontrolled for some time. Lantus was titrated as well as metoprolol & amlodipine. He will f/u with Dr. De La Fuente from orthopedics in 10 days following discharge along with his PCP, Dr. Padilla, and infectious disease, Dr. Mendoza. Lastly, he was found to have an incidental chronic-appearing DVT of the LLE. In light of considerable immobility in the past 2 months this was felt to be recent in development. We elected to place him on systemic anticoagulation in the form of eliquis BID. Recommend at least 3 months of treatment, possibly up to 6 months. Discharge exam - gen - nad neck - no JVD mouth - MMM RUE PICC line clean heart - 1-2/6 NUNO LSB, RRR lungs - CTA b/l abd - soft, NT ext - right foot wnl, pulses 2+ b/l; left foot - scant swelling over dorsum of mid-foot but considerable swelling over metatarsal heads on plantar aspect; there is mild joint synovitis and tenderness of left ankle right 2nd finger mild swelling of PIP Marquise Gonzalez MD (Marquise Gonzalez MD) Discharge Instructions Please refer to the electronic Patient Visit Report (Discharge Instructions) for additional information. (Lauren Arias, MKC) Follow-Up Follow up with your Primary Care Provider within 1 week. Follow up with Dr. De La Fuente with [facility] within 1-2 weeks. (Lauren Arias, EZEQUIEL-C) Additional Copies To Saurabh De La Fuente D.O.; Warren Mendoza MD; Navi Padilla M.D.
[2017-07-17 11:27] VITALS: BP 167/82; PULSE 73; TEMP 37; O2SAT 98
[2017-07-17] MEDS ORDERED: CLC6 PO (13:08)
== END 2017-07-17 13:28 | disposition home health service (06) | DRG 638 ==
LOC: C.EDB 15:31 → C.MSN 18:14 → ENRESERV 18:49
PROVIDERS: ADMIT Hospitalist; ATTEND Internal Medicine
DX: E11.69 Type 2 diabetes mellitus with other specified complication (principal); M86.9 Osteomyelitis, unspecified; L03.116 Cellulitis of left lower limb; I82.542 Chronic embolism and thrombosis of left tibial vein; M10.9 Gout, unspecified; I12.9 Hypertensive chronic kidney disease with stage 1 through stage 4 chronic kidney disease, or unspecified chronic kidney disease; N18.3 Chronic kidney disease, stage 3 (moderate); E11.22 Type 2 diabetes mellitus with diabetic chronic kidney disease; E11.40 Type 2 diabetes mellitus with diabetic neuropathy, unspecified; E11.65 Type 2 diabetes mellitus with hyperglycemia; E78.5 Hyperlipidemia, unspecified; I25.10 Atherosclerotic heart disease of native coronary artery without angina pectoris; G62.9 Polyneuropathy, unspecified; E03.9 Hypothyroidism, unspecified; N40.0 Benign prostatic hyperplasia without lower urinary tract symptoms; R01.1 Cardiac murmur, unspecified; Z79.4 Long term (current) use of insulin; Z79.82 Long term (current) use of aspirin; Z79.899 Other long term (current) drug therapy; Z87.891 Personal history of nicotine dependence

== ENCOUNTER → 2017-07-24 | Outpatient (CLI) | payer BC ==
[~2017-07-24] MED LIST changes: +ALLO100T PO; +APIX1TAB3 PO; +CBCI IV; +CLC6 PO; -DILT120C68 PO; +ERGO500037 PO; +ERTA1INJ IV; -FRS/40 PO; -ISOS30TA35 PO; -ISOS60TA25 PO; -LEVO125T4 PO; +LPR25 PO; -METO-551 PO; +NRV5 PO; -PRAV20TA PO; +ROSU40TA PO; +SENN-61 PO; -SNK PO; +SYN137 PO
[2017-07-24 11:47] LABS: MEAN CELL VOLUME 90.7 fL (80-100); MEAN CORPUSCULAR HEMOGLOBIN 29.6 pg (25-34); MEAN CORPUSCULAR HGB CONC 32.6 g/dl (32-36); MEAN PLATELET VOLUME 9.1 fL (7.4-10.4); PLATELET COUNT 377 K/uL (130-400); RED BLOOD COUNT 4.19 M/uL (4.7-6.1); WHITE BLOOD COUNT 7.04 K/uL (4.8-10.8)
[2017-07-24 11:50] LABS: ALT/SGPT 51 U/L (12-78); AST/SGOT 33 U/L (15-37); BLOOD UREA NITROGEN 32 mg/dl (7-18); BUN/CREATININE RATIO 21.6 (10-20); CALCIUM 8.9 mg/dl (8.5-10.1); CARBON DIOXIDE 27 mmol/L (21-32); CHLORIDE 110 mmol/L (98-107); GLUCOSE 318 mg/dl (70-99); POTASSIUM 4.2 mmol/L (3.5-5.1); SODIUM 142 mmol/L (136-145)
[2017-07-24 11:52] LABS: ALB/GLOB RATIO 0.9 (0.9-2)
[2017-07-24 12:00] LABS: ALKALINE PHOSPHATASE 93 U/L (45-117); BETA-HYDROXYBUTYRATE 0.79 mg/dL (0.2-2.81)
== END | disposition home or self-care (01) ==
LOC: C.LABSPEC 11:27
PROVIDERS: ATTEND Internal Medicine Infectious Disease
DX: M86.9 Osteomyelitis, unspecified (principal)

== ENCOUNTER → 2017-07-27 | Outpatient (CLI) | payer BC ==
[2017-07-27 13:33] LABS: HEMATOCRIT 40.7 % (42-52); MEAN CELL VOLUME 89.3 fL (80-100); MEAN CORPUSCULAR HEMOGLOBIN 29.6 pg (25-34); MEAN CORPUSCULAR HGB CONC 33.2 g/dl (32-36); MEAN PLATELET VOLUME 9.8 fL (7.4-10.4); PLATELET COUNT 330 K/uL (130-400); RED BLOOD COUNT 4.56 M/uL (4.7-6.1)
[2017-07-27 13:57] LABS: URINE PROTIEN/CREAT RATIO 0.5 (0-0.2); URINE TOTAL PROTEIN 38.7 mg/dl (0-11.9)
[2017-07-27 14:08] LABS: ALB/GLOB RATIO 0.9 (0.9-2); ALKALINE PHOSPHATASE 95 U/L (45-117); ALT/SGPT 75 U/L (12-78); AST/SGOT 54 U/L (15-37); BLOOD UREA NITROGEN 43 mg/dl (7-18); CALCIUM 8.9 mg/dl (8.5-10.1); CARBON DIOXIDE 24 mmol/L (21-32); CHLORIDE 104 mmol/L (98-107); GLUCOSE 425 mg/dl (70-99); POTASSIUM 4.4 mmol/L (3.5-5.1); SODIUM 135 mmol/L (136-145); THYROID STIMULATING HORMONE 0.428 uIu/ml (0.300-4.500); URIC ACID 4.5 mg/dl (2.6-7.2)
[2017-07-27 14:20] LABS: BETA-HYDROXYBUTYRATE 1.02 mg/dL (0.2-2.81)
[2017-07-27 14:40] LABS: URINE APPEARANCE CLEAR (CLEAR); URINE BILIRUBIN NEG (NEG); URINE COLOR YELLOW; URINE EPITHELIAL CELL AUTO 0-5 /lpf (0-5); URINE NITRITE NEG (NEG); URINE PH 5.5 (4.5-7.5); URINE SPECIFIC GRAVITY 1.023 (1.000-1.030); UROBILINOGEN NEG (NEG)
[2017-07-27 14:45] LABS: MANUAL MICROSCOPIC REQUIRED? NO; REVIEW REQ? NO
== END | disposition home or self-care (01) ==
LOC: C.LABBC 10:39
PROVIDERS: ATTEND Internal Medicine Nephrology
DX: E11.40 Type 2 diabetes mellitus with diabetic neuropathy, unspecified (principal); I15.0 Renovascular hypertension; N18.3 Chronic kidney disease, stage 3 (moderate); E55.9 Vitamin D deficiency, unspecified; I12.9 Hypertensive chronic kidney disease with stage 1 through stage 4 chronic kidney disease, or unspecified chronic kidney disease; E03.9 Hypothyroidism, unspecified

== ENCOUNTER → 2017-07-31 | Outpatient (CLI) | payer BC ==
[2017-07-31 15:08] LABS: HEMATOCRIT 37.3 % (42-52); MEAN CELL VOLUME 90.1 fL (80-100); MEAN CORPUSCULAR HGB CONC 32.2 g/dl (32-36); MEAN PLATELET VOLUME 10.2 fL (7.4-10.4); PLATELET COUNT 279 K/uL (130-400); RED BLOOD COUNT 4.14 M/uL (4.7-6.1); WHITE BLOOD COUNT 8.76 K/uL (4.8-10.8)
[2017-07-31 15:18] LABS: ALT/SGPT 53 U/L (12-78); AST/SGOT 34 U/L (15-37); BLOOD UREA NITROGEN 37 mg/dl (7-18); BUN/CREATININE RATIO 19.7 (10-20); CALCIUM 8.8 mg/dl (8.5-10.1); CARBON DIOXIDE 25 mmol/L (21-32); CHLORIDE 108 mmol/L (98-107); GLUCOSE 219 mg/dl (70-99); POTASSIUM 4.6 mmol/L (3.5-5.1); SODIUM 140 mmol/L (136-145)
[2017-07-31 15:20] LABS: ALB/GLOB RATIO 0.9 (0.9-2); ALKALINE PHOSPHATASE 94 U/L (45-117)
== END | disposition home or self-care (01) ==
LOC: C.LABSPEC 14:29
PROVIDERS: ATTEND Internal Medicine Infectious Disease
DX: M86.9 Osteomyelitis, unspecified (principal)

== ENCOUNTER → 2017-08-07 | Outpatient (CLI) | payer BC ==
--- NOTE | 2017-08-07 10:04 | DIAGNOSTIC IMAGING REPORT ---
RIGHT INDEX FINGER 3 VIEWS HISTORY: Right index finger swelling. M86.9 Osteomyelitis of finger of right [id number] COMPARISON: None. FINDINGS: There is no fracture or dislocation. Soft tissue swelling most pronounced at the PIP joint. No underlying bony destruction to suggest osteomyelitis. Mild osteoarthritis within the DIP and PIP joints. No radiopaque foreign bodies. IMPRESSION: Soft tissue swelling within the right index finger most pronounced at the PIP joint. No radiographic evidence for osteomyelitis at this time. Electronically signed by: Petey Esparza M.D. 08/07/2017 10:03 AM Dictated Date/Time: 08/07/2017 10:01 AM
--- NOTE | 2017-08-07 10:10 | DIAGNOSTIC IMAGING REPORT ---
L FOOT MIN 3 VIEWS ROUTINE CLINICAL HISTORY: 76 years-old Male presenting with M86.9 Osteomyelitis of [id number]. TECHNIQUE: Frontal, oblique, and lateral views of the left foot were obtained. COMPARISON: 07/15/2017. FINDINGS: No gross evidence of osseous destruction or periosteal reaction to suggest radiographic findings of osteomyelitis. Subtle erosions at the bases of the proximal phalanges at the tarsometatarsal articulations better demonstrated on recent MR. Diffuse soft tissue swelling throughout the foot is suggested. No gross evidence of soft tissue emphysema. No acute fracture or malalignment. No significant degenerative change. The joint space loss. No radiopaque foreign body. IMPRESSION: No radiographic evidence of osteomyelitis. No change in subtle erosions at the tarsometatarsal articulations. No acute osseous injury. Electronically signed by: Clifford Rodríguez M.D. 08/07/2017 10:09 AM Dictated Date/Time: 08/07/2017 10:06 AM
== END | disposition home or self-care (01) ==
LOC: C.RAD1850 09:30
PROVIDERS: ATTEND Internal Medicine Infectious Disease
DX: M86.9 Osteomyelitis, unspecified (principal)

== ENCOUNTER → 2017-08-07 | Outpatient (CLI) | payer BC ==
[2017-08-07 14:39] LABS: HEMATOCRIT 35.8 % (42-52); MEAN CELL VOLUME 89.7 fL (80-100); MEAN CORPUSCULAR HEMOGLOBIN 29.3 pg (25-34); MEAN CORPUSCULAR HGB CONC 32.7 g/dl (32-36); MEAN PLATELET VOLUME 9.8 fL (7.4-10.4); PLATELET COUNT 311 K/uL (130-400); RED BLOOD COUNT 3.99 M/uL (4.7-6.1); WHITE BLOOD COUNT 8.29 K/uL (4.8-10.8)
[2017-08-07 14:47] LABS: ALT/SGPT 31 U/L (12-78); AST/SGOT 24 U/L (15-37); BLOOD UREA NITROGEN 39 mg/dl (7-18); BUN/CREATININE RATIO 21.7 (10-20); CALCIUM 8.9 mg/dl (8.5-10.1); CARBON DIOXIDE 22 mmol/L (21-32); CHLORIDE 110 mmol/L (98-107); GLUCOSE 79 mg/dl (70-99); POTASSIUM 4.2 mmol/L (3.5-5.1); SODIUM 141 mmol/L (136-145)
[2017-08-07 14:50] LABS: ALB/GLOB RATIO 0.8 (0.9-2); ALKALINE PHOSPHATASE 94 U/L (45-117)
== END | disposition home or self-care (01) ==
LOC: C.LABSPEC 13:52
PROVIDERS: ATTEND Internal Medicine Infectious Disease
DX: M86.9 Osteomyelitis, unspecified (principal)

== ENCOUNTER → 2017-08-14 | Outpatient (CLI) | payer BC ==
[2017-08-14 10:28] LABS: HEMATOCRIT 36.2 % (42-52); MEAN CELL VOLUME 86.4 fL (80-100); MEAN CORPUSCULAR HEMOGLOBIN 29.1 pg (25-34); MEAN CORPUSCULAR HGB CONC 33.7 g/dl (32-36); MEAN PLATELET VOLUME 9.2 fL (7.4-10.4); PLATELET COUNT 434 K/uL (130-400); RED BLOOD COUNT 4.19 M/uL (4.7-6.1); WHITE BLOOD COUNT 9.88 K/uL (4.8-10.8)
[2017-08-14 10:48] LABS: ALB/GLOB RATIO 0.9 (0.9-2); ALKALINE PHOSPHATASE 92 U/L (45-117); ALT/SGPT 48 U/L (12-78); AST/SGOT 30 U/L (15-37); BLOOD UREA NITROGEN 49 mg/dl (7-18); BUN/CREATININE RATIO 27.2 (10-20); CALCIUM 9.3 mg/dl (8.5-10.1); CARBON DIOXIDE 21 mmol/L (21-32); CHLORIDE 105 mmol/L (98-107); GLUCOSE 368 mg/dl (70-99); POTASSIUM 4.6 mmol/L (3.5-5.1); SODIUM 136 mmol/L (136-145)
== END | disposition home or self-care (01) ==
LOC: C.LABSPEC 10:18
PROVIDERS: ATTEND Internal Medicine Infectious Disease
DX: M86.9 Osteomyelitis, unspecified (principal)

== ENCOUNTER → 2017-08-16 | Outpatient (CLI) | payer BC | END | disposition home or self-care (01) | LOC: C.LABBC 08:24 | PROVIDERS: ATTEND Internal Medicine | DX: E11.40 Type 2 diabetes mellitus with diabetic neuropathy, unspecified (principal); E11.65 Type 2 diabetes mellitus with hyperglycemia ==

== ENCOUNTER → 2017-08-17 | Outpatient (CLI) | payer BC | END | disposition home or self-care (01) | LOC: C.LAB1850 16:25 | PROVIDERS: ATTEND Internal Medicine Rheumatology | DX: E11.42 Type 2 diabetes mellitus with diabetic polyneuropathy (principal); M10.9 Gout, unspecified; M25.572 Pain in left ankle and joints of left foot; L03.116 Cellulitis of left lower limb; M86.9 Osteomyelitis, unspecified ==

== ENCOUNTER 2017-09-03 16:14 | Emergency (ER) | payer BC ==
[~2017-09-03] VITALS: Ht 193 cm; Wt 107.5 kg
[~2017-09-03 16:14] MED LIST changes: -ERTA1INJ IV
[2017-09-03 16:51] VITALS: Ht 193 cm; Wt 107.5 kg
[2017-09-03] MEDS ORDERED: SODIUM CHLORIDE 0.9% 1000ML 1,000 ML IV STA (16:59)
[2017-09-03] MEDS ORDERED: ONDANSETRON INJ 2 MG/ML 2 ML VIAL IV STA (16:59)
[2017-09-03] MEDS ORDERED: ERTAPENEM 1 GM ADDVIAL IV ONE (17:30)
--- NOTE | 2017-09-03 17:31 | DIAGNOSTIC IMAGING REPORT ---
CHEST ONE VIEW PORTABLE CLINICAL HISTORY: Pain, radiating to the abdomen COMPARISON STUDY: 02/23/2016 FINDINGS: The heart is the upper limits of normal in size. There is no failure. There is no lobar consolidation. Increased basal markings 1. Nonspecific are likely atelectatic. There are no significant pleural effusions.[ IMPRESSION: Mild bibasilar opacities, likely atelectatic. No evidence of lobar consolidation. No evidence of failure. Electronically signed by: Ascencion Muñoz M.D. 09/03/2017 5:30 PM Dictated Date/Time: 09/03/2017 5:29 PM
--- NOTE | 2017-09-03 17:34 | DIAGNOSTIC IMAGING REPORT ---
L FOOT MIN 3 VIEWS ROUTINE CLINICAL HISTORY: Soft tissue swelling. Increased warmth. Possible osteomyelitis. COMPARISON: 08/07/2017 DISCUSSION: The bones are osteopenic. No acute fractures are visualized. There is a plantar calcaneal spur. There is a small ossicle adjacent medial malleolus. There are degenerative changes present within the midfoot. Bony erosions are evident. IMPRESSION: 1. No acute fractures 2. 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 3. No conventional radiographic evidence of acute osteomyelitis Electronically signed by: Ascencion Muñoz M.D. 09/03/2017 5:33 PM Dictated Date/Time: 09/03/2017 5:31 PM
[2017-09-03] MEDS ORDERED: INSDGI SC ×2 (17:44)
[2017-09-03] MEDS ORDERED: APIX1TAB3 PO (17:44)
[2017-09-03 18:01] LABS: URINE APPEARANCE CLOUDY (CLEAR); URINE BILIRUBIN NEG (NEG); URINE COLOR DK YELLOW; URINE NITRITE POS (NEG); URINE SPECIFIC GRAVITY 1.021 (1.000-1.030); UROBILINOGEN NEG (NEG); ZZUR CULT IF INDIC CLEAN CATCH YES
[2017-09-03 18:07] LABS: MANUAL MICROSCOPIC REQUIRED? NO; REVIEW REQ? NO
[2017-09-03 18:08] LABS: BASO % 0.2 %; BASO ABS # 0.02 K/uL (0-0.2); COMPLETE YES; HEMATOCRIT 37.1 % (42-52); IG% 0.2 %; LYMPH % 13.6 %; LYMPH ABS # 1.43 K/uL (1.2-3.4); MEAN CELL VOLUME 87.7 fL (80-100); MEAN CORPUSCULAR HEMOGLOBIN 29.1 pg (25-34); MEAN CORPUSCULAR HGB CONC 33.2 g/dl (32-36); MEAN PLATELET VOLUME 9.7 fL (7.4-10.4); PLATELET COUNT 119 K/uL (130-400); RED BLOOD COUNT 4.23 M/uL (4.7-6.1)
[2017-09-03 18:28] LABS: BUN/CREATININE RATIO 23.2 (10-20); CALCIUM 8.8 mg/dl (8.5-10.1); CREATININE 2.01 mg/dl (0.60-1.40); POTASSIUM 4.2 mmol/L (3.5-5.1)
[2017-09-03 18:38] LABS: BETA-HYDROXYBUTYRATE 1.69 mg/dL (0.2-2.81)
[2017-09-03] MEDS ORDERED: ONDA4TAB10 SL (20:13)
[2017-09-03] MEDS ORDERED: LEVOFLOXACIN 250 MG TAB PO STA (20:13)
[2017-09-03] MEDS ORDERED: LEVO-366 PO (20:13)
--- NOTE | 2017-09-03 20:13 | EMERGENCY ROOM VISIT NOTE ---
History Report prepared by Stevenson: Brenda Lal Under the Supervision of: Dr. Travis De La O D.O. First contact with patient: 16:59 Chief Complaint: VOMITING Stated Complaint: FEVER, VOMITING Nursing Triage Summary: patient to ED via triage for N/V since yesterday, states "its been coming and going, I went to [facility]gent[facility] they sent me over here, they said my temperature was high." History of Present Illness The patient is a 76 year old male who presents to the Emergency Room with complaints of intermittent nausea and vomiting that started two hours ago. The patient rates his pain a 6/10 in severity. The patient states that he also has a fever that started last night. He notes that his fever was 101.7 when taken two hours ago. He reports he went to urgent care before coming to the ED and they sent him to the ED for further evaluation. The patient states that he has also been experiencing chills, cough, and a runny nose. The patient notes that three months ago, he had severe swelling in his left foot that they were unsure how to treat it. He was given IV and oral antibiotics. The patient reports that they suspected it was gout or a bone infection. He reports that he had a PICC line taken out two weeks ago. Source of History: patient Onset: Two hours ago Position: other (global) Symptom Intensity: 6/10 Timing: intermittent Associated Symptoms: + fevers, + chills, + cough Note: The patient denies having a runny nose. Review of Systems See HPI for pertinent positives & negatives. A total of 10 systems reviewed and were otherwise negative. Past Medical & Surgical Medical Problems: (1) Diabetes mellitus Surgical Problems: (1) Post-operative state Family History Diabetes mellitus Heart disease Hypertension Social History Smoking Status: Former Smoker Alcohol Use: none Drug Use: none Marital Status: Housing Status: lives with family Occupation Status: retired Current/Historical Medications Scheduled Allopurinol (Zyloprim), 100 MG PO DAILY Amlodipine Besylate (Amlodipine Besylate), 5 MG PO BID Apixaban (Eliquis), 5 MG PO DAILY Aspirin (Aspirin Ec), 81 MG PO DAILY Colchicine (Colcrys), 0.6 MG PO QAM Ergocalciferol (Vitamin D 99611 Unit), 50,000 UNIT PO MONTHLY Insulin Aspart (Novolog), 1 DOSE SC AC Insulin Glargine (Lantus), 30 UNITS SC QAM Insulin Glargine (Lantus), 26 UNITS SC QPM Levofloxacin (Levaquin), 500 MG PO DAILY Levothyroxine Sodium (Levothyroxine Sodium), 137 MCG PO DAILY Metoprolol Tartrate (Lopressor), 75 MG PO BID Ondasetron Odt (Zofran Odt), 4 MG SL Q6H Rosuvastatin Calcium (Crestor), 40 MG PO DAILY Scheduled PRN Acetaminophen (Tylenol), 1,000 MG PO Q8H PRN for Pain Tramadol (Ultram), 50 MG PO Q4H PRN for Pain Allergies Coded Allergies: No Known Allergies (Verified , 09/03/17) Physical Exam Vital Signs Date Time Temp Pulse Resp B/P (MAP) Pulse Ox O2 Delivery O2 Flow Rate FiO2 09/03/17 20:10 72 145/47 93 Room Air 09/03/17 18:18 38.1 75 186/74 93 Room Air 09/03/17 16:51 37.1 76 20 115/67 98 Room Air Physical Exam CONSTITUTIONAL/VITAL SIGNS: Reviewed / noted above. GENERAL: Non-toxic in appearance. INTEGUMENTARY: Warm, dry, and [place]. HEAD: Normocephalic. EYES: without scleral icterus or trauma. ENT/OROPHARYNX: clear and moist. LYMPHADENOPATHY/NECK: Is supple without lymphadenopathy or meningismus. RESPIRATORY: Lungs clear and equal. CARDIOVASCULAR: Regular rate and rhythm. GI/ABDOMEN: Soft and nontender. No organomegaly or pulsatile mass. No rebound or guarding. Normal bowel sounds. EXTREMITIES: Warm and well perfused. Left foot reveals mild swelling, increased warmth, and hyperemia to the plantar aspect of the foot. BACK: No CVA tenderness. NEUROLOGICAL: Intact without focal deficits. PSYCHIATRIC: normal affect. MUSCULOSKELETAL: Normally developed with good muscle tone. Medical Decision & Procedures ER Provider Diagnostic Interpretation: Radiology results as stated below per my review and radiologist interpretation: CHEST ONE VIEW PORTABLE CLINICAL HISTORY: Pain, radiating to the abdomen COMPARISON STUDY: 02/23/2016 FINDINGS: The heart is the upper limits of normal in size. There is no failure. There is no lobar consolidation. Increased basal markings 1. Nonspecific are likely atelectatic. There are no significant pleural effusions.[ IMPRESSION: Mild bibasilar opacities, likely atelectatic. No evidence of lobar consolidation. No evidence of failure. Electronically signed by: Ascencion Muñoz M.D. 09/03/2017 5:30 PM Dictated Date/Time: 09/03/2017 5:29 PM. L FOOT MIN 3 VIEWS ROUTINE CLINICAL HISTORY: Soft tissue swelling. Increased warmth. Possible osteomyelitis. COMPARISON: 08/07/2017 DISCUSSION: The bones are osteopenic. No acute fractures are visualized. There is a plantar calcaneal spur. There is a small ossicle adjacent medial malleolus. There are degenerative changes present within the midfoot. Bony erosions are evident. IMPRESSION: 1. No acute fractures 2. 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 3. No conventional radiographic evidence of acute osteomyelitis Electronically signed by: Ascencion Muñoz M.D. 09/03/2017 5:33 PM Dictated Date/Time: 09/03/2017 5:31 PM Laboratory Results 09/03/17 17:40 Red Blood Count 4.23, Mean Corpuscular Volume 87.7, Mean Corpuscular Hemoglobin 29.1, Mean Corpuscular Hemoglobin Concent 33.2, Mean Platelet Volume 9.7, Neutrophils (%) (Auto) 76.0, Lymphocytes (%) (Auto) 13.6, Monocytes (%) (Auto) 9.0, Eosinophils (%) (Auto) 1.0, Basophils (%) (Auto) 0.2, Neutrophils # (Auto) 7.98, Lymphocytes # (Auto) 1.43, Monocytes # (Auto) 0.94, Eosinophils # (Auto) 0.11, Basophils # (Auto) 0.02 09/03/17 17:40 Test 09/03/17 17:30 09/03/17 17:40 09/03/17 17:45 Influenza Type A Antigen Neg for Influ A (NEG) Influenza Type B Antigen Neg for Influ B (NEG) White Blood Count 10.50 K/uL (4.8-10.8) Red Blood Count 4.23 M/uL (4.7-6.1) Hemoglobin 12.3 g/dL (14.0-18.0) Hematocrit 37.1 % (42-52) Mean Corpuscular Volume 87.7 fL (80-100) Mean Corpuscular Hemoglobin 29.1 pg (25-34) Mean Corpuscular Hemoglobin Concent 33.2 g/dl (32-36) Platelet Count 119 K/uL (130-400) Mean Platelet Volume 9.7 fL (7.4-10.4) Neutrophils (%) (Auto) 76.0 % Lymphocytes (%) (Auto) 13.6 % Monocytes (%) (Auto) 9.0 % Eosinophils (%) (Auto) 1.0 % Basophils (%) (Auto) 0.2 % Neutrophils # (Auto) 7.98 K/uL (1.4-6.5) Lymphocytes # (Auto) 1.43 K/uL (1.2-3.4) Monocytes # (Auto) 0.94 K/uL (0.11-0.59) Eosinophils # (Auto) 0.11 K/uL (0-0.5) Basophils # (Auto) 0.02 K/uL (0-0.2) RDW Standard Deviation 52.1 fL (36.4-46.3) RDW Coefficient of Variation 16.2 % (11.5-14.5) Immature Granulocyte % (Auto) 0.2 % Immature Granulocyte # (Auto) 0.02 K/uL (0.00-0.02) Anion Gap 7.0 mmol/L (3-11) Est Creatinine Clear Calc Drug Dose 41.4 ml/min Estimated GFR () 36.0 Estimated GFR (Non- 31.1 BUN/Creatinine Ratio 23.2 (10-20) Calcium Level 8.8 mg/dl (8.5-10.1) Total Bilirubin 1.8 mg/dl (0.2-1) Direct Bilirubin 0.4 mg/dl (0-0.2) Aspartate Amino Transf (AST/SGOT) 16 U/L (15-37) Alanine Aminotransferase (ALT/SGPT) 22 U/L (12-78) Alkaline Phosphatase 89 U/L (45-117) Total Protein 6.6 gm/dl (6.4-8.2) Albumin 3.2 gm/dl (3.4-5.0) Lipase 163 U/L (73-393) Beta-Hydroxybutyric Acid 1.69 mg/dL (0.2-2.81) Urine Color DK YELLOW Urine Appearance CLOUDY (CLEAR) Urine pH 5.0 (4.5-7.5) Urine Specific [place] 1.021 (1.000-1.030) Urine Protein 2+ (NEG) Urine Glucose (UA) 1+ (NEG) Urine Ketones NEG (NEG) Urine Occult Blood 2+ (NEG) Urine Nitrite POS (NEG) Urine Bilirubin NEG (NEG) Urine Urobilinogen NEG (NEG) Urine Leukocyte Esterase MODERATE (NEG) Urine WBC (Auto) >30 /hpf (0-5) Urine RBC (Auto) 0-4 /hpf (0-4) Urine Hyaline Casts (Auto) 1-5 /lpf (0-5) Urine Epithelial Cells (Auto) 5-10 /lpf (0-5) Urine Bacteria (Auto) 4+ (NEG) Laboratory results as stated above per my review. Medications Administered Medications (Trade) Dose Ordered Sig/Erik Route Start Time Stop Time Status Last Admin Dose Admin Sodium Chloride 1,000 ml @ 250 mls/hr Q4H STAT IV 09/03/17 16:59 09/03/17 20:58 09/03/17 18:11 250 MLS/HR Ondansetron HCl (Zofran Inj) 4 mg NOW STAT IV 09/03/17 16:59 09/03/17 17:02 DC 09/03/17 18:09 4 MG Ertapenem (Invanz Iv) 1 gm ONE ONCE IV 09/03/17 17:30 09/03/17 17:31 DC 09/03/17 18:11 1 GM ECG Indication: vomiting Rate (beats per minute): 75 Rhythm: normal sinus Findings: RBBB, no acute ischemic change, no ectopy ED Course 1655: Previous medical records were reviewed. The patient was evaluated in room B9. A complete history and physical examination was performed. 1659: Zofran Inj 4 mg IV, Sodium Chloride 1000 ml @ 250 mls/hr IV. 1730: Invanz Iv 1 gm IV. 2012: Levaquin Tab 500 mg PO. 2016: On reevaluation, the patient is resting comfortably. I discussed the results and findings with the patient. He verbalized agreement of the treatment plan. He was discharged home. Medical Decision Differential includes viral illness, influenza, streptococcal pharyngitis, meningitis, pneumonia, sinusitis, UTI, pyelonephritis, otitis media. Left foot infection. This is a 76-year-old male who presents to the ED with a chief complaint of fever and vomiting. The patient symptoms started last night. He had some chills and subjective fevers last night. Today he had a fever of 101.7 at home. The patient also developed vomiting about 2 hours prior to his arrival here. He was seen at urgent care and sent over here for evaluation. He is afebrile here and has not taken antipyretics. The patient does have a history of osteomyelitis of the left foot for which he was treated with Invanz for 42 days starting late June. This has been discontinued about 2 weeks ago. The patient denies any other significant symptoms other than the fever and the vomiting. He only reports a very mild headache and possibly a slight cough. His exam was unremarkable with exception of a warm swollen left foot compared to the right foot. There is some erythema around the left great toe and the plantar surface of the left foot. Vital signs here were normal. EKG shows a normal sinus rhythm. CBC is unremarkable. BUN is 47 and creatinine is 2. This is near his baseline from previous labs. His glucose is 325. This has also been elevated in the past. Urine is suggestive of an infection. Flu swab was negative. Chest x-ray did not show acute disease. X-ray of the foot did not show any evidence of acute osteomyelitis. The patient was treated with IV fluids, IV Zofran and Invanz 1 g IV. He will be discharged on Levaquin and Zofran. Medication Reconcilliation Current Medication List: was personally reviewed by me Blood Pressure Screening Patient's blood pressure: Normal blood pressure Impression Primary Impression: UTI (urinary tract infection) Additional Impression: Vomiting Scribe Attestation The scribe's documentation has been prepared under my direction and personally reviewed by me in its entirety. I confirm that the note above accurately reflects all work, treatment, procedures, and medical decision making performed by me. Departure Information Dispostion Home / Self-Care Prescriptions Ondasetron Odt (ZOFRAN ODT) 4 Mg Tab 4 MG SL Q6H for Nausea, #15 TAB Prov: Travis De La O D.O. 09/03/17 Levofloxacin (Levaquin) 500 Mg Tab 500 MG PO DAILY for 7 Days, #7 TAB Prov: Travis De La O D.O. 09/03/17 Referrals No Doctor, Assigned (PCP) Patient Instructions [facility], UTI Additional Instructions Levaquin as prescribed. Zofran: Allow one tablet to dissolve under the tongue every 6 hours as needed for nausea or vomiting. Follow-up with your doctor for further care and evaluation in 1-2 days. Return to the emergency department for worsening or new symptoms or any concerns. You have been examined and treated today on an emergency basis only. This is not a substitute for, or an effort to provide, complete comprehensive medical care. It is impossible to recognize and treat all injuries or illnesses in a single emergency department visit. It is therefore important that you follow up closely with your doctor. Call as soon as possible for an appointment. Problem Qualifiers
[2017-09-03 21:02] VITALS: BP 132/74; PULSE 75; TEMP 37.4; O2SAT 94
--- NOTE | 2017-09-05 13:19 | Pharmacy Progress Note ---
ED Pharmacist Culture FollowUp Date of Service: Sep 05, 2017. Patient was sent home with a prescription for levofloxacin, which should cover the enterobacter growing from the patient's urine culture.
[2017-09-17] MEDS ORDERED: TRAM-10 PO (15:23)
[2017-09-17] MEDS ORDERED: LCTX PO (15:23)
[2017-09-17] MEDS ORDERED: FLM4 PO (15:23)
[2017-09-17] MEDS ORDERED: INSDGIPEN SC (15:23)
[2017-09-17] MEDS ORDERED: LVQ750 PO (15:23)
[2017-09-17] MEDS ORDERED: ELQ25 PO (15:23)
[2017-09-17] MEDS ORDERED: MRLP17X PO (15:23)
== END 2017-09-03 21:03 | disposition home or self-care (01) ==
LOC: C.EDB 16:15
DX: N39.0 Urinary tract infection, site not specified (principal); R11.10 Vomiting, unspecified; E11.9 Type 2 diabetes mellitus without complications; Z83.3 Family history of diabetes mellitus; Z82.49 Family history of ischemic heart disease and other diseases of the circulatory system; Z87.891 Personal history of nicotine dependence; Z79.82 Long term (current) use of aspirin; Z79.4 Long term (current) use of insulin

== ENCOUNTER 2017-09-11 20:49 | Emergency (ER) | payer BC ==
[~2017-09-11] VITALS: Ht 193 cm; Wt 108.2 kg
[~2017-09-11 20:49] MED LIST changes: -CBCI IV; +LEVO-366 PO; +ONDA4TAB10 SL; -SENN-61 PO
[2017-09-11 20:53] VITALS: Ht 193 cm; Wt 108.2 kg
[2017-09-11] MEDS ORDERED: SODIUM CHLORIDE 0.9% 500ML 500 ML IV ONE (21:24)
[2017-09-11] MEDS ORDERED: ACETAMINOPHEN 500 MG TAB PO STA (21:24)
--- NOTE | 2017-09-11 22:03 | DIAGNOSTIC IMAGING REPORT ---
CHEST ONE VIEW PORTABLE CLINICAL HISTORY: Fever. Sepsis. COMPARISON STUDY: Chest radiograph September 03, 2017. FINDINGS: Lung volumes are normal. Linear left basilar opacity is suggestive of atelectasis. No consolidation is identified and there is no evidence of pulmonary edema. Cardiomediastinal silhouette is normal. IMPRESSION: 1. Mild left basilar opacity. Atelectasis is favored. Pneumonia could appear similar although is considered less likely. 2. No evidence of pulmonary edema. Electronically signed by: Beny Ruiz M.D. 09/11/2017 10:02 PM Dictated Date/Time: 09/11/2017 10:00 PM
[2017-09-11 22:15] LABS: BASO % 0.4 %; BASO ABS # 0.04 K/uL (0-0.2); COMPLETE YES; EOS % 2.8 %; HEMATOCRIT 37.8 % (42-52); IG% 1.2 %; LYMPH % 24.7 %; LYMPH ABS # 2.78 K/uL (1.2-3.4); MEAN CELL VOLUME 88.5 fL (80-100); MEAN CORPUSCULAR HGB CONC 32.8 g/dl (32-36); MONO % 5.4 %; NEUT % 65.5 %; PLATELET COUNT 349 K/uL (130-400); RED BLOOD COUNT 4.27 M/uL (4.7-6.1); WHITE BLOOD COUNT 11.27 K/uL (4.8-10.8)
[2017-09-11 22:27] LABS: PARTIAL THROMBOPLASTIN RATIO 1.4; PROTHROMBIN TIME (PATIENT) 10.9 SECONDS (9.0-12.0)
[2017-09-11 22:27] LABS: MANUAL MICROSCOPIC REQUIRED? NO; REVIEW REQ? NO; URINE APPEARANCE CLEAR (CLEAR); URINE BILIRUBIN NEG (NEG); URINE COLOR YELLOW; URINE EPITHELIAL CELL AUTO 0-5 /lpf (0-5); URINE NITRITE NEG (NEG); URINE SPECIFIC GRAVITY 1.017 (1.000-1.030); UROBILINOGEN NEG (NEG)
[2017-09-11 22:33] LABS: BUN/CREATININE RATIO 16.3 (10-20); CREATININE 1.69 mg/dl (0.60-1.40); POTASSIUM 4.2 mmol/L (3.5-5.1)
[2017-09-11] MEDS ORDERED: ACETAMINOPHEN 325 MG TAB PO STA (23:05)
[2017-09-11] MEDS ORDERED: IBUPROFEN 200 MG TAB PO STA (23:13)
[2017-09-11] MEDS ORDERED: AZITHROMYCIN 250 MG TAB PO ONE (23:15)
[2017-09-11] MEDS ORDERED: AMOXICILLIN/CLAVULANATE TAB 875 MG TAB PO ONE (23:15)
[2017-09-11] MEDS ORDERED: AMOX875T PO (23:37)
[2017-09-11] MEDS ORDERED: AZIT250T PO (23:37)
--- NOTE | 2017-09-11 23:39 | EMERGENCY ROOM VISIT NOTE ---
History Report prepared by Stevenson: Liang Huerta Under the Supervision of: Dr. Chema Kothari M.D. First contact with patient: 20:58 Chief Complaint: FEVER Stated Complaint: HIGH FEVER,URINE INCONT WEAK History of Present Illness The patient is a 76 year old white male with a past medical history of HTN, hyperlipidemia, hypothyroid, gout, and insulin dependent diabetes who presents to the ED with a cc of persistent fevers beginning today. Was recently on antibiotics for a UTI. Positive generalized weakness, headache, urinary symptoms. Symptoms similar to previous UTI. On Eliquis for DVT. Negative back pain. Notes that his blood sugars have been running in the high 100's recently. Had nausea, vomiting and abdominal pain last week but none now. Source of History: patient Onset: Today Quality: other (fevers) Timing: other (persistent) Associated Symptoms: + headache, + urinary symptoms, + weakness (generalized ), No back pain Review of Systems See HPI for pertinent positives and negatives. A total of ten systems were reviewed and were otherwise negative. Past Medical & Surgical Medical Problems: (1) Diabetes mellitus Surgical Problems: (1) Post-operative state Family History Diabetes mellitus Heart disease Hypertension Social History Smoking Status: Former Smoker Alcohol Use: none Drug Use: none Marital Status: Housing Status: lives with family Occupation Status: retired Current/Historical Medications Scheduled Allopurinol (Zyloprim), 100 MG PO DAILY Amlodipine Besylate (Amlodipine Besylate), 5 MG PO BID Amoxicillin & Pot Clavulanate (Augmentin 875-125 mg), 875 MG PO BID Apixaban (Eliquis), 5 MG PO DAILY Aspirin (Aspirin Ec), 81 MG PO DAILY Azithromycin (Zithromax), 250 MG PO DAILY Colchicine (Colcrys), 0.6 MG PO QAM Ergocalciferol (Vitamin D 24385 Unit), 50,000 UNIT PO MONTHLY Insulin Aspart (Novolog), 1 DOSE SC AC Insulin Glargine (Lantus), 30 UNITS SC QAM Insulin Glargine (Lantus), 26 UNITS SC QPM Levothyroxine Sodium (Levothyroxine Sodium), 137 MCG PO DAILY Metoprolol Tartrate (Lopressor), 75 MG PO BID Ondasetron Odt (Zofran Odt), 4 MG SL Q6H Rosuvastatin Calcium (Crestor), 40 MG PO DAILY Scheduled PRN Acetaminophen (Tylenol), 1,000 MG PO Q8H PRN for Pain Tramadol (Ultram), 50 MG PO Q4H PRN for Pain Allergies Coded Allergies: No Known Allergies (Verified , 09/03/17) Physical Exam Vital Signs Date Time Temp Pulse Resp B/P (MAP) Pulse Ox O2 Delivery O2 Flow Rate FiO2 09/12/17 00:00 38.1 84 18 160/65 93 09/11/17 22:58 38.5 85 18 165/62 94 Room Air 09/11/17 22:12 86 09/11/17 20:53 37.5 79 18 133/68 99 Room Air Physical Exam GENERAL: Awake, alert, well-appearing, NAD HENT: Normocephalic, atraumatic. EYES: Normal conjunctiva. Sclera non-icteric. NECK: Supple. No nuchal rigidity. FROM. RESPIRATORY: CTAB, no rhonchi, wheezing, crackles CARDIAC: RRR. Systolic ejection murmur. ABDOMEN: Soft, NTND, BS+. No CVA TTP. MSK: No chest wall TTP, no LE edema NEURO: GCS 15, CN 2-12 intact, moves all 4s on command SKIN: No rashes. Bilateral LE without redness, or evidence of infection. Medical Decision & Procedures ER Provider Diagnostic Interpretation: X-ray: Per my interpretation, radiologist review. CHEST ONE VIEW PORTABLE FINDINGS: Lung volumes are normal. Linear left basilar opacity is suggestive of atelectasis. No consolidation is identified and there is no evidence of pulmonary edema. Cardiomediastinal silhouette is normal. IMPRESSION: 1. Mild left basilar opacity. Atelectasis is favored. Pneumonia could appear similar although is considered less likely. 2. No evidence of pulmonary edema. Electronically signed by: Beny Ruiz M.D. 09/11/2017 10:02 PM Laboratory Results 09/11/17 21:38 Red Blood Count 4.27, Mean Corpuscular Volume 88.5, Mean Corpuscular Hemoglobin 29.0, Mean Corpuscular Hemoglobin Concent 32.8, Mean Platelet Volume 9.0, Neutrophils (%) (Auto) 65.5, Lymphocytes (%) (Auto) 24.7, Monocytes (%) (Auto) 5.4, Eosinophils (%) (Auto) 2.8, Basophils (%) (Auto) 0.4, Neutrophils # (Auto) 7.40, Lymphocytes # (Auto) 2.78, Monocytes # (Auto) 0.61, Eosinophils # (Auto) 0.31, Basophils # (Auto) 0.04 09/11/17 21:38 Test 09/11/17 21:35 09/11/17 21:38 09/11/17 21:53 Influenza Type A Antigen Neg for Influ A (NEG) Influenza Type B Antigen Neg for Influ B (NEG) White Blood Count 11.27 K/uL (4.8-10.8) Red Blood Count 4.27 M/uL (4.7-6.1) Hemoglobin 12.4 g/dL (14.0-18.0) Hematocrit 37.8 % (42-52) Mean Corpuscular Volume 88.5 fL (80-100) Mean Corpuscular Hemoglobin 29.0 pg (25-34) Mean Corpuscular Hemoglobin Concent 32.8 g/dl (32-36) Platelet Count 349 K/uL (130-400) Mean Platelet Volume 9.0 fL (7.4-10.4) Neutrophils (%) (Auto) 65.5 % Lymphocytes (%) (Auto) 24.7 % Monocytes (%) (Auto) 5.4 % Eosinophils (%) (Auto) 2.8 % Basophils (%) (Auto) 0.4 % Neutrophils # (Auto) 7.40 K/uL (1.4-6.5) Lymphocytes # (Auto) 2.78 K/uL (1.2-3.4) Monocytes # (Auto) 0.61 K/uL (0.11-0.59) Eosinophils # (Auto) 0.31 K/uL (0-0.5) Basophils # (Auto) 0.04 K/uL (0-0.2) RDW Standard Deviation 52.9 fL (36.4-46.3) RDW Coefficient of Variation 16.3 % (11.5-14.5) Immature Granulocyte % (Auto) 1.2 % Immature Granulocyte # (Auto) 0.13 K/uL (0.00-0.02) Prothrombin Time 10.9 SECONDS (9.0-12.0) Prothromb Time International Ratio 1.0 (0.9-1.1) Activated Partial Thromboplast Time 36.6 SECONDS (21.0-31.0) Partial Thromboplastin Ratio 1.4 Anion Gap 7.0 mmol/L (3-11) Est Creatinine Clear Calc Drug Dose 49.4 ml/min Estimated GFR () 44.4 Estimated GFR (Non- 38.3 BUN/Creatinine Ratio 16.3 (10-20) Calcium Level 9.0 mg/dl (8.5-10.1) Total Bilirubin 0.5 mg/dl (0.2-1) Direct Bilirubin 0.1 mg/dl (0-0.2) Aspartate Amino Transf (AST/SGOT) 29 U/L (15-37) Alanine Aminotransferase (ALT/SGPT) 31 U/L (12-78) Alkaline Phosphatase 100 U/L (45-117) Total Protein 7.4 gm/dl (6.4-8.2) Albumin 3.5 gm/dl (3.4-5.0) Lipase 112 U/L (73-393) Urine Color YELLOW Urine Appearance CLEAR (CLEAR) Urine pH 7.0 (4.5-7.5) Urine Specific [place] 1.017 (1.000-1.030) Urine Protein 2+ (NEG) Urine Glucose (UA) NEG (NEG) Urine Ketones NEG (NEG) Urine Occult Blood NEG (NEG) Urine Nitrite NEG (NEG) Urine Bilirubin NEG (NEG) Urine Urobilinogen NEG (NEG) Urine Leukocyte Esterase NEG (NEG) Urine WBC (Auto) 1-5 /hpf (0-5) Urine RBC (Auto) 0-4 /hpf (0-4) Urine Hyaline Casts (Auto) 0 /lpf (0-5) Urine Epithelial Cells (Auto) 0-5 /lpf (0-5) Urine Bacteria (Auto) NEG (NEG) Lactic Acid Level 2.3 mmol/L (0.4-2.0) Laboratory results reviewed by me Medications Administered Medications (Trade) Dose Ordered Sig/Erik Route Start Time Stop Time Status Last Admin Dose Admin Sodium Chloride 500 ml @ 1,000 mls/hr Q30M ONCE IV 09/11/17 21:24 09/11/17 21:53 DC 09/11/17 21:51 1,000 MLS/HR Acetaminophen (Tylenol Tab) 1,000 mg NOW STAT PO 09/11/17 21:24 09/11/17 23:14 DC 09/11/17 21:51 1,000 MG Amoxicillin/ Clavulanate Potassium (Augmentin Tab) 875 mg NOW ONCE PO 09/11/17 23:15 09/11/17 23:16 DC 09/11/17 23:18 875 MG Azithromycin (Zithromax Tab) 500 mg NOW ONCE PO 09/11/17 23:15 09/11/17 23:16 DC 09/11/17 23:18 500 MG Ibuprofen (Advil Tab) 400 mg NOW STAT PO 09/11/17 23:13 09/11/17 23:14 DC 09/11/17 23:18 400 MG ECG Indication: weakness (generalized) Rate (beats per minute): 84 Rhythm: normal sinus Findings: RBBB, T-wave inversion (V2 - V3), other (Wide QRS. Normal QTC. No other STS changes or TWI. ) Comparison ECG Date: Sep 03, 2017 Change: TWI are new. ED Course 2106: The patient was evaluated in room A11B. A complete history and physical exam was performed. 5: I reevaluated the patient. Discussed results and discharge instructions: he verbalized understanding and agreement. The patient is ready for discharge. Medical Decision The patient is a 76 year old white male with a past medical history of HTN, hyperlipidemia, hypothyroid, gout, and insulin dependent diabetes who presents to the ED with a cc of persistent fevers beginning today. Differential diagnosis: Etiologies such as sepsis, UTI, pneumonia, metabolic, electrolyte abnormalities , cardiac sources, intracerebral event, toxicologic, neurologic, as well as others were entertained. Patient was seen and evaluated at the bedside. Per the patient's he had a fever earlier today around 102. Patient does have a history of prior osteomyelitis. This happened with overlying cellulitis to the foot as well as to the hand previously as well as earlier in the summer. Patient was recently seen a possible [place] prior ingested finished a course of ciprofloxacin for a UTI. Patient states he's had been having some similar complaints. Patient has no nausea, vomiting, or diarrhea. Patient has had regular bowel movements. Patient denies any abdominal pain. On exam patient is fairly well-appearing. Patient is not tachycardic nor tachypneic nor hypoxic. Patient did have blood work, blood cultures, urinalysis, urine culture, chest x-ray, and supportive care given. Patient's blood work was fairly unremarkable. White blood cell count was within normal limits. Patient kidney function did show chronic kidney disease however his creatinine had improved from 2 to 1.6 compared to his prior visit. He denied any CP, SOB, or cough. Flu negative. LA 2.3, given IVF and tolerated glasses of water. Patient's urinalysis was negative. Patient did have a fever here which he was given Tylenol and Motrin. Patient's chest x- ray did show a questionable consolidation in the left lower lung base. Given that the patient didn't have any signs of overlying cellulitis in his feet and hands thus less likely osteomyelitis or cellulitis and no imaging of his extremities were obtained. Given that the patient did have a questionable consolidation with history of fever, I chose to treat him for possible pneumonia. He was given Augmentin and azithromycin as an alternative treatment for pneumonia given his recent course of ciprofloxacin for UTI. Upon reassessment patient was stating that he was feeling improved. Patient CURB-65 score was 2 given elevated BUN (< 30) and age. I discussed outpatient trx and close follow up which the patient agreed to. I stated if he got worse in the next 24-48 hrs he should return for further eval and trx. Being that his WBC was not elevated, he was not hypotensive, tachy, tachypnic, nor hypoxic, and he was able to tolerated his PO meds, he was deemed suitable for outpatient trx and f/u. Patient was given strict follow-up, discharge, and return precautions. All questions were answered. Patient was deemed suitable for outpatient follow-up at this time. Patient agreed with the plan of care and was safely discharged home. Medication Reconcilliation Current Medication List: was personally reviewed by me Blood Pressure Screening Patient's blood pressure: Normal blood pressure Blood pressure disposition: Did not require urgent referral Impression Primary Impression: Pneumonia Additional Impression: Fever Scribe Attestation The scribe's documentation has been prepared under my direction and personally reviewed by me in its entirety. I confirm that the note above accurately reflects all work, treatment, procedures, and medical decision making performed by me. Departure Information Dispostion Home / Self-Care Prescriptions Azithromycin (Zithromax) 250 Mg Tab 250 MG PO DAILY for 4 Days, #4 TAB Prov: Chema Kothari M.D. 09/11/17 Amoxicillin & Pot Clavulanate (Augmentin 875-125 mg) 1 Tab Tab 875 MG PO BID for 7 Days, #14 TAB Prov: Chema Kohtari M.D. 09/11/17 Referrals Navi Padilla M.D. (PCP) Patient Instructions ED Pneumonia Adult, [facility] Additional Instructions Please return to the emergency department if you have worsening or recurrent symptoms not amenable to at-home treatment. Please call for a follow-up appointment with her primary care physician. Please take your medications as prescribed. If you have other concerns and/or complaints please feel free to also call your primary care physician's office or return the ED for further evaluation, management, and treatment. You may take tylenol 650 mg every 6 hours as needed for pain/fever. You may take an occasional motrin/ibuprofen but do not take it consistently for fever/ pain. Take your medications as prescribed. If taking an antibiotic consider taking a probiotic and/or eating yogurt, but at the least, please take with food as it can cause upset stomach. If culture results are not available at discharge, if they are positive for concern of infection, you will be informed of the results as soon as they are available. You have been examined and treated today on an emergency basis only. This is not a substitute for, or an effort to provide, complete comprehensive medical care. It is impossible to recognize and treat all injuries or illnesses in a single emergency department visit. It is therefore important that you follow up closely with [facility], your PCP, and/or your specialist(s). Call as soon as possible for an appointment. Thank you for your time and consideration. I look forward to speaking with you again soon. Please don't hesitate to call us if you have any questions. Problem Qualifiers Primary Impression: Pneumonia Pneumonia type: due to unspecified organism Laterality: left Lung location : lower lobe of lung Qualified Codes: J18.1 - Lobar pneumonia, unspecified organism Additional Impression: Fever Fever type: unspecified Qualified Codes: R50.9 - Fever, unspecified
[2017-09-12] VITALS: BP 160/65; PULSE 84; TEMP 38.1; O2SAT 93
[2017-09-17] MEDS ORDERED: ELQ25 PO (15:23)
[2017-09-17] MEDS ORDERED: TRAM-10 PO (15:23)
[2017-09-17] MEDS ORDERED: LVQ750 PO (15:23)
[2017-09-17] MEDS ORDERED: INSDGIPEN SC (15:23)
[2017-09-17] MEDS ORDERED: LCTX PO (15:23)
[2017-09-17] MEDS ORDERED: MRLP17X PO (15:23)
[2017-09-17] MEDS ORDERED: FLM4 PO (15:23)
== END 2017-09-12 00:01 | disposition home or self-care (01) ==
LOC: C.EDB 20:50 → C.EDA 09-12 00:01
DX: J18.1 Lobar pneumonia, unspecified organism (principal); R50.9 Fever, unspecified; Z87.440 Personal history of urinary (tract) infections; I10 Essential (primary) hypertension; E78.5 Hyperlipidemia, unspecified; E03.9 Hypothyroidism, unspecified; M86.9 Osteomyelitis, unspecified; M10.9 Gout, unspecified; E11.9 Type 2 diabetes mellitus without complications; Z83.3 Family history of diabetes mellitus; Z82.49 Family history of ischemic heart disease and other diseases of the circulatory system; Z87.891 Personal history of nicotine dependence; Z79.4 Long term (current) use of insulin; Z79.82 Long term (current) use of aspirin; Z79.899 Other long term (current) drug therapy

== ENCOUNTER → 2017-10-28 | Outpatient (CLI) | payer BC ==
[~2017-10-28] MED LIST changes: -APIX1TAB3 PO; +FLM4 PO; -INSDGI SC; +INSDGIPEN SC; +LCTX PO; -LEVO-366 PO; +LVQ750 PO; +MRLP17X PO
[2017-10-28 10:58] LABS: HEMATOCRIT 39.9 % (42-52); MEAN CELL VOLUME 89.7 fL (80-100); MEAN CORPUSCULAR HEMOGLOBIN 30.1 pg (25-34); MEAN CORPUSCULAR HGB CONC 33.6 g/dl (32-36); MEAN PLATELET VOLUME 9.5 fL (7.4-10.4); PLATELET COUNT 335 K/uL (130-400); RED BLOOD COUNT 4.45 M/uL (4.7-6.1); WHITE BLOOD COUNT 9.13 K/uL (4.8-10.8)
[2017-10-28 11:01] LABS: MANUAL MICROSCOPIC REQUIRED? NO; REVIEW REQ? NO; URINE APPEARANCE CLEAR (CLEAR); URINE BILIRUBIN NEG (NEG); URINE COLOR YELLOW; URINE EPITHELIAL CELL AUTO 0-5 /lpf (0-5); URINE NITRITE NEG (NEG); URINE SPECIFIC GRAVITY 1.029 (1.000-1.030); UROBILINOGEN NEG (NEG)
[2017-10-28 11:19] LABS: CREATININE, URINE 64.8 mg/dl; URINE PROTIEN/CREAT RATIO 0.6 (0-0.2); URINE TOTAL PROTEIN 39.7 mg/dl (0-11.9)
[2017-10-28 11:23] LABS: BLOOD UREA NITROGEN 45 mg/dl (7-18); BUN/CREATININE RATIO 24.5 (10-20); CALCIUM 9.2 mg/dl (8.5-10.1); CARBON DIOXIDE 21 mmol/L (21-32); CHLORIDE 100 mmol/L (98-107); CREATININE 1.84 mg/dl (0.60-1.40); GLUCOSE 504 mg/dl (70-99); PHOSPHORUS 3.4 mg/dl (2.5-4.9); POTASSIUM 4.4 mmol/L (3.5-5.1); SODIUM 129 mmol/L (136-145)
[2017-10-28 11:38] LABS: BETA-HYDROXYBUTYRATE 1.74 mg/dL (0.2-2.81)
== END | disposition home or self-care (01) ==
LOC: C.LABBC 08:58
PROVIDERS: ATTEND Internal Medicine Nephrology
DX: I12.9 Hypertensive chronic kidney disease with stage 1 through stage 4 chronic kidney disease, or unspecified chronic kidney disease (principal); N18.3 Chronic kidney disease, stage 3 (moderate); E55.9 Vitamin D deficiency, unspecified; N25.81 Secondary hyperparathyroidism of renal origin

== ENCOUNTER → 2018-03-23 | Outpatient (CLI) | payer BC ==
[~2018-03-23] MED LIST changes: -ONDA4TAB10 SL
[2018-03-23 10:36] LABS: HEMATOCRIT 46.2 % (42-52); MEAN CELL VOLUME 88.7 fL (80-100); MEAN CORPUSCULAR HEMOGLOBIN 30.7 pg (25-34); MEAN CORPUSCULAR HGB CONC 34.6 g/dl (32-36); MEAN PLATELET VOLUME 9.5 fL (7.4-10.4); PLATELET COUNT 233 K/uL (130-400); RED CELL DISTRIBUTION WIDTH SD 45.5 fL (36.4-46.3)
[2018-03-23 10:47] LABS: ALBUMIN 3.8 gm/dl (3.4-5.0); ALT/SGPT 24 U/L (12-78); AST/SGOT 18 U/L (15-37); BLOOD UREA NITROGEN 45 mg/dl (7-18); CALCIUM 8.7 mg/dl (8.5-10.1); CARBON DIOXIDE 24 mmol/L (21-32); CREATININE 1.73 mg/dl (0.60-1.40); GLUCOSE 120 mg/dl (70-99); POTASSIUM 4.4 mmol/L (3.5-5.1); SODIUM 140 mmol/L (136-145)
[2018-03-23 10:58] LABS: CHOLESTEROL 114 mg/dl (0-200); LDL CHOLESTEROL CALCULATED 49 mg/dl; PHOSPHORUS 3.9 mg/dl (2.5-4.9)
[2018-03-23 11:44] LABS: HEMOGLOBIN A1C 9.3 % (4.5-5.6)
== END | disposition home or self-care (01) ==
LOC: C.LABBC 07:01
PROVIDERS: ATTEND Internal Medicine
DX: N18.3 Chronic kidney disease, stage 3 (moderate) (principal); I12.9 Hypertensive chronic kidney disease with stage 1 through stage 4 chronic kidney disease, or unspecified chronic kidney disease; N25.81 Secondary hyperparathyroidism of renal origin; E03.9 Hypothyroidism, unspecified; E11.21 Type 2 diabetes mellitus with diabetic nephropathy; I25.10 Atherosclerotic heart disease of native coronary artery without angina pectoris

== ENCOUNTER → 2018-06-26 | Outpatient (CLI) | payer BC ==
[2018-06-26 11:03] LABS: HEMOGLOBIN A1C 8.4 % (4.5-5.6)
[2018-06-26 11:05] LABS: ALBUMIN 3.9 gm/dl (3.4-5.0); BLOOD UREA NITROGEN 58 mg/dl (7-18); CALCIUM 8.9 mg/dl (8.5-10.1); CARBON DIOXIDE 26 mmol/L (21-32); GLUCOSE 225 mg/dl (70-99); PHOSPHORUS 3.2 mg/dl (2.5-4.9); POTASSIUM 3.9 mmol/L (3.5-5.1); SODIUM 137 mmol/L (136-145)
== END | disposition home or self-care (01) ==
LOC: C.LABBC 07:28
PROVIDERS: ATTEND Internal Medicine
DX: E11.9 Type 2 diabetes mellitus without complications (principal); E03.9 Hypothyroidism, unspecified; N18.3 Chronic kidney disease, stage 3 (moderate); E55.9 Vitamin D deficiency, unspecified; N25.81 Secondary hyperparathyroidism of renal origin; I12.9 Hypertensive chronic kidney disease with stage 1 through stage 4 chronic kidney disease, or unspecified chronic kidney disease

== ENCOUNTER 2025-07-07 03:00 | Observation (INO) ==
--- NOTE | 2025-07-07 03:14 | Emergency Department Note ---
History of Present Illness General Chief complaint: GI Assessment Stated complaint: ABD PAIN Time Seen by Provider: 07/07/25 03:08 History of Present Illness Maximum Pain Intensity: 10 This 84-year-old male presents ER complaint of severe lower abdominal pain since 1700 tonight. He was able to eat dinner. He has had prior abdominal surgery 30 years ago of a bladder tumor removal. Patient denies chest pain, dyspnea, vomiting, diarrhea, urinary symptoms. No history of bowel obstruction. Patient had a bowel movement yesterday. Home Medications Medication Instructions Recorded Confirmed Type acetaminophen 500 mg tablet 500 mg PO Q4H PRN fever or pain 06/06/19 06/30/25 History aspirin 81 mg tablet,delayed 81 mg PO DAILY 06/06/19 06/30/25 History release insulin syringe-needle U-100 1 mL #100 ea 06/29/21 06/30/25 Rx 30 gauge x 5/16" (Advocate Syringes) carvedilol 12.5 mg tablet 12.5 mg PO BID #180 tabs 04/02/25 06/30/25 Rx doxazosin 2 mg tablet 2 mg PO DAILY #90 tabs 04/02/25 06/30/25 Rx empagliflozin 10 mg tablet 10 mg PO DAILY #90 tabs 04/02/25 06/30/25 Rx (Jardiance) hydralazine 100 mg tablet 100 mg PO TID 90 days #270 tabs 04/02/25 06/30/25 Rx insulin glargine 100 unit/mL (3 17 unit (0.17 mL) subcut QAM #15 mL 04/02/25 06/30/25 Rx mL) subcutaneous pen (Lantus Solostar U-100 Insulin) levothyroxine 137 mcg tablet 137 mcg PO DAILY #90 tabs 04/02/25 06/30/25 Rx nifedipine 90 mg tablet,extended 90 mg PO DAILY #90 tabs 04/02/25 06/30/25 Rx release 24 hr pantoprazole 40 mg tablet,delayed 40 mg PO DAILY 04/02/25 06/30/25 History release insulin aspart U-100 100 unit/mL 1 sliding scale dose subcut 04/15/25 06/30/25 Rx (3 mL) subcutaneous pen (Novolog USEASDIRECTD #15 mL FlexPen U-100 Insulin aspart) pen needle, diabetic 33 gauge x #400 ea 05/07/25 06/30/25 Rx 5/16" (Comfort EZ [place]) furosemide 20 mg tablet 20 mg PO QAM #90 tabs 05/19/25 06/30/25 Rx atorvastatin 40 mg tablet 40 mg PO DAILY #90 tabs 07/02/25 Rx Allergies Allergy/AdvReac Type Severity Reaction Status Date / Time No Known Drug Allergies Allergy Verified 06/30/25 12:39 Past Med/Surg History Problem List (Updated 07/07/25 @ 05:30 by Niki Mendiola PA-C) Constipation (Acute) Intractable abdominal pain (Acute) Acute hyperglycemia (Acute) Acute urinary retention (Acute) Peripheral vascular disease Insomnia Shoulder pain, bilateral Weight decrease Health care maintenance Stage 3b chronic kidney disease Proteinuria Chronic kidney disease, stage 4 (severe) Subclavian artery stenosis Sensorineural hearing loss (SNHL) of both ears Occlusion and stenosis of unspecified carotid artery Gout CKD stage 3 due to type 2 diabetes mellitus Carpal tunnel syndrome, unspecified upper limb Atherosclerotic heart disease of [place] coronary artery without angina pectoris Closed left scapular fracture Shoulder pain 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 Personal history of diabetic foot ulcer Secondary renal hyperparathyroidism (Acute) Stage III chronic kidney disease (Acute) Diabetes mellitus (Chronic) Vitamin D deficiency (Acute) Low back pain (Acute) Hypothyroidism (Acute) Hypertension (Acute) Enlarged prostate without lower urinary tract symptoms (luts) (Acute) Dyslipidemia (Acute) Diabetic nephropathy (Acute) Chronic gout (Acute) CAD (coronary artery disease) (Acute) Renovascular hypertension (Acute) Medical History COVID Benign neoplasm of bladder Ulcer of right midfoot Hallux valgus (acquired), left foot Breakdown (mechanical) of carotid arterial graft (bypass), sequela Joint pain, knee Osteomyelitis of foot Surgical History History of bladder surgery H/O carotid endarterectomy Hx of total knee arthroplasty (2016) Family History Brother Alzheimer disease Sister Diabetes Other Osteomyelitis of foot Denies family history of Colon cancer Ovarian cancer Prostate cancer Myocardial infarction Breast cancer Social History Smoking Status: Former smoker Tobacco Type: Declines Age Started Using Tobacco: 17; Age Quit Using Tobacco: 49; packs per day: 1; Second Hand Exposure: No; Hx Alcohol Use: No Hx Substance Use: No Preferred Language: Ghanaian Communication Ability: Effective Machine Heel 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 Required: No Beliefs That Will Affect Care: None marital status: / Current Living Situation: Spouse current occupational status: retired Feels Safe at Home: Yes Childhood Exposure to Second-Hand Smoke: No Dental Care, Regularly: No Physical Activity Frequency: Does not Exercise Seatbelt Use: always Assistive Devices: Cane, Denture - Upper and Glasses Review of Systems A total of 10 systems reviewed and were otherwise negative Physical Exam Vital Signs Vital Signs - 24 hr 07/07/25 03:01 07/07/25 03:05 07/07/25 03:08 Temperature 36.5 C Temperature Source Temporal Artery Scan Pulse Rate 63 Respiratory Rate 16 Respiratory Effort / Characteristics Non-Labored Non-Labored Spontaneous Respiratory Depth Normal Normal Respiratory Pattern Regular Blood Pressure 172/74 H Blood Pressure Mean 106 Pulse Oximetry 99 Oxygen Delivery Method Room Air Room Air Sepsis Recent Fever Within 48 Hours No Sepsis New/Unexplained Change in Mental Status N/A Sepsis Action Taken by Nursing No Action Required 07/07/25 03:11 07/07/25 03:15 07/07/25 03:15 Temperature Temperature Source Pulse Rate 55 L Respiratory Rate Respiratory Effort / Characteristics Respiratory Depth Respiratory Pattern Blood Pressure 205/75 H 195/94 H Blood Pressure Mean 140 184 Pulse Oximetry Oxygen Delivery Method Sepsis Recent Fever Within 48 Hours Sepsis New/Unexplained Change in Mental Status Sepsis Action Taken by Nursing 07/07/25 03:50 07/07/25 04:08 07/07/25 04:08 Temperature Temperature Source Pulse Rate 53 L Respiratory Rate 18 Respiratory Effort / Characteristics Respiratory Depth Respiratory Pattern Blood Pressure 138/76 138/76 Blood Pressure Mean 92 92 Pulse Oximetry Oxygen Delivery Method Sepsis Recent Fever Within 48 Hours Sepsis New/Unexplained Change in Mental Status Sepsis Action Taken by Nursing VITALS: Vitals are noted on the nurse's note and reviewed by myself. Vital signs stable. GENERAL: Pleasant patient who appears in pain, in no acute distress, nondiaphoretic, well-developed well-nourished. SKIN: Capillary reflex less than 2 seconds. HEENT: Normocephalic. PERRLA. EOMI. Nares patent. Mucous membranes moist. Neck is supple without nuchal rigidity. HEART: Regular rate and rhythm LUNGS: Clear to auscultation bilaterally without wheezes, rales or rhonchi. No retractions or accessory muscle use. ABDOMEN: Positive bowel sounds x 4. Normal tympanic percussion. Soft, tender to palpation lower abdomen, without masses or organomegaly. Pierre sign negative. No guarding or rebound tenderness. no CVA tenderness MUSCULOSKELETAL: No gross musculoskeletal defects. NEURO: Patient was alert and oriented to person place and time. No focal neurological deficits. Course Administered Medications Discontinued Medications Sodium Chloride (Nss) 250 mls @ 999 mls/hr IV .Q16M ONE Stop: 07/07/25 04:04 Last Infusion: 07/07/25 04:30 Dose: Infused Documented By: Admin: 07/07/25 04:06 Dose: 999 mls/hr Documented By: DONIS Acetaminophen (Ofirmev) 1,000 mg in 100 mls @ 400 mls/hr IV NOW STA Stop: 07/07/25 04:24 Last Infusion: 07/07/25 04:45 Dose: Infused Documented By: Admin: 07/07/25 04:13 Dose: 400 mls/hr Documented By: KAJAL Ioversol (Optiray 320 125ml) 125 ml IV ONCE ONE Stop: 07/07/25 04:53 Last Admin: 07/07/25 04:52 Dose: 118 ml Documented By: ADDISON Morphine Sulfate (Morphine Sulfate 4 Mg/Ml 1 Ml Carp\\Vial) 4 mg IV NOW STA Stop: 07/07/25 03:12 Last Admin: 07/07/25 03:16 Dose: 4 mg Documented By: DONIS Ondansetron HCl (Ondansetron Inj 2 Mg/Ml 2 Ml Vial) 4 mg IV NOW STA Stop: 07/07/25 03:12 Last Admin: 07/07/25 03:16 Dose: 4 mg Documented By: DONIS Medical Decision Making Medical Records Attestation: I reviewed the patient's medical records. Home Medications Current Medication List: was personally reviewed by me Laboratory Data Attestation: I reviewed the patient's lab results. 07/07/25 03:14 07/07/25 03:14 Lab Results 07/07/25 07/07/25 Range/Units 03:14 03:25 WBC 10.63 (4.8-10.8) K/ul RBC 4.39 L (4.70-6.10) M/uL Hgb 12.2 L (14.0-18.0) g/dl Hct 38.1 L (42.0-52.0) % MCV 86.8 (80.0-100.0) fL MCH 27.8 (25.0-34.0) pg MCHC 32.0 (32.0-36.0) g/dL RDW Std Deviation 47.6 H (36.4-46.3) fL RDW Coeff of Robin 15.0 H (11.5-14.5) % Plt Count 229 (130-400) K/uL MPV 10.0 (9.4-12.4) fL Immature Gran % (Auto) 0.3 % Neut % (Auto) 53.3 % Lymph % (Auto) 32.7 % [place] % (Auto) 8.9 % Eos % (Auto) 4.2 % Baso % (Auto) 0.6 % Neut # (Auto) 5.66 (1.40-6.50) K/uL Lymph # (Auto) 3.48 H (1.20-3.40) K/uL [place] # (Auto) 0.95 H (0.11-0.59) K/uL Eos # (Auto) 0.45 (0.00-0.50) K/uL Baso # (Auto) 0.06 (0.00-0.20) K/uL Immature Gran # (Auto) 0.03 (0.01-0.20) K/uL Sodium 135 L (136-145) mmol/L Potassium 4.0 (3.5-5.1) mmol/L Chloride 103 (98-107) mmol/L Carbon Dioxide 20 L (21-32) mmol/L Anion Gap 12 H (3-11) BUN 79 H (6-23) mg/dl Creatinine 2.09 H (0.6-1.4) mg/dl Est Cr Clr Drug Dosing 31.5 ml/min eGFR 30.45 BUN/Creatinine Ratio 37.8 H (10-20) Glucose 217 H (70-99(Fasting)) mg/dl Calcium 9.4 (8.6-10.3) mg/dl Total Bilirubin 0.9 (0.2-1.0) mg/dl AST 15 (13-39) U/L ALT 15 (7-52) U/L Alkaline Phosphatase 56 (34-104) U/L Total Protein 7.2 (6.0-8.3) gm/dl Albumin 4.1 (3.4-5.0) gm/dl Globulin 3.1 (2.5-4.0) gm/dl Albumin/Globulin Ratio 1.3 (0.9-2) Lipase 42 (11-82) U/L Urine Color Yellow Urine Appearance Clear (Clear) Urine pH 6.5 (4.5-7.5) Ur Specific [place] 1.016 (1.000-1.030) Urine Protein 1+ H (Negative) Urine Glucose (UA) 3+ H (Negative) Urine Ketones Negative (Negative) Urine Blood Negative (Negative) Urine Nitrite Negative (Negative) Urine Bilirubin Negative (Negative) Urine Urobilinogen Negative (Negative) Ur Leukocyte Esterase Negative (Negative) Urine WBC (Auto) 0-5 (0-5) /hpf Urine RBC (Auto) 0-2 (0-2) /hpf U Hyaline Cast (Auto) 0-2 (0-2) /lpf U Epithel Cells (Auto) 0-2 (0-2) /hpf Urine Bacteria (Auto) None Seen (None Seen) Urine Comment Imaging Data Attestation: I personally reviewed and interpreted this imaging study as follows: Radiologist's Impression: Abdomen/Pelvis CT 07/07/25 03:08 EXAM: CT abd pelvis wo con CLINICAL HISTORY: lower abd pain TECHNIQUE: Contiguous axial images were obtained from the level of the diaphragm to the pubic symphysis without intravenous or oral contrast. Coronal and sagittal reconstructions were likewise performed and indicated to increase the sensitivity for detecting clinically relevant pathology. CT scan was performed according to ALARA (as low as reasonable achievable). COMPARISON: None. FINDINGS: Few atelectatic bands are noted involving bilateral lung bases. Evaluation of the abdominal and pelvic visceral organs is limited without intravenous contrast. The unenhanced liver, spleen, pancreas, and adrenal glands are grossly unremarkable. The gallbladder is present. The kidneys are normal in size and attenuation without obvious calcification. There is no hydronephrosis . Mild bilateral perinephric stranding. The ureters are normal in caliber. The urinary bladder is normal in contour. Pelvic viscera are grossly unremarkable. No adenopathy or fluid collections are seen. No evidence of focal or diffuse bowel wall thickening or evidence of bowel obstruction is seen. The appendix is visualized in the right lower quadrant and appears within normal limits. Diffuse atherosclerotic calcification is noted involving aorta iliac arteries. Evidence of intraluminal linear calcification is noted involving infrarenal abdominal aorta- possibility of calcified intimal flap /dissection - angiography correlation suggested. No aggressive appearing osseous lesions are identified. Colonic fecal and gaseous distension Fat containing left sided inguinal hernia. Degenerative changes involving visualized spine. IMPRESSION: Diffuse atherosclerotic calcification is noted involving aorta iliac arteries. evidence of intraluminal linear calcification is noted involving infrarenal abdominal aorta- possibility of calcified intimal flap /dissection - angiography correlation suggested. Colonic fecal and gaseous distension- possibility of constipation - clinical correlation suggested. Mild bilateral perinephric fat stranding.could represent acute kidney injury Fat containing left sided inguinal hernia. Electronically signed by Jeff Dubois 07-07-2025 04:23 AM Abdomen/Pelvis CTA 07/07/25 04:30 EXAM: CT angio abdomen pelvis w con CLINICAL HISTORY: possibility of calcified intimal flap /dissection TECHNIQUE: Contrast enhanced thin slice CT angiography scan of the abdominal aorta was performed with intravenous contrast. Angiographic images were processed, 3D MIP images were acquired for interpretation. Contiguous axial images were obtained. Reformatted coronal and sagittal images were also reviewed. If IV contrast material had not been administered, the likelihood of detecting abnormalities relevant to the patients condition would have been substantially decreased. CT scan was performed according to ALARA (as low as reasonable achievable). COMPARISON: Jun 02:41:00 . FINDINGS: Diffuse atherosclerotic calcification is noted involving aorta and iliac arteries. Evidence of multifocal calcified intimal flap are noted involving infrarenal abdominal aorta Stent are noted involving bilateral renal artery origin, appears patent. Mild bilateral perinephric fat stranding. Colonic fecal and gaseous distension- constipation changes. Fat containing left sided inguinal hernia. Abdominal aorta is normal in course, calibre and opacification. Origin of coeliac artery, superior mesenteric artery , bilateral main renal and lumbar arteries are normal with no hemodynamically significant ostial stenosis noted. Bilateral common, external and internal iliac arteries are normal in course, caliber and opacification. Solid abdominal organs including liver, spleen, pancreas reveal no significant abnormality. No evidence of ascites. IMPRESSION: 1. Diffuse atherosclerotic calcification is noted involving aorta and iliac arteries.-stable. 2. Evidence of multifocal calcified intimal flaps are noted involving infrarenal abdominal aorta. 3. Stent are noted involving bilateral renal artery origin, appears patent. 4. Mild bilateral perinephric fat stranding.-stable. 5. Colonic fecal and gaseous distension- constipation changes.-stable. 6. Fat containing left sided inguinal hernia.-stable. Electronically signed by Jeff Dubois 07-07-2025 05:19 AM MDM Narrative Prior records/ancillary studies reviewed. Triage Nursing notes reviewed. Additional history obtained from nursing The patient's history was concerning for abdominal pain. Differential diagnosis: Etiologies such as appendicitis, diverticulitis, PUD, biliary pathology, UTI, pancreatitis, obstruction, mesenteric ischemia, aortic pathology, infections, inflammatory bowel disease, renal colic, as well as others were entertained. Physical examination findings: As above. ER treatment provided: An order was placed for continuous cardiac monitoring. The monitor shows a rate of 60-100 with a sinus rhythm per my Independent interpretation. Morphine and Zofran were ordered Bladder scan showed 730 and Barros was placed by nursing Soapsuds enema by nursing On reassessment the patient felt better. Diagnostics interpreted by me: The labs Independently Interpreted by myself revealed mild hyperglycemia no DKA. Negative urine. Mild anemia. No worrisome leukocytosis Imaging studies: Imaging was reviewed and read by radiology Radiology requested CTA and this was ordered per the request. No dissection. Consultation: A consultation was placed with the hospitalist. The case was discussed and diagnostics were reviewed. The patient was evaluated in the ER for further treatment. Exam and history seem consistent with urinary retention and constipation. Patient was still in severe amount of pain did not feel comfortable going home. He is requesting admission. No bowel obstruction. Barros was placed and patient is feeling better. Medicine is consulted and the case discussed. He will be evaluated for possible admission. By the evaluation outlined above emergent etiologies such as appendicitis, diverticulitis, PUD, biliary pathology, UTI, pancreatitis, obstruction, mesenteric ischemia, aortic pathology, infections, inflammatory bowel disease, renal colic, as well as others were deemed relatively unlikely. The pt informed about the findings as listed above. All questions were answered and pleased with the treatment. The chart was completed utilizing [employer] voice recognition software. Grammatical errors, random word insertions, pronoun errors, and incomplete sentences are an occassional consequence of this system due to software limitations, ambient noise, and hardware issues. Any formal questions or concerns about the content, text, or information contained within the body of this dictation should be directly addressed to the physician web production assistant for clarification. Impression & Plan Acute urinary retention, Acute hyperglycemia, Intractable abdominal pain, Constipation Discharge Plan Visit Data Chief Complaint: GI Assessment Stated Complaint: ABD PAIN ED Provider: Eliot Forman ED Midlevel Provider: Niki Mendiola Discharge Problem: Acute urinary retention, Acute hyperglycemia, Intractable abdominal pain, Constipation Patient Disposition: Admitted As Inpatient Condition: Good Discharge Instructions [place]/Other Patient Handouts: ED Barros Catheter, Care Forms Stand Alone Forms: Important Visit Information Prescriptions Prescriptions: No Action (DME) insulin syringe-needle U-100 [[facility]ocate Syringes] 1 mL 30 gauge x 5/16 syringe See Rx Instructions .Route Qty: 100 3RF Rx Instructions: use to take insulin 4 times a day insulin aspart U-100 [Novolog FlexPen U-100 Insulin] 100 unit/mL (3 mL) insulin pen 1 sliding scale dose subcut USEASDIRECTD Qty: 15 6RF Rx Instructions: 2-8 units before meals according to sliding scale (DME) Comfort EZ [place] 33 gauge x 5/16" needle See Rx Instructions .Route Qty: 400 3RF Rx Instructions: use 4 times a day with insulin. E11.9 atorvastatin 40 mg tablet 40 mg PO DAILY Qty: 90 3RF acetaminophen 500 mg tablet 500 mg PO Q4H PRN (Reason: fever or pain) aspirin 81 mg tablet,delayed release (DR/EC) 81 mg PO DAILY pantoprazole 40 mg tablet,delayed release (DR/EC) 40 mg PO DAILY levothyroxine 137 mcg tablet 137 mcg PO DAILY Qty: 90 3RF carvedilol 12.5 mg tablet 12.5 mg PO BID Qty: 180 3RF Rx Instructions: must administer with a meal/food hydralazine 100 mg tablet 100 mg PO TID 90 Days Qty: 270 3RF nifedipine 90 mg tablet extended release 24hr 90 mg PO DAILY Qty: 90 3RF Jardiance 10 mg tablet 10 mg PO DAILY Qty: 90 3RF Lantus Solostar U-100 Insulin 100 unit/mL (3 mL) insulin pen 17 unit SQ QAM Qty: 15 3RF doxazosin 2 mg tablet 2 mg PO DAILY Qty: 90 3RF furosemide 20 mg tablet 20 mg PO QAM Qty: 90 3RF Referrals Referrals: Abdulaziz Rodgers DO [Physician] - Kumar Lujan DO [Primary Care Provider] -
[2025-07-07] MEDS: MoRPHine SULFATE 4 MG/ML 1 ML CARP\\VIAL IV STA (03:16)
[2025-07-07] MEDS: ONDANSETRON INJ 2 MG/ML 2 ML VIAL IV STA (03:16)
[2025-07-07 03:29] LABS: Hematocrit (blood only) 38.1 % (42.0-52.0); Hemoglobin 12.2 g/dl (14.0-18.0); Immature Granulocytes # (auto) 0.03 K/uL (0.01-0.20); Immature Granulocytes % (auto) 0.3 %; Mean Corpuscular Hemoglobin 27.8 pg (25.0-34.0); Mean Corpuscular Volume 86.8 fL (80.0-100.0); Platelet Count 229 K/uL (130-400); RDW Standard Deviation 47.6 fL (36.4-46.3); Red Blood Count 4.39 M/uL (4.70-6.10); White Blood Count 10.63 K/ul (4.8-10.8)
[2025-07-07 03:41] LABS: Appearance Urine Clear (Clear); Bacteria Urine Automated None Seen (None Seen); Cast Urine Automated 0-2 /lpf (0-2); Epithelial Cell Urine Auto 0-2 /hpf (0-2); Glucose Urine UA 3+ (Negative); RBC Urine Automated 0-2 /hpf (0-2); WBC Urine Automated 0-5 /hpf (0-5)
[2025-07-07 03:48] LABS: Alanine Aminotransferase 15.0 U/L (7-52); Albumin Globulin Ratio 1.3 (0.9-2); Alkaline Phosphatase 56.0 U/L (34-104); Anion Gap 12.0 (3-11); Bilirubin,Total 0.9 mg/dl (0.2-1.0); Blood Urea Nitrogen 79.0 mg/dl (6-23); Calcium 9.4 mg/dl (8.6-10.3); Carbon Dioxide 20.0 mmol/L (21-32); Chloride 103.0 mmol/L (98-107); Creatinine Clr Calc Pharmacy 31.5 ml/min; Globulin 3.1 gm/dl (2.5-4.0); Glucose 217.0 mg/dl (70-99(Fasting)); Lipase 42.0 U/L (11-82); Potassium 4.0 mmol/L (3.5-5.1); Sodium 135.0 mmol/L (136-145); Total Protein 7.2 gm/dl (6.0-8.3)
[2025-07-07] MEDS: SODIUM CHLORIDE 0.9% 250 ML IV ONE (04:06)
[2025-07-07] MEDS: ACETAMINOPHEN 1,000 MG/100 ML VIAL IV STA (04:13)
--- NOTE | 2025-07-07 04:23 | CT Scan Report ---
EXAM: CT abd pelvis wo con CLINICAL HISTORY: lower abd pain TECHNIQUE: Contiguous axial images were obtained from the level of the diaphragm to the pubic symphysis without intravenous or oral contrast. Coronal and sagittal reconstructions were likewise performed and indicated to increase the sensitivity for detecting clinically relevant pathology. CT scan was performed according to ALARA (as low as reasonable achievable). COMPARISON: None. FINDINGS: Few atelectatic bands are noted involving bilateral lung bases. Evaluation of the abdominal and pelvic visceral organs is limited without intravenous contrast. The unenhanced liver, spleen, pancreas, and adrenal glands are grossly unremarkable. The gallbladder is present. The kidneys are normal in size and attenuation without obvious calcification. There is no hydronephrosis . Mild bilateral perinephric stranding. The ureters are normal in caliber. The urinary bladder is normal in contour. Pelvic viscera are grossly unremarkable. No adenopathy or fluid collections are seen. No evidence of focal or diffuse bowel wall thickening or evidence of bowel obstruction is seen. The appendix is visualized in the right lower quadrant and appears within normal limits. Diffuse atherosclerotic calcification is noted involving aorta iliac arteries. Evidence of intraluminal linear calcification is noted involving infrarenal abdominal aorta- possibility of calcified intimal flap /dissection - angiography correlation suggested. No aggressive appearing osseous lesions are identified. Colonic fecal and gaseous distension Fat containing left sided inguinal hernia. Degenerative changes involving visualized spine. IMPRESSION: Diffuse atherosclerotic calcification is noted involving aorta iliac arteries. evidence of intraluminal linear calcification is noted involving infrarenal abdominal aorta- possibility of calcified intimal flap /dissection - angiography correlation suggested. Colonic fecal and gaseous distension- possibility of constipation - clinical correlation suggested. Mild bilateral perinephric fat stranding.could represent acute kidney injury Fat containing left sided inguinal hernia. Electronically signed by Jeff Dubois 07-07-2025 04:23 AM
[2025-07-07] MEDS: OPTIRAY 320 125ml IV ONE ×2 (04:52→06:08)
--- NOTE | 2025-07-07 05:19 | CT Scan Report ---
EXAM: CT angio abdomen pelvis w con CLINICAL HISTORY: possibility of calcified intimal flap /dissection TECHNIQUE: Contrast enhanced thin slice CT angiography scan of the abdominal aorta was performed with intravenous contrast. Angiographic images were processed, 3D MIP images were acquired for interpretation. Contiguous axial images were obtained. Reformatted coronal and sagittal images were also reviewed. If IV contrast material had not been administered, the likelihood of detecting abnormalities relevant to the patients condition would have been substantially decreased. CT scan was performed according to ALARA (as low as reasonable achievable). COMPARISON: Jun 02:41:00 CS. FINDINGS: Diffuse atherosclerotic calcification is noted involving aorta and iliac arteries. Evidence of multifocal calcified intimal flap are noted involving infrarenal abdominal aorta Stent are noted involving bilateral renal artery origin, appears patent. Mild bilateral perinephric fat stranding. Colonic fecal and gaseous distension- constipation changes. Fat containing left sided inguinal hernia. Abdominal aorta is normal in course, calibre and opacification. Origin of coeliac artery, superior mesenteric artery , bilateral main renal and lumbar arteries are normal with no hemodynamically significant ostial stenosis noted. Bilateral common, external and internal iliac arteries are normal in course, caliber and opacification. Solid abdominal organs including liver, spleen, pancreas reveal no significant abnormality. No evidence of ascites. IMPRESSION: 1. Diffuse atherosclerotic calcification is noted involving aorta and iliac arteries.-stable. 2. Evidence of multifocal calcified intimal flaps are noted involving infrarenal abdominal aorta. 3. Stent are noted involving bilateral renal artery origin, appears patent. 4. Mild bilateral perinephric fat stranding.-stable. 5. Colonic fecal and gaseous distension- constipation changes.-stable. 6. Fat containing left sided inguinal hernia.-stable. Electronically signed by Jeff Dubois 07-07-2025 05:19 AM
--- NOTE | 2025-07-07 05:33 | History & Physical Report ---
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 Workup concerning for constipation, no clear signs of infection or clear evidence of ischemic gut. Pt would benefit from having additional radiologist evaluate films obtained in ED. Pt to be admitted for constipation and intractable abdominal pain. 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 No blood. Soapsuds enema provided in ED. - CBC without leukocytosis, no indications for infection - CTAP supports colonic fecal gaseous distention, also notes diffuse atherosclerotic calcifications, bilateral perinephric fat stranding, and fat- containing L-sided inguinal hernia - CTA A/P supports CTAP findings - Full liquid diet until BM occurs - IVF LR @ 80 mL/hr - Acetaminophen prn fever/pain -- avoid opioids in setting of constipation - Regimen as follows: MiraLAX, lactulose, and senna chandrika; MOM + MiraLAX prn - Consider additional enemas as necessary #T2DM H/o DMT2; At home regimen includes Jardiance, insulin aspart SSI, glargine 17U am. - Most recent A1C 03/2025 @ 7.3% - Hold home regimen - Lantus 8U BID - SSI with target BSG range 110-150mg/dL, CF 25 carb ratio 10 - BSG ACHS - Adjust regimen as needed #CKD, stage IV- Follows with nephrology, most recent visit 06/29/2025. nown h/o ROSE s/p R RA stent [facility] 2009; Baseline Cr 2.2-2.4, Cr at admission 2.09 - Trend BMP #CAD/HLD/PVD- H/o carotid stenosis s/p bilateral CEA; ASA, atorvastatin - continue #HTN- H/o R subclavian artery stenosis (ALL BP READINGS TO BE TAKEN IN L ARM); Carvedilol, furosemide, hydralazine, nifedipine - continue #BPH- Doxazosin - continue #Hypothyroidism- Levothyroxine - continue #GERD- Pantoprazole- continue Dispo: Obs, med/sx VTE Prophylaxis: SCDs This document was dictated utilizing [employer]. Please excuse any grammatical errors that may be secondary to use of this software. 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 Reports significant constipation. 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 and felt that it was normal, but he does often find himself straining to have a bowel movement. He still passing flatulence. Denies any nausea or vomiting. Patient reports trying stool softeners at home without relief. He feels his abdomen is distended and states that is not necessarily pain he is having, but discomfort. Patient does have a history of diabetes with neuropathy, follows with podiatry. He denies chest pain, SOB, palpitations, diarrhea, numbness/tingling, fever/chills, URI symptoms, LUTS, weakness, lightheadedness, or syncope. ED evaluation CBC without leukocytosis, H&H 12.2/30.1; CMP sodium 135, CO2 20, anion gap 12, BUN 79, creatinine 2.09, ratio 37.8, glucose 217; lipase 42; UA without infection; CTAP diffuse atherosclerotic calcification involving the aortic iliac arteries, possibility of calcified intimal flap/dissection, colonic fecal and gaseous distention (constipation), mild bilateral perinephric fat stranding (could represent SANDRA), fat-containing L sided inguinal hernia; CTA A/P diffuse atherosclerotic calcification, evidence of multifocal calcified labs, stent involving bilateral renal artery appears patent, mild bilateral perinephri c fat stranding, colonic fecal and gaseous distention, fat-containing L-sided inguinal hernia,; provided with 250 mL NSS, Zofran 4 mg IV, morphine 4 mg IV, and acetaminophen 1 g IV in ED. Please see Dr. Armijo's attestation for adjustments/additions to treatment plan. Allergies Allergy/AdvReac Type Severity Reaction Status Date / Time No Known Drug Allergies Allergy Verified 06/30/25 12:39 Home Medications Medication Instructions Recorded Confirmed Type acetaminophen 500 mg tablet 500 mg PO Q4H PRN fever or pain 06/06/19 07/07/25 History aspirin 81 mg tablet,delayed 81 mg PO DAILY 06/06/19 07/07/25 History release insulin syringe-needle U-100 1 mL #100 ea 06/29/21 06/30/25 Rx 30 gauge x 5/16" ([facility]) carvedilol 12.5 mg tablet 12.5 mg PO BID #180 tabs 04/02/25 07/07/25 Rx doxazosin 2 mg tablet 2 mg PO DAILY #90 tabs 04/02/25 07/07/25 Rx empagliflozin 10 mg tablet 10 mg PO DAILY #90 tabs 04/02/25 07/07/25 Rx (Jardiance) hydralazine 100 mg tablet 100 mg PO TID 90 days #270 tabs 04/02/25 07/07/25 Rx insulin glargine 100 unit/mL (3 17 unit (0.17 mL) subcut QAM #15 mL 04/02/25 07/07/25 Rx mL) subcutaneous pen (Lantus Solostar U-100 Insulin) levothyroxine 137 mcg tablet 137 mcg PO DAILY #90 tabs 04/02/25 07/07/25 Rx nifedipine 90 mg tablet,extended 90 mg PO DAILY #90 tabs 04/02/25 07/07/25 Rx release 24 hr pantoprazole 40 mg tablet,delayed 40 mg PO DAILY 04/02/25 07/07/25 History release insulin aspart U-100 100 unit/mL 1 sliding scale dose subcut 04/15/25 07/07/25 Rx (3 mL) subcutaneous pen (Novolog USEASDIRECTD #15 mL FlexPen U-100 Insulin aspart) pen needle, diabetic 33 gauge x #400 ea 05/07/25 06/30/25 Rx 5/16" (Comfort EZ Pen [place]) furosemide 20 mg tablet 20 mg PO QAM #90 tabs 05/19/25 07/07/25 Rx atorvastatin 40 mg tablet 40 mg PO DAILY #90 tabs 07/02/25 07/07/25 Rx Past Med/Surg History Problem List (Updated 07/07/25 @ 06:15 by Sanna Mendiola PA-C) Type 2 diabetes mellitus Constipation (Acute) Intractable abdominal pain (Acute) Acute hyperglycemia (Acute) Acute urinary retention (Acute) Peripheral vascular disease Insomnia Shoulder pain, bilateral Weight decrease Health care maintenance Stage 3b chronic kidney disease Proteinuria Chronic kidney disease, stage 4 (severe) Subclavian artery stenosis Sensorineural hearing loss (SNHL) of both ears Occlusion and stenosis of unspecified carotid artery Gout CKD stage 3 due to type 2 diabetes mellitus Carpal tunnel syndrome, unspecified upper limb Atherosclerotic heart disease of [place] coronary artery without angina pectoris Closed left scapular fracture Shoulder pain 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 Personal history of diabetic foot ulcer Secondary renal hyperparathyroidism (Acute) Stage III chronic kidney disease (Acute) Diabetes mellitus (Chronic) Vitamin D deficiency (Acute) Low back pain (Acute) Hypothyroidism (Acute) Hypertension (Acute) Enlarged prostate without lower urinary tract symptoms (luts) (Acute) Dyslipidemia (Acute) Diabetic nephropathy (Acute) Chronic gout (Acute) CAD (coronary artery disease) (Acute) Renovascular hypertension (Acute) Medical History COVID Benign neoplasm of bladder Ulcer of right midfoot Hallux valgus (acquired), left foot Breakdown (mechanical) of carotid arterial graft (bypass), sequela Joint pain, knee Osteomyelitis of foot L Foot Surgical History History of bladder surgery H/O carotid endarterectomy Hx of total knee arthroplasty (2016) Family History Brother Alzheimer disease Sister Diabetes Other Osteomyelitis of foot Denies family history of Colon cancer Ovarian cancer Prostate cancer Myocardial infarction Breast cancer Social History Smoking Status: Former smoker Tobacco Type: Declines Age Started Using Tobacco: 17; Age Quit Using Tobacco: 49; packs per day: 1; Second Hand Exposure: No; Hx Alcohol Use: No Hx Substance Use: No Preferred Language: Italian Communication Ability: Effective Staff Weapons Officer Required: No Beliefs That Will Affect Care: None marital status: / Current Living Situation: Spouse current occupational status: retired Feels Safe at Home: Yes Childhood Exposure to Second-Hand Smoke: No Dental Care, Regularly: No Physical Activity Frequency: Does not Exercise Seatbelt Use: always Assistive Devices: Cane, Denture - Upper and Glasses Review of Systems Review of Systems: All systems reviewed & are unremarkable except as noted in Subjective Physical Exam Physical Exam: General: No acute distress Skin: Warm and dry Head: Normocephalic, atraumatic Eyes: PERRL, conjunctivae clear, sclera non-icteric ENT: External ear and ear canal without swelling; nose atraumatic; good dentition, tongue normal appearance, pharynx normal Neck: Supple, no LAD Cardio: RRR, no M/G/R, S1 and S2 normal Resp: No respiratory distress, Lungs CTA in all lobes bilaterally, no wheezes, rales, or rhonchi Abdomen: Soft, symmetric, slightly tender to palpation lower abdomen, distended but no signs of peritonitis; no rebound tenderness; No masses or hepatosplenomegaly; Bowel sounds normoactive MSK: No deformities; pulses palpable and equal; no edema. Neuro: Awake, alert; Sensation intact bilaterally; CN grossly intact Psych: Appropriate mood and affect; good judgement and insight. Results & Data Results & Data Vital Signs (Past 12 Hours) Vital Signs Temp Pulse Resp BP Pulse Ox O2 Del Method 07/07/25 04:08 138/76 07/07/25 04:08 138/76 07/07/25 03:50 53 L 18 07/07/25 03:15 195/94 H 07/07/25 03:15 55 L 07/07/25 03:11 205/75 H 07/07/25 03:08 Room Air 07/07/25 03:05 36.5 C 63 16 172/74 H 99 Room Air Laboratory Results 07/07/25 07/07/25 03:25 03:14 WBC 10.63 RBC 4.39 L Hgb 12.2 L Hct 38.1 L MCV 86.8 MCH 27.8 MCHC 32.0 RDW Std Deviation 47.6 H RDW Coeff of Robin 15.0 H Plt Count 229 MPV 10.0 Immature Gran % (Auto) 0.3 Neut % (Auto) 53.3 Lymph % (Auto) 32.7 Coal % (Auto) 8.9 Eos % (Auto) 4.2 Baso % (Auto) 0.6 Neut # (Auto) 5.66 Lymph # (Auto) 3.48 H Coal # (Auto) 0.95 H Eos # (Auto) 0.45 Baso # (Auto) 0.06 Immature Gran # (Auto) 0.03 Sodium 135 L Potassium 4.0 Chloride 103 Carbon Dioxide 20 L Anion Gap 12 H BUN 79 H Creatinine 2.09 H Est Cr Clr Drug Dosing 31.5 eGFR 30.45 BUN/Creatinine Ratio 37.8 H Glucose 217 H Calcium 9.4 Total Bilirubin 0.9 AST 15 ALT 15 Alkaline Phosphatase 56 Total Protein 7.2 Albumin 4.1 Globulin 3.1 Albumin/Globulin Ratio 1.3 Lipase 42 Urine Color Yellow Urine Appearance Clear Urine pH 6.5 Ur Specific [place] 1.016 Urine Protein 1+ H Urine Glucose (UA) 3+ H Urine Ketones Negative Urine Blood Negative Urine Nitrite Negative Urine Bilirubin Negative Urine Urobilinogen Negative Ur Leukocyte Esterase Negative Urine WBC (Auto) 0-5 Urine RBC (Auto) 0-2 U Hyaline Cast (Auto) 0-2 U Epithel Cells (Auto) 0-2 Urine Bacteria (Auto) None Seen Urine Comment Diagnostic Findings Abdomen/Pelvis CT 07/07/25 03:08 EXAM: CT abd pelvis wo con CLINICAL HISTORY: lower abd pain TECHNIQUE: Contiguous axial images were obtained from the level of the diaphragm to the pubic symphysis without intravenous or oral contrast. Coronal and sagittal reconstructions were likewise performed and indicated to increase the sensitivity for detecting clinically relevant pathology. CT scan was performed according to ALARA (as low as reasonable achievable). COMPARISON: None. FINDINGS: Few atelectatic bands are noted involving bilateral lung bases. Evaluation of the abdominal and pelvic visceral organs is limited without intravenous contrast. The unenhanced liver, spleen, pancreas, and adrenal glands are grossly unremarkable. The gallbladder is present. The kidneys are normal in size and attenuation without obvious calcification. There is no hydronephrosis . Mild bilateral perinephric stranding. The ureters are normal in caliber. The urinary bladder is normal in contour. Pelvic viscera are grossly unremarkable. No adenopathy or fluid collections are seen. No evidence of focal or diffuse bowel wall thickening or evidence of bowel obstruction is seen. The appendix is visualized in the right lower quadrant and appears within normal limits. Diffuse atherosclerotic calcification is noted involving aorta iliac arteries. Evidence of intraluminal linear calcification is noted involving infrarenal abdominal aorta- possibility of calcified intimal flap /dissection - angiography correlation suggested. No aggressive appearing osseous lesions are identified. Colonic fecal and gaseous distension Fat containing left sided inguinal hernia. Degenerative changes involving visualized spine. IMPRESSION: Diffuse atherosclerotic calcification is noted involving aorta iliac arteries. evidence of intraluminal linear calcification is noted involving infrarenal abdominal aorta- possibility of calcified intimal flap /dissection - angiography correlation suggested. Colonic fecal and gaseous distension- possibility of constipation - clinical correlation suggested. Mild bilateral perinephric fat stranding.could represent acute kidney injury Fat containing left sided inguinal hernia. Electronically signed by Jeff Dubois 07-07-2025 04:23 AM Abdomen/Pelvis CTA 07/07/25 04:30 EXAM: CT angio abdomen pelvis w con CLINICAL HISTORY: possibility of calcified intimal flap /dissection TECHNIQUE: Contrast enhanced thin slice CT angiography scan of the abdominal aorta was performed with intravenous contrast. Angiographic images were processed, 3D MIP images were acquired for interpretation. Contiguous axial images were obtained. Reformatted coronal and sagittal images were also reviewed. If IV contrast material had not been administered, the likelihood of detecting abnormalities relevant to the patients condition would have been substantially decreased. CT scan was performed according to ALARA (as low as reasonable achievable). COMPARISON: Jun 02:41:00 . FINDINGS: Diffuse atherosclerotic calcification is noted involving aorta and iliac arteries. Evidence of multifocal calcified intimal flap are noted involving infrarenal abdominal aorta Stent are noted involving bilateral renal artery origin, appears patent. Mild bilateral perinephric fat stranding. Colonic fecal and gaseous distension- constipation changes. Fat containing left sided inguinal hernia. Abdominal aorta is normal in course, calibre and opacification. Origin of coeliac artery, superior mesenteric artery , bilateral main renal and lumbar arteries are normal with no hemodynamically significant ostial stenosis noted. Bilateral common, external and internal iliac arteries are normal in course, caliber and opacification. Solid abdominal organs including liver, spleen, pancreas reveal no significant abnormality. No evidence of ascites. IMPRESSION: 1. Diffuse atherosclerotic calcification is noted involving aorta and iliac arteries.-stable. 2. Evidence of multifocal calcified intimal flaps are noted involving infrarenal abdominal aorta. 3. Stent are noted involving bilateral renal artery origin, appears patent. 4. Mild bilateral perinephric fat stranding.-stable. 5. Colonic fecal and gaseous distension- constipation changes.-stable. 6. Fat containing left sided inguinal hernia.-stable. Electronically signed by Jeff Dubois 07-07-2025 05:19 AM Medications Administered NSS to 50 mL Zofran 4 mg IV Morphine 4 mg IV Acetaminophen 1 g IV Code Status & VTE Plan Code Status DNR/DNI Supervising Physician Co-Signing Physician Notes Attending addendum: I have physically seen this patient, have supervised the NYDIA's activities, and agree with the H&P unless as otherwise noted. Assessment and Plan: The patient is an 84-year-old male with past medical history including neuropathy, CKD stage IV, insomnia, CAD, hypertension, BPH, hypothyroidism, PVD, and chronic bilateral Bharat scapular pain. He presents to the emergency department due to severe lower abdominal cramping since 5:00 at night prior to arrival. CT scan of abdomen and pelvis suggest significant constipation. Patient was receiving an enema in the emergency department, but due to persistent intractable abdominal pain, [facility] Constipation/intractable abdominal pain- Last BM was in the morning prior to arrival. Patient did receive a soapsuds enema in the ED CBC with differential is normal CT abdomen pelvis supports colonic fecal gaseous distention, also notes diffuse atherosclerotic calcifications, bilateral perinephric fat stranding, and fat-co ntaining left-sided inguinal hernia CTA scan abdomen and pelvis supported CTAP findings Placed on full liquid diet until BM occurs LR at 80 mL/h Acetaminophen 650 mg by mouth every 6 hours as needed for mild pain or fever Avoid opioids to avoid worsening constipation Bowel regimen: MiraLAX, lactulose and senna Additional enemas will be provided as needed Diabetes mellitus type 2 most recent A1c on 04/06 was 7.3 Hold outpatient regimen for now, due to likely decreased oral intake Lantus 8 units SQ twice daily Sliding scale as noted Will be adjusted as needed CKD stage IV history of ROSE status post right ROSE stent at [facility] 2009 Creatinine 2.09 on admission with baseline 2.2-2.4 Follow serially CAD/PVD/hypertension/subclavian artery stenosis- Status post bilateral CEA. Continue aspirin, carvedilol, furosemide, Dralzine and nifedipine BPH- Continue doxazosin Hypothyroidism- Continue levothyroxine GERD- Continue pantoprazole PG Care Time/CCT Total # of Minutes Spent Total Time Spent with Patient: Total time spent is greater than 50% in coordination of care (as documented) at patient's floor/unit and/or counseling patient: Coding Level of Care Code 31041 INT INP/OBS CARE MIN Diagnoses Constipation K59.00 Intractable abdominal pain R10.9 Type 2 diabetes mellitus E11.9
[2025-07-07] MEDS ORDERED: GLUCAGON FOR INJ 1 MG VIAL SQ PRN (06:18)
[2025-07-07] MEDS ORDERED: GLUCOSE 40% GEL 15 GM TUBE PO PRN (06:18)
[2025-07-07] MEDS ORDERED: DEXTROSE 50% 50 ML SYRINGE IV PRN (06:18)
[2025-07-07] MEDS ORDERED: GLUCOSE 10 TAB/TUBE PO PRN (06:18)
[2025-07-07] MEDS ORDERED: CARBOHYDRATES FOR HYPOGLYCEMIA PO PRN (06:18)
[2025-07-07] MEDS: LACTATED RINGER'S 1,000 ML IV SCH (06:38)
[2025-07-07] MEDS: INSULIN ASPART PER UNIT CHARGE SC SCH (07:51)
[2025-07-07] MEDS ORDERED: ACETAMINOPHEN 500 MG TAB PO PRN (08:58)
[2025-07-07] MEDS ORDERED: POLYETHYLENE (MIRALAX) 17 GM PACK PO PRN (08:58)
[2025-07-07] MEDS ORDERED: ONDANSETRON INJ 2 MG/ML 2 ML VIAL IV PRN (08:58)
[2025-07-07] MEDS ORDERED: MAGNESIUM HYDROXIDE SUSP 30 ML UDC PO PRN (08:58)
[2025-07-07] MEDS ORDERED: MELATONIN 3 MG TAB PO PRN (08:58)
[2025-07-07] MEDS: LANTUS PER UNIT CHARGE SQ SCH (09:22)
[2025-07-07] MEDS: NIFEdipine EXTENDED REL 30 MG TABCR PO SCH (10:15)
[2025-07-07] MEDS: POLYETHYLENE (MIRALAX) 17 GM PACK PO SCH (10:15)
[2025-07-07] MEDS: LEVOTHYROXINE SODIUM 137 MCG TABLET PO SCH (10:16)
[2025-07-07] MEDS: DOXAZosin MESYLATE TAB 2 MG TAB PO SCH (10:16)
[2025-07-07] MEDS: ATORVASTATIN 40 MG TAB PO SCH (10:17)
[2025-07-07] MEDS: ASPIRIN 81 MG ECTAB PO SCH (10:17)
[2025-07-07] MEDS: FUROSEMIDE 20 MG TAB PO SCH (10:17)
[2025-07-07] MEDS: LACTULOSE SYRUP 20 GM/30 ML UDC PO SCH (10:18)
--- NOTE | 2025-07-07 14:00 | Discharge Summary ---
Discharge Summary Date of Service July 07, 2025 Principal Dx & Hospital Course #1 = Principal Diagnosis (1) Constipation: (2) Intractable abdominal pain: (3) Type 2 diabetes mellitus: Plan 84-year-old male PMHx T2DM with neuropathy, CKD stage IV, insomnia, CAD, HTN, BPH, hypothyroidism, PVD, and chronic periscapular pain bilaterally who presents for lower abdominal cramping since 1700 night SATURATION DIVER. Workup concerning for consti pation, no clear signs of infection or clear evidence of ischemic gut. Pt would benefit from having additional radiologist evaluate films obtained in ED. Pt to be admitted for constipation and intractable abdominal pain. He was found to have constipation. He was given aggressive bowel regimen. After patient had a bowel movement, he felt significantly improved. Imaging without evidence of acute abnormality. Due to significant constipation, pt also had urinary retention for which he had lees placed. Lees was removed and pt voided prior to discharge. For bowel regimen, pt sent home on Senna at night and Miralax in the morning. Pt noted to have bradycardia in the 50s. Pt is asymptomatic. Pt also instructed to monitor BP and HR at home. Further management as outpatient. #Constipation/Intractable abdominal pain - resolved Last BM the morning SATURATION DIVER, states it is normal for him but he does often have straining. No blood. Soapsuds enema provided in ED. - CBC without leukocytosis, no indications for infection - CTAP supports colonic fecal gaseous distention, also notes diffuse atherosclerotic calcifications, bilateral perinephric fat stranding, and fat-containing L-sided inguinal hernia - CTA A/P supports CTAP findings - Full liquid diet until BM occurs - IVF LR @ 80 mL/hr - Acetaminophen prn fever/pain -- avoid opioids in setting of constipation - Regimen as follows: MiraLAX, lactulose, and senna chandrika; MOM + MiraLAX prn - Consider additional enemas as necessary #T2DM H/o DMT2; At home regimen includes Jardiance, insulin aspart SSI, glargine 17U am. - resume home regiment #CKD, stage IV- Follows with nephrology, most recent visit 06/29/2025. [place] s[place] [facility] [place] Baseline Cr 2.2-2.4, Cr at admission 2.09 - Trend BMP #CAD/HLD/PVD- H/o carotid stenosis s/p bilateral CEA; ASA, atorvastatin - continue #HTN- H/o R subclavian artery stenosis (ALL BP READINGS TO BE TAKEN IN L ARM); Carvedilol, furosemide, hydralazine, nifedipine - continue #BPH- Doxazosin - continue #Hypothyroidism- Levothyroxine - continue #GERD- Pantoprazole- continue Admission HPI Per Admitting Provider 84-year-old male PMHx T2DM with neuropathy, CKD stage IV, insomnia, CAD, HTN, BPH, hypothyroidism, PVD, and chronic periscapular pain bilaterally who presents for lower abdominal cramping since 1700 night SATURATION DIVER. Reports significant constipation. States that he is having abdominal discomfort at the bottom of his abdomen, stating that it feels "like I have to go but I just cannot." St ates that the day SATURATION DIVER he did have a bowel movement in the a.m. and felt that it was normal, but he does often find himself straining to have a bowel movement. He still passing flatulence. Denies any nausea or vomiting. Patient reports trying stool softeners at home without relief. He feels his abdomen is distended and states that is not necessarily pain he is having, but discomfort. Patient does have a history of diabetes with neuropathy, follows with podiatry. He denies chest pain, SOB, palpitations, diarrhea, numbness/tingling, fever/chills, URI symptoms, LUTS, weakness, lightheadedness, or syncope. ED evaluation CBC without leukocytosis, H&H 12.2/30.1; CMP sodium 135, CO2 20, anion gap 12, BUN 79, creatinine 2.09, ratio 37.8, glucose 217; lipase 42; UA without infection; CTAP diffuse atherosclerotic calcification involving the aortic iliac arteries, possibility of calcified intimal flap/dissection, colonic fecal and gaseous distention (constipation), mild bilateral perinephric fat stranding (could represent SANDRA), fat-containing L sided inguinal hernia; CTA A/P diffuse atherosclerotic calcification, evidence of multifocal calcified labs, stent involving bilateral renal artery appears patent, mild bilateral perinephric fat stranding, colonic fecal and gaseous distention, fat-containing L-sided inguinal hernia,; provided with 250 mL NSS, Zofran 4 mg IV, morphine 4 mg IV, and acetaminophen 1 g IV in ED. Please see Dr. Armijo's attestation for adjustments/additions to treatment plan. Discharge Exam Gen: no acute distress, lying in bed comfortable HEENT: NC/AT, MMM Lungs: nonlabored breathing, CTAB CVS: [id number], bradycardic Abd: nl bowel sounds, soft, NT / ND : + lees Ext: no edema Neuro: AAOx3 Psych: calm cooperative Discharge Plan Discharge Items Patient Disposition: Home - Self-Care Reason For Visit: ABD PAIN, CONSTIPATED Discharge Diagnosis: Severe Constipation Condition on Discharge: Good Activity: Resume your previous activity Non-emergency contact: Primary Care Provider Call non-emergency contact if: you have any medication questions and your symptoms worsen Follow-up/Referrals: Kumar Lujan, [Primary Care Provider] - Diet: Carb Consistent or DM2 Addtl Attending Provider Instructions: - cont laxative as prescribed - monitor your blood pressure and heart rate at home - follow up with your primary care doctor in about 7 to 10 days Pending Studies at Discharge: No Stand-Alone Forms: My [facility] [employer], Smoking Cessation Medications and DC Order Prescriptions: New sennosides [Senna Lax] 8.6 mg Tablet 17.2 mg PO HS Qty: 60 0RF polyethylene glycol 3350 [Miralax] 17 gram Powder In Packet 17 g PO DAILY Qty: 100 0RF Continued (DME) insulin syringe-needle U-100 [Advocate Syringes] 1 mL 30 gauge x 5/16 syringe See Rx Instructions .Route Qty: 100 3RF Rx Instructions: use to take insulin 4 times a day insulin aspart U-100 [Novolog FlexPen U-100 Insulin] 100 unit/mL (3 mL) insulin pen 1 sliding scale dose subcut USEASDIRECTD Qty: 15 6RF Rx Instructions: 2-8 units before meals according to sliding scale (DME) Comfort EZ Pen Dana 33 gauge x 5/16" needle See Rx Instructions .Route Qty: 400 3RF Rx Instructions: use 4 times a day with insulin. E11.9 atorvastatin 40 mg tablet 40 mg PO DAILY Qty: 90 3RF acetaminophen 500 mg tablet 500 mg PO Q4H PRN (Reason: fever or pain) aspirin 81 mg tablet,delayed release (DR/EC) 81 mg PO DAILY pantoprazole 40 mg tablet,delayed release (DR/EC) 40 mg PO DAILY levothyroxine 137 mcg tablet 137 mcg PO DAILY Qty: 90 3RF carvedilol 12.5 mg tablet 12.5 mg PO BID Qty: 180 3RF Rx Instructions: must administer with a meal/food hydralazine 100 mg tablet 100 mg PO TID 90 Days Qty: 270 3RF nifedipine 90 mg tablet extended release 24hr 90 mg PO DAILY Qty: 90 3RF Jardiance 10 mg tablet 10 mg PO DAILY Qty: 90 3RF Lantus Solostar U-100 Insulin 100 unit/mL (3 mL) insulin pen 17 unit SQ QAM Qty: 15 3RF doxazosin 2 mg tablet 2 mg PO DAILY Qty: 90 3RF furosemide 20 mg tablet 20 mg PO QAM Qty: 90 3RF Discharge Orders: Discharge Order (Routine); Ordered 07/07/25 Ordered By: Mindy Alfred Admission Data Admit Date/Time: 07/07/25 05:53 Attending Provider: Manuelito Armijo Admit Provider: Manuelito Armijo Primary Care Provider: Kumar Lujan Other Providers: Manuelito Armijo Hospital Stay Data Consultations 07/07/25 05:27 ED Decision to Admit Stat Diagnostic Imagining Performed 07/07/25 03:08 CT abd pelvis wo con Stat 07/07/25 04:30 CTA abdomen pelvis w con [CT angio abdomen pelvis w con] Stat Discharge Instructions Given to Patient (Per Discharging Provider) - cont laxative as prescribed - monitor your blood pressure and heart rate at home - follow up with your primary care doctor in about 7 to 10 days Total Time Total Time Spent Total Time Spent (In Minutes): 45 Coding Level of Care Code 99728 INP/OBS DISCH >30 MIN Diagnoses Constipation K59.00 Intractable abdominal pain R10.9 Type 2 diabetes mellitus E11.9
[2025-07-07] MEDS ORDERED: SENNA 8.6 MG TAB PO SCH (21:00)
== END 2025-07-07 17:47 | disposition home or self-care (01) ==
LOC: SUATTDRO → EDINP 03:00 → ED 03:00 → EDINP 09:01